=== PATIENT | male | born 1970 | race African-American/Black ===

== ENCOUNTER 2020-09-28 17:55 | Inpatient (IN) ==
[2020-09-28] MEDS ORDERED: SODIUM CHLORIDE 0.9% 1,000 ML IV STA ×3 (18:25→22:09)
[2020-09-28] MEDS ORDERED: PIPERACILLIN/TAZOBACTAM 3,375 MG in SODIUM CHLORIDE 0.9% 100 ML IV STA (18:25)
[2020-09-28 19:03] LABS: Basophils % 0.1 % (0.0-0.8); Eosinophils % 0.1 % (0.00-10.9); Hematocrit 29.2 VOL% (42.0-52.0); Hemoglobin 9.5 GM/DL (14.0-18.0); Immature Granulocytes % 1.3 %; Immature Granulocytes Absolute 0.21 #; Lymphocytes # 1.4 10*3/uL (1.4-4.0); Lymphocytes % 8.3 % (21.2-54.2); Mean Corpuscular HGB Conc 32.5 GM/DL (32-36); Mean Corpuscular Volume 87.2 FL (87-102); Monocytes % 7.9 % (1.7-12.7); Neutrophils % 82.3 % (38.7-73.9); Platelet Count 320 T/CUMM (130-400); Red Blood Count 3.35 MC/CUMM (3.8-5.5); Red Cell Distribution Width 11.7 % (9.3-17.3); White Blood Count 16.8 T/CUMM (4-12)
[2020-09-28 19:23] LABS: Alanine Aminotransferase 75 U/L (16-61); Albumin 2.1 G/DL (3.4-5.0); Alkaline Phosphatase 193 U/L (45-117); Aspartate Amino Transferase 43 U/L (0-37); Bilirubin,Total < 0.39 MG/DL (0.2-1.0); Blood Urea Nitrogen 24 MG/DL (7-18); Calcium 8.4 MG/DL (8.5-10.1); Carbon Dioxide 26 MMOL/L (21-32); Estimated Glom Filtration Rate 75 ML/MIN; Glucose 217 MG/DL (74-106); Osmolality,Calculated 278.2 MOS/KG (273-304); Potassium 3.9 MMOL/L (3.5-5.1); Sodium 134 MMOL/L (136-145)
[2020-09-28] MEDS ORDERED: SODIUM CHLORIDE 0.9% 125 ML IV STA (19:25)
[2020-09-28] MEDS ORDERED: VANCOMYCIN INJ 1,250 MG in SODIUM CHLORIDE 0.9% 250 ML IV STA (19:36)
[2020-09-28 20:01] LABS: Sedimentation Rate-Westergren 118 MM/HR (0-20)
[2020-09-28 20:17] LABS: Hepatitis B Core IgM Quant 0.14 Index; Hepatitis B Surface Ag Quant < 0.10 Index; Hepatitis B Surface Ag Result Non-Reactive (NonReactive); Hepatitis C Virus Ab Quant 0.05 Index; Hepatitis C Virus Ab Result Non-Reactive (NonReactive)
[2020-09-28] MEDS ORDERED: VANCOMYCIN 1,000 MG VIAL ONE (20:36)
[2020-09-28] MEDS: SODIUM CHLORIDE 0.9% 1,000 ML IV SCH (22:15)
[2020-09-28] MEDS ORDERED: ACETAMINOPHEN 500 MG TABLET PO STA (22:40)
[2020-09-28] MEDS ORDERED: ACETAMINOPHEN 500 MG TABLET ONE (22:41)
[2020-09-28] MEDS ORDERED: ONDANSETRON 4 MG/2 ML VIAL ONE (22:45)
[2020-09-28] MEDS ORDERED: HYDROmorphone 2 MG/1 ML VIAL ONE (22:45)
[2020-09-28] MEDS ORDERED: HYDROmorphone 2 MG/1 ML VIAL IV STA (22:54)
[2020-09-28] MEDS ORDERED: ONDANSETRON 4 MG/2 ML VIAL IV STA (22:54)
[2020-09-28] MEDS ORDERED: ALBUTEROL/IPRATROPIUM 3 ML NEB RESP TX PRN (23:40)
[2020-09-28] MEDS ORDERED: DOCUSATE SODIUM 100 MG CAPSULE PO PRN (23:40)
[2020-09-28] MEDS ORDERED: ONDANSETRON 4 MG/2 ML VIAL IV PRN (23:40)
[2020-09-28] MEDS ORDERED: GLUCAGON 1 MG VIAL IM PRN (23:40)
[2020-09-28] MEDS ORDERED: DEXTROSE 50% 25 GM/50 ML VIAL IV PRN (23:40)
[2020-09-28] MEDS ORDERED: ACETAMINOPHEN 325 MG TABLET PO PRN (23:40)
[2020-09-29] MEDS: ENOXAPARIN 40 MG/0.4 ML SYRINGE SUBCUT SCH (00:53)
[2020-09-29] MEDS: PIPERACILLIN/TAZOBACTAM 3,375 MG in SODIUM CHLORIDE 0.9% 100 ML IV SCH ×3 (02:13→18:16)
[2020-09-29] MEDS: HYDROmorphone 2 MG/1 ML VIAL IV PRN (03:04)
[2020-09-29] MEDS: SODIUM CHLORIDE 0.9% 1,000 ML IV SCH ×2 (03:06→13:53)
[2020-09-29 03:17] LABS: Bilirubin,Urine Negative (Negative); Blood, Urine Negative (Negative); Glucose,Urine (UA) >=500 mg/dL (Negative); Hyaline Casts,Urine 1 /LPF (0-3); Ketones,Urine Negative (Negative); Nitrite,Urine Negative (Negative); Protein,Urine 100 MG/DL; RBC,Urine 3 /HPF (0-4); Red Blood Cell Casts,Urine 1 /LPF (<1); Urine Appearance CLEAR (Clear); Urine Color Yellow (Yellow); Urine Specific Gravity 1.023 (1.001-1.035); Urine Urobilinogen < 2.0 EU/DL (0.2-1.0); WBC,Urine 2 /HPF (0-6)
[2020-09-29 03:24] LABS: Barbiturates Screen,Urine Negative (Negative); Benzodiazepines Screen,Urine Negative (Negative); Cannabinoid Screen,Urine Negative (Negative); Opiate Screen,Urine Positive (Negative); Phencyclidine Screen,Urine Negative (Negative)
[2020-09-29 07:05] LABS: Basophils # 0.1 10*3/uL (0.0-0.2); Basophils % 0.5 % (0.0-0.8); Eosinophils % 0.2 % (0.00-10.9); Hematocrit 25.9 VOL% (42.0-52.0); Hemoglobin 8.4 GM/DL (14.0-18.0); Immature Granulocytes % 1.1 %; Immature Granulocytes Absolute 0.15 #; Lymphocytes # 1.5 10*3/uL (1.4-4.0); Lymphocytes % 10.3 % (21.2-54.2); Mean Corpuscular HGB Conc 32.4 GM/DL (32-36); Mean Platelet Volume 10.3 FL (9.6-12.0); Neutrophils % 78.9 % (38.7-73.9); Platelet Count 305 T/CUMM (130-400); Red Blood Count 2.91 MC/CUMM (3.8-5.5); Red Cell Distribution Width 11.9 % (9.3-17.3)
[2020-09-29] MEDS: INSULIN LISPRO 100 UNIT/ML SUBCUT SCH ×2 (07:50→11:30)
[2020-09-29] MEDS ORDERED: INSULIN ASPART PROTAMINE/ASPART 70/30 100 UNIT/ML SUBCUT SCH ×2 (08:00→17:00)
[2020-09-29] MEDS ORDERED: ceFAZolin 1,000 MG in SYRINGE 1 EACH IV ONE (08:05)
[2020-09-29 08:18] LABS: Albumin 1.9 G/DL (3.4-5.0); Bilirubin,Total 0.9 MG/DL (0.2-1.0); Calcium 8.1 MG/DL (8.5-10.1); Osmolality,Calculated 285.5 MOS/KG (273-304); Potassium 3.9 MMOL/L (3.5-5.1); Total Protein 6.3 G/DL (6.4-8.3)
[2020-09-29] MEDS ORDERED: propofoL 200 MG/20 ML VIAL IV ONE ×2 (09:46→11:07)
[2020-09-29] MEDS ORDERED: fentaNYL 100 MCG/2 ML VIAL ONE (09:46)
[2020-09-29] MEDS ORDERED: ONDANSETRON 4 MG/2 ML VIAL ONE (09:46)
[2020-09-29] MEDS ORDERED: LIDOCAINE 2% 5 ML VIAL ONE (09:46)
[2020-09-29] MEDS ORDERED: SEVOFLURANE 1 UNIT/15 MINUTE INH ONE (11:10)
[2020-09-29] MEDS ORDERED: PHENYLEPHRINE 1 MG/10 ML SYRINGE IV ONE (11:12)
[2020-09-29] MEDS ORDERED: ePHEDrine 50 MG/ML VIAL ONE (11:37)
[2020-09-29] MEDS ORDERED: GLYCOPYRROLATE 0.4 MG/2 ML VIAL ONE (11:37)
[2020-09-29] MEDS ORDERED: NALOXONE 0.4 MG/ML VIAL ONE (11:38)
[2020-09-29] MEDS ORDERED: NOREPINEPHRINE 4 MG/4 ML VIAL IV ONE (11:49)
[2020-09-29 12:15] LABS: Basophils % 0.1 % (0.0-0.8); Eosinophils % 0.1 % (0.00-10.9); Hemoglobin 8.6 GM/DL (14.0-18.0); Immature Granulocytes % 2.4 %; Immature Granulocytes Absolute 0.51 #; Lymphocytes # 3.6 10*3/uL (1.4-4.0); Lymphocytes % 16.7 % (21.2-54.2); Mean Corpuscular HGB Conc 31.9 GM/DL (32-36); Monocytes % 9.2 % (1.7-12.7); Neutrophils % 71.5 % (38.7-73.9); Platelet Count 323 T/CUMM (130-400); Red Cell Distribution Width 11.9 % (9.3-17.3); White Blood Count 21.2 T/CUMM (4-12)
[2020-09-29] MEDS ORDERED: FUROSEMIDE 40 MG/4 ML VIAL IV ONE (12:18)
[2020-09-29] MEDS ORDERED: MIDAZOLAM 2 MG/2 ML VIAL ONE (12:28)
[2020-09-29 12:44] LABS: Bilirubin,Total 0.4 MG/DL (0.2-1.0); Calcium 7.8 MG/DL (8.5-10.1); Osmolality,Calculated 288.4 MOS/KG (273-304); Potassium 3.7 MMOL/L (3.5-5.1); Total Protein 5.5 G/DL (6.4-8.3)
[2020-09-29 13:06] LABS: ABG Base Excess -0.7 MMOL/L (-2.5-2.5); ABG HCO3 23.6 MMOL/L (20-26); ABG PCO2 37.4 MM HG (35-48); ABG PH 7.418 (7.35-7.45); ABG PO2 77.1 MM HG (80-95); ABG TCO2 24.8 MMOL/L (23-27)
[2020-09-29] MEDS ORDERED: MIDAZOLAM 10 MG/2 ML VIAL ONE ×2 (13:39→13:50)
[2020-09-29] MEDS ORDERED: MIDAZOLAM 2 MG/2 ML VIAL IV ONE (13:39)
[2020-09-29 13:42] LABS: Bilirubin,Urine Negative (Negative); Blood, Urine Small mg/dL (Negative); Glucose,Urine (UA) >=500 mg/dL (Negative); Hyaline Casts,Urine 1 /LPF (0-3); Ketones,Urine Negative (Negative); Mucus,Urine Occasional /LPF (Occasional); Nitrite,Urine Negative (Negative); Protein,Urine 100 MG/DL; RBC,Urine 18 /HPF (0-4); Squamous Epithelial Cell,Urine Occasional /HPF (0-10); Urine Appearance Slightly Hazy (Clear); Urine Color Yellow (Yellow); Urine Specific Gravity 1.014 (1.001-1.035); Urine Urobilinogen < 2.0 EU/DL (0.2-1.0); WBC,Urine 66 /HPF (0-6)
[2020-09-29] MEDS ORDERED: NOREPINEPHRINE 16 MG in DEXTROSE 5% 234 ML IV PRN (14:04)
[2020-09-29 14:23] LABS: Partial Thromboplastin Time 27.5 SECS (23.9-33.8)
[2020-09-29] MEDS: MIDAZOLAM 100 MG in SODIUM CHLORIDE 0.9% 80 ML IV SCH (15:30)
[2020-09-29] MEDS: CISATRACURIUM 200 MG in SODIUM CHLORIDE 0.9% 180 ML IV PRN (15:30)
[2020-09-29] MEDS: fentaNYL INJ 1,250 MCG in SODIUM CHLORIDE 0.9% 225 ML IV PRN ×2 (15:30→23:43)
[2020-09-29 16:13] LABS: Troponin I 0.166 NG/ML (0.00-0.045)
[2020-09-29] MEDS: VANCOMYCIN INJ 1,250 MG in SODIUM CHLORIDE 0.9% 250 ML IV SCH ×2 (16:15→20:43)
[2020-09-29] MEDS ORDERED: MAGNESIUM SULF RIDER 1 GM in PREMIX 1 EACH IV PRN (16:29)
[2020-09-29] MEDS: FUROSEMIDE 40 MG/4 ML VIAL IV SCH (17:18)
[2020-09-29] MEDS: ASPIRIN CHEW 81 MG TABLET PO SCH (17:18)
[2020-09-29] MEDS: carvediloL 6.25 MG TABLET PO SCH (17:18)
[2020-09-29] MEDS: POTASSIUM CHLORIDE RIDER 20 MEQ in PREMIX 1 EACH IV PRN ×2 (17:23→23:47)
[2020-09-29] MEDS ORDERED: INSULIN LISPRO 100 UNIT/ML SUBCUT SCH (18:00)
[2020-09-29] MEDS: INSULIN REGULAR 100 UNIT/ML IV SCH (20:33)
[2020-09-29] MEDS: PANTOPRAZOLE 40 MG VIAL IV SCH (20:34)
[2020-09-29] MEDS: MINERAL OIL/PETROLATUM OPH OINT 3.5 GM TUBE BOTH EYES SCH (20:36)
[2020-09-29] MEDS ORDERED: ROSUVASTATIN 20 MG TABLET PO SCH (21:00)
[2020-09-29 21:28] LABS: Basophils % 0.1 % (0.0-0.8); Hematocrit 24.1 VOL% (42.0-52.0); Hemoglobin 7.8 GM/DL (14.0-18.0); Immature Granulocytes % 1.2 %; Immature Granulocytes Absolute 0.18 #; Lymphocytes # 0.7 10*3/uL (1.4-4.0); Mean Corpuscular HGB Conc 32.4 GM/DL (32-36); Mean Platelet Volume 9.5 FL (9.6-12.0); Neutrophils % 87.7 % (38.7-73.9); Platelet Count 279 T/CUMM (130-400); Red Blood Count 2.74 MC/CUMM (3.8-5.5); Red Cell Distribution Width 11.9 % (9.3-17.3); White Blood Count 14.7 T/CUMM (4-12)
[2020-09-29 21:41] LABS: INR 1.1; PT Patient Result 11.7 SECS (9.8-11.9); Partial Thromboplastin Time 28.6 SECS (23.9-33.8)
[2020-09-29 23:29] LABS: Calcium 7.5 MG/DL (8.5-10.1); Osmolality,Calculated 297.1 MOS/KG (273-304); Potassium 3.6 MMOL/L (3.5-5.1)
[2020-09-30] MEDS: ENOXAPARIN 40 MG/0.4 ML SYRINGE SUBCUT SCH (00:10)
[2020-09-30] MEDS: INSULIN REGULAR 100 UNIT/ML IV SCH ×7 (00:17→22:10)
[2020-09-30] MEDS: PIPERACILLIN/TAZOBACTAM 3,375 MG in SODIUM CHLORIDE 0.9% 100 ML IV SCH ×3 (01:53→17:45)
[2020-09-30 03:36] LABS: ABG Base Excess 1.8 MMOL/L (-2.5-2.5); ABG HCO3 24.2 MMOL/L (20-26); ABG Oxygen Saturation 99.1 % (95-100); ABG PCO2 29.4 MM HG (35-48); ABG PH 7.533 (7.35-7.45); ABG PO2 331.3 MM HG (80-95); ABG TCO2 25.1 MMOL/L (23-27)
[2020-09-30 03:43] LABS: Basophils % 0.2 % (0.0-0.8); Eosinophils % 0.1 % (0.00-10.9); Hematocrit 23.2 VOL% (42.0-52.0); Hemoglobin 7.6 GM/DL (14.0-18.0); Immature Granulocytes % 0.9 %; Lymphocytes # 0.9 10*3/uL (1.4-4.0); Lymphocytes % 7.8 % (21.2-54.2); Mean Corpuscular HGB Conc 32.8 GM/DL (32-36); Mean Corpuscular Volume 86.9 FL (87-102); Mean Platelet Volume 9.6 FL (9.6-12.0); Monocytes % 5.3 % (1.7-12.7); Neutrophils % 85.7 % (38.7-73.9); Platelet Count 274 T/CUMM (130-400); Red Blood Count 2.67 MC/CUMM (3.8-5.5); Red Cell Distribution Width 11.9 % (9.3-17.3); White Blood Count 11.6 T/CUMM (4-12)
[2020-09-30 04:19] LABS: Calcium 7.6 MG/DL (8.5-10.1); INR 1.1; PT Patient Result 11.6 SECS (9.8-11.9); Partial Thromboplastin Time 29.6 SECS (23.9-33.8); Potassium 3.5 MMOL/L (3.5-5.1)
[2020-09-30 04:27] LABS: Bilirubin,Urine Negative (Negative); Blood, Urine Moderate mg/dL (Negative); Glucose,Urine (UA) >=500 mg/dL (Negative); Ketones,Urine Negative (Negative); Nitrite,Urine Negative (Negative); Protein,Urine Negative; Urine Appearance CLEAR (Clear); Urine Color Straw (Yellow); Urine Specific Gravity 1.009 (1.001-1.035); Urine Urobilinogen < 2.0 EU/DL (0.2-1.0)
[2020-09-30] MEDS: SODIUM CHLORIDE 0.9% 1,000 ML IV SCH ×2 (05:11→12:35)
[2020-09-30] MEDS: POTASSIUM CHLORIDE RIDER 20 MEQ in PREMIX 1 EACH IV PRN ×3 (05:20→14:20)
[2020-09-30] MEDS: fentaNYL INJ 1,250 MCG in SODIUM CHLORIDE 0.9% 225 ML IV PRN ×2 (08:00→16:30)
[2020-09-30] MEDS: carvediloL 6.25 MG TABLET PO SCH (08:15)
[2020-09-30] MEDS: ASPIRIN CHEW 81 MG TABLET PO SCH (08:31)
[2020-09-30] MEDS: MINERAL OIL/PETROLATUM OPH OINT 3.5 GM TUBE BOTH EYES SCH ×3 (08:33→21:45)
[2020-09-30] MEDS: VANCOMYCIN INJ 1,250 MG in SODIUM CHLORIDE 0.9% 250 ML IV SCH ×2 (08:33→21:51)
[2020-09-30] MEDS: FUROSEMIDE 40 MG/4 ML VIAL IV SCH ×2 (08:35→16:49)
[2020-09-30 09:14] LABS: Basophils % 0.2 % (0.0-0.8); Eosinophils % 0.3 % (0.00-10.9); Hematocrit 22.9 VOL% (42.0-52.0); Hemoglobin 7.8 GM/DL (14.0-18.0); Immature Granulocytes % 0.6 %; Immature Granulocytes Absolute 0.05 #; Lymphocytes # 0.7 10*3/uL (1.4-4.0); Mean Corpuscular HGB Conc 34.1 GM/DL (32-36); Mean Corpuscular Volume 85.8 FL (87-102); Mean Platelet Volume 9.6 FL (9.6-12.0); Neutrophils % 85.9 % (38.7-73.9); Platelet Count 256 T/CUMM (130-400); Red Blood Count 2.67 MC/CUMM (3.8-5.5); Red Cell Distribution Width 11.9 % (9.3-17.3); White Blood Count 8.9 T/CUMM (4-12)
[2020-09-30 09:26] LABS: INR 1.1; PT Patient Result 11.8 SECS (9.8-11.9); Partial Thromboplastin Time 29.3 SECS (23.9-33.8)
[2020-09-30 09:28] LABS: Calcium 7.6 MG/DL (8.5-10.1); Osmolality,Calculated 297.8 MOS/KG (273-304); Potassium 3.2 MMOL/L (3.5-5.1)
[2020-09-30 14:04] LABS: ABG Base Excess 1.8 MMOL/L (-2.5-2.5); ABG HCO3 26.1 MMOL/L (20-26); ABG Oxygen Saturation 99.9 % (95-100); ABG PCO2 33.4 MM HG (35-48); ABG PH 7.481 (7.35-7.45); ABG TCO2 22.5 MMOL/L (23-27)
[2020-09-30 14:15] LABS: Basophils % 0.1 % (0.0-0.8); Eosinophils % 0.3 % (0.00-10.9); Hematocrit 20.4 VOL% (42.0-52.0); Hemoglobin 6.7 GM/DL (14.0-18.0); Immature Granulocytes % 0.9 %; Immature Granulocytes Absolute 0.08 #; Lymphocytes # 0.8 10*3/uL (1.4-4.0); Lymphocytes % 8.6 % (21.2-54.2); Mean Corpuscular HGB Conc 32.8 GM/DL (32-36); Mean Corpuscular Volume 87.9 FL (87-102); Mean Platelet Volume 9.9 FL (9.6-12.0); Neutrophils % 85.1 % (38.7-73.9); Platelet Count 275 T/CUMM (130-400); Red Blood Count 2.32 MC/CUMM (3.8-5.5); Red Cell Distribution Width 11.9 % (9.3-17.3); White Blood Count 9.1 T/CUMM (4-12)
[2020-09-30 14:26] LABS: INR 1.1; PT Patient Result 11.7 SECS (9.8-11.9); Partial Thromboplastin Time 29.5 SECS (23.9-33.8)
[2020-09-30 14:36] LABS: Band Neutrophils 1 % (0-10); Lymphocytes 10 % (20-55); Segmented Neutrophils 83 % (50-85); Total Cells Counted 100
[2020-09-30 14:37] LABS: Calcium 7.5 MG/DL (8.5-10.1); Platelet Estimate Adequate; Potassium 3.4 MMOL/L (3.5-5.1)
[2020-09-30] MEDS ORDERED: SODIUM CHLORIDE 0.9% 1,000 ML IV PRN (14:47)
[2020-09-30 16:45] LABS: % Iron Saturation 23.1 % (18-50); Ferritin 568.3 ng/ml (26-388)
[2020-09-30] MEDS ORDERED: POTASSIUM CHLORIDE RIDER 10 MEQ in PREMIX 1 EACH IV PRN (17:05)
[2020-09-30 21:04] LABS: INR 1.1; PT Patient Result 11.9 SECS (9.8-11.9); Partial Thromboplastin Time 28.5 SECS (23.9-33.8)
[2020-09-30] MEDS: MIDAZOLAM 100 MG in SODIUM CHLORIDE 0.9% 80 ML IV SCH (21:15)
[2020-09-30 21:16] LABS: Calcium 7.7 MG/DL (8.5-10.1); Potassium 3.6 MMOL/L (3.5-5.1)
[2020-09-30] MEDS: carvediloL 3.125 MG TABLET PO SCH (21:21)
[2020-09-30] MEDS: PANTOPRAZOLE 40 MG VIAL IV SCH (21:45)
[2020-09-30 22:08] LABS: Folate 15.5 NG/ML (5.38-24.0)
[2020-09-30 22:28] LABS: Basophils % 0.2 % (0.0-0.8); Eosinophils % 0.4 % (0.00-10.9); Immature Granulocytes % 0.7 %; Immature Granulocytes Absolute 0.07 #; Lymphocytes # 0.6 10*3/uL (1.4-4.0); Lymphocytes % 6.1 % (21.2-54.2); Mean Corpuscular HGB Conc 32.3 GM/DL (32-36); Mean Corpuscular Volume 89.1 FL (87-102); Mean Platelet Volume 9.5 FL (9.6-12.0); Monocytes % 4.8 % (1.7-12.7); Neutrophils % 87.8 % (38.7-73.9); Platelet Count 262 T/CUMM (130-400); Red Blood Count 3.48 MC/CUMM (3.8-5.5); Red Cell Distribution Width 12.3 % (9.3-17.3); White Blood Count 10.1 T/CUMM (4-12)
[2020-10-01] MEDS: fentaNYL INJ 1,250 MCG in SODIUM CHLORIDE 0.9% 225 ML IV PRN ×3 (00:31→18:01)
[2020-10-01] MEDS: ENOXAPARIN 40 MG/0.4 ML SYRINGE SUBCUT SCH (00:32)
[2020-10-01] MEDS: INSULIN REGULAR 100 UNIT/ML IV SCH ×10 (00:32→20:19)
[2020-10-01] MEDS: CISATRACURIUM 200 MG in SODIUM CHLORIDE 0.9% 180 ML IV PRN (00:54)
[2020-10-01] MEDS: PIPERACILLIN/TAZOBACTAM 3,375 MG in SODIUM CHLORIDE 0.9% 100 ML IV SCH ×3 (02:24→18:00)
[2020-10-01 05:15] LABS: Basophils % 0.2 % (0.0-0.8); Eosinophils % 0.4 % (0.00-10.9); Hematocrit 31.6 VOL% (42.0-52.0); Hemoglobin 10.2 GM/DL (14.0-18.0); Lymphocytes # 0.7 10*3/uL (1.4-4.0); Lymphocytes % 6.6 % (21.2-54.2); Mean Corpuscular HGB Conc 32.3 GM/DL (32-36); Mean Corpuscular Volume 89.5 FL (87-102); Mean Platelet Volume 9.7 FL (9.6-12.0); Monocytes % 5.3 % (1.7-12.7); Neutrophils % 86.5 % (38.7-73.9); Platelet Count 279 T/CUMM (130-400); Red Blood Count 3.53 MC/CUMM (3.8-5.5); Red Cell Distribution Width 12.3 % (9.3-17.3); White Blood Count 10.3 T/CUMM (4-12)
[2020-10-01 05:19] LABS: ABG Base Excess -1.5 MMOL/L (-2.5-2.5); ABG HCO3 23.2 MMOL/L (20-26); ABG Oxygen Saturation 98.6 % (95-100); ABG PCO2 46.4 MM HG (35-48); ABG PH 7.334 (7.35-7.45); ABG TCO2 22.1 MMOL/L (23-27)
[2020-10-01 05:30] LABS: INR 1.1; PT Patient Result 11.3 SECS (9.8-11.9); Partial Thromboplastin Time 28.7 SECS (23.9-33.8)
[2020-10-01 05:39] LABS: Troponin I 0.039 NG/ML (0.00-0.045)
[2020-10-01 05:42] LABS: Calcium 7.7 MG/DL (8.5-10.1); Osmolality,Calculated 296.7 MOS/KG (273-304); Potassium 4.5 MMOL/L (3.5-5.1)
[2020-10-01] MEDS: SODIUM CHLORIDE 0.9% 1,000 ML IV SCH ×2 (06:38→20:04)
[2020-10-01] MEDS: ASPIRIN CHEW 81 MG TABLET PO SCH (08:06)
[2020-10-01] MEDS: MINERAL OIL/PETROLATUM OPH OINT 3.5 GM TUBE BOTH EYES SCH ×3 (08:06→22:41)
[2020-10-01] MEDS: FUROSEMIDE 40 MG/4 ML VIAL IV SCH ×2 (08:06→17:59)
[2020-10-01] MEDS: carvediloL 3.125 MG TABLET PO SCH ×2 (08:06→22:22)
[2020-10-01] MEDS ORDERED: VANCOMYCIN INJ 1,250 MG in SODIUM CHLORIDE 0.9% 250 ML IV SCH (12:00)
[2020-10-01] MEDS ORDERED: PHENYLEPHRINE DRIP 40 MG/250 ML PREMIX IV ONE (16:11)
[2020-10-01] MEDS: MIDAZOLAM 100 MG in SODIUM CHLORIDE 0.9% 80 ML IV SCH (17:25)
[2020-10-01] MEDS: PANTOPRAZOLE 40 MG VIAL IV SCH (22:43)
[2020-10-02] MEDS: INSULIN REGULAR 100 UNIT/ML IV SCH ×6 (00:19→22:22)
[2020-10-02] MEDS: fentaNYL INJ 1,250 MCG in SODIUM CHLORIDE 0.9% 225 ML IV PRN ×3 (00:50→17:30)
[2020-10-02] MEDS: ENOXAPARIN 40 MG/0.4 ML SYRINGE SUBCUT SCH (00:50)
[2020-10-02] MEDS: PIPERACILLIN/TAZOBACTAM 3,375 MG in SODIUM CHLORIDE 0.9% 100 ML IV SCH ×4 (02:00→21:56)
[2020-10-02 04:47] LABS: Basophils % 0.1 % (0.0-0.8); Eosinophils % 0.3 % (0.00-10.9); Hematocrit 29.1 VOL% (42.0-52.0); Hemoglobin 9.1 GM/DL (14.0-18.0); Immature Granulocytes Absolute 0.09 #; Lymphocytes # 1.2 10*3/uL (1.4-4.0); Mean Corpuscular HGB Conc 31.3 GM/DL (32-36); Mean Corpuscular Volume 92.7 FL (87-102); Mean Platelet Volume 9.5 FL (9.6-12.0); Neutrophils % 76.6 % (38.7-73.9); Platelet Count 316 T/CUMM (130-400); Red Blood Count 3.14 MC/CUMM (3.8-5.5); Red Cell Distribution Width 12.5 % (9.3-17.3); White Blood Count 9.3 T/CUMM (4-12)
[2020-10-02 04:48] LABS: ABG Base Excess -2.1 MMOL/L (-2.5-2.5); ABG HCO3 22.6 MMOL/L (20-26); ABG Oxygen Saturation 98.5 % (95-100); ABG PH 7.325 (7.35-7.45); ABG TCO2 22.2 MMOL/L (23-27)
[2020-10-02 05:03] LABS: Calcium 7.8 MG/DL (8.5-10.1); Osmolality,Calculated 299.6 MOS/KG (273-304); Potassium 4.6 MMOL/L (3.5-5.1)
[2020-10-02] MEDS: carvediloL 6.25 MG TABLET PO SCH ×2 (09:00→21:55)
[2020-10-02] MEDS: FUROSEMIDE 40 MG/4 ML VIAL IV SCH (09:01)
[2020-10-02] MEDS: ASPIRIN CHEW 81 MG TABLET PO SCH (09:01)
[2020-10-02] MEDS: MINERAL OIL/PETROLATUM OPH OINT 3.5 GM TUBE BOTH EYES SCH ×3 (09:02→21:56)
[2020-10-02] MEDS: hydrALAZINE 20 MG/1 ML VIAL IV PRN (14:45)
[2020-10-02] MEDS: HYDROmorphone 2 MG/1 ML VIAL IV PRN (15:14)
[2020-10-02] MEDS: MIDAZOLAM 100 MG in SODIUM CHLORIDE 0.9% 80 ML IV SCH (15:43)
[2020-10-02] MEDS: SODIUM CHLORIDE 0.9% 1,000 ML IV SCH (17:46)
[2020-10-02] MEDS: PANTOPRAZOLE 40 MG VIAL IV SCH (21:55)
[2020-10-03] MEDS: fentaNYL INJ 1,250 MCG in SODIUM CHLORIDE 0.9% 225 ML IV PRN ×3 (00:50→17:13)
[2020-10-03] MEDS: INSULIN REGULAR 100 UNIT/ML IV SCH ×5 (01:13→18:17)
[2020-10-03] MEDS: ENOXAPARIN 40 MG/0.4 ML SYRINGE SUBCUT SCH (01:13)
[2020-10-03 04:31] LABS: ABG Base Excess -0.8 MMOL/L (-2.5-2.5); ABG HCO3 23.8 MMOL/L (20-26); ABG Oxygen Saturation 98.8 % (95-100); ABG PCO2 46.9 MM HG (35-48); ABG PH 7.343 (7.35-7.45); Basophils % 0.2 % (0.0-0.8); Eosinophils # 0.1 10*3/uL (0.0-0.87); Eosinophils % 0.5 % (0.00-10.9); Hematocrit 30.3 VOL% (42.0-52.0); Hemoglobin 9.7 GM/DL (14.0-18.0); Immature Granulocytes % 0.9 %; Immature Granulocytes Absolute 0.11 #; Mean Corpuscular Volume 89.9 FL (87-102); Mean Platelet Volume 8.9 FL (9.6-12.0); Monocytes % 7.7 % (1.7-12.7); Neutrophils % 82.7 % (38.7-73.9); Platelet Count 356 T/CUMM (130-400); Red Blood Count 3.37 MC/CUMM (3.8-5.5); Red Cell Distribution Width 12.2 % (9.3-17.3); White Blood Count 12.2 T/CUMM (4-12)
[2020-10-03 04:45] LABS: Calcium 8.2 MG/DL (8.5-10.1); Osmolality,Calculated 301.4 MOS/KG (273-304); Potassium 4.3 MMOL/L (3.5-5.1)
[2020-10-03] MEDS: PIPERACILLIN/TAZOBACTAM 3,375 MG in SODIUM CHLORIDE 0.9% 100 ML IV SCH ×3 (05:16→21:29)
[2020-10-03] MEDS: MINERAL OIL/PETROLATUM OPH OINT 3.5 GM TUBE BOTH EYES SCH ×3 (09:15→21:29)
[2020-10-03] MEDS: ASPIRIN CHEW 81 MG TABLET PO SCH (09:15)
[2020-10-03] MEDS: carvediloL 6.25 MG TABLET PO SCH ×2 (09:15→21:19)
[2020-10-03] MEDS: MIDAZOLAM 100 MG in SODIUM CHLORIDE 0.9% 80 ML IV SCH (14:51)
[2020-10-03] MEDS: PANTOPRAZOLE 40 MG VIAL IV SCH (21:19)
[2020-10-04] MEDS: INSULIN REGULAR 100 UNIT/ML IV SCH ×4 (00:04→18:09)
[2020-10-04] MEDS: ENOXAPARIN 40 MG/0.4 ML SYRINGE SUBCUT SCH (00:04)
[2020-10-04] MEDS: fentaNYL INJ 1,250 MCG in SODIUM CHLORIDE 0.9% 225 ML IV PRN ×3 (02:15→19:23)
[2020-10-04 04:40] LABS: ABG Base Excess -0.4 MMOL/L (-2.5-2.5); ABG HCO3 24.1 MMOL/L (20-26); ABG Oxygen Saturation 98.4 % (95-100); ABG PCO2 45.1 MM HG (35-48); ABG PH 7.357 (7.35-7.45); ABG TCO2 23.1 MMOL/L (23-27)
[2020-10-04 04:45] LABS: Basophils % 0.1 % (0.0-0.8); Eosinophils # 0.1 10*3/uL (0.0-0.87); Eosinophils % 0.6 % (0.00-10.9); Hematocrit 31.7 VOL% (42.0-52.0); Hemoglobin 9.9 GM/DL (14.0-18.0); Immature Granulocytes % 1.3 %; Immature Granulocytes Absolute 0.17 #; Lymphocytes # 0.8 10*3/uL (1.4-4.0); Lymphocytes % 6.3 % (21.2-54.2); Mean Corpuscular HGB Conc 31.2 GM/DL (32-36); Mean Corpuscular Volume 91.9 FL (87-102); Mean Platelet Volume 9.3 FL (9.6-12.0); Monocytes % 6.1 % (1.7-12.7); Neutrophils % 85.6 % (38.7-73.9); Platelet Count 412 T/CUMM (130-400); Red Blood Count 3.45 MC/CUMM (3.8-5.5); Red Cell Distribution Width 12.2 % (9.3-17.3); White Blood Count 13.4 T/CUMM (4-12)
[2020-10-04 05:06] LABS: Calcium 8.6 MG/DL (8.5-10.1); Potassium 4.5 MMOL/L (3.5-5.1)
[2020-10-04] MEDS: PIPERACILLIN/TAZOBACTAM 3,375 MG in SODIUM CHLORIDE 0.9% 100 ML IV SCH ×3 (05:18→20:22)
[2020-10-04] MEDS: MINERAL OIL/PETROLATUM OPH OINT 3.5 GM TUBE BOTH EYES SCH ×3 (09:32→21:42)
[2020-10-04] MEDS: ASPIRIN CHEW 81 MG TABLET PO SCH (09:36)
[2020-10-04] MEDS: carvediloL 6.25 MG TABLET PO SCH ×2 (09:36→20:20)
[2020-10-04] MEDS: amLODIPine 5 MG TABLET PO SCH (09:38)
[2020-10-04] MEDS: MIDAZOLAM 100 MG in SODIUM CHLORIDE 0.9% 80 ML IV SCH (15:39)
[2020-10-04] MEDS: PANTOPRAZOLE 40 MG VIAL IV SCH (20:20)
[2020-10-04] MEDS: hydrALAZINE 20 MG/1 ML VIAL IV PRN (20:21)
[2020-10-05] MEDS: ENOXAPARIN 40 MG/0.4 ML SYRINGE SUBCUT SCH (00:15)
[2020-10-05] MEDS: INSULIN REGULAR 100 UNIT/ML IV SCH ×4 (00:15→17:46)
[2020-10-05] MEDS: fentaNYL INJ 1,250 MCG in SODIUM CHLORIDE 0.9% 225 ML IV PRN ×2 (03:41→21:14)
[2020-10-05 04:21] LABS: Allen Test Positive; Pt O2 Delivery Device Ventilator
[2020-10-05 04:23] LABS: ABG Base Excess 1.2 MMOL/L (-2.5-2.5); ABG HCO3 25.5 MMOL/L (20-26); ABG Oxygen Saturation 98.9 % (95-100); ABG PCO2 43.5 MM HG (35-48); ABG TCO2 24.1 MMOL/L (23-27)
[2020-10-05 04:40] LABS: Basophils % 0.1 % (0.0-0.8); Eosinophils % 0.2 % (0.00-10.9); Hematocrit 28.8 VOL% (42.0-52.0); Hemoglobin 9.4 GM/DL (14.0-18.0); Immature Granulocytes % 1.7 %; Immature Granulocytes Absolute 0.17 #; Lymphocytes # 0.9 10*3/uL (1.4-4.0); Lymphocytes % 9.3 % (21.2-54.2); Mean Corpuscular HGB Conc 32.6 GM/DL (32-36); Mean Corpuscular Volume 90.6 FL (87-102); Mean Platelet Volume 9.3 FL (9.6-12.0); Monocytes % 9.5 % (1.7-12.7); Neutrophils % 79.2 % (38.7-73.9); Platelet Count 360 T/CUMM (130-400); Red Blood Count 3.18 MC/CUMM (3.8-5.5); White Blood Count 10.1 T/CUMM (4-12)
[2020-10-05 05:09] LABS: Calcium 8.3 MG/DL (8.5-10.1); Potassium 4.2 MMOL/L (3.5-5.1)
[2020-10-05] MEDS: PIPERACILLIN/TAZOBACTAM 3,375 MG in SODIUM CHLORIDE 0.9% 100 ML IV SCH ×3 (05:10→20:31)
[2020-10-05] MEDS: ASPIRIN CHEW 81 MG TABLET PO SCH (09:11)
[2020-10-05] MEDS: carvediloL 6.25 MG TABLET PO SCH ×2 (09:11→20:32)
[2020-10-05] MEDS: amLODIPine 5 MG TABLET PO SCH (09:12)
[2020-10-05] MEDS: HYDROmorphone 2 MG/1 ML VIAL IV PRN (09:13)
[2020-10-05] MEDS: MINERAL OIL/PETROLATUM OPH OINT 3.5 GM TUBE BOTH EYES SCH ×3 (09:13→20:32)
[2020-10-05] MEDS: MIDAZOLAM 100 MG in SODIUM CHLORIDE 0.9% 80 ML IV SCH (15:29)
[2020-10-05] MEDS: PANTOPRAZOLE 40 MG VIAL IV SCH (20:32)
[2020-10-06] MEDS: INSULIN REGULAR 100 UNIT/ML IV SCH ×4 (00:36→19:00)
[2020-10-06] MEDS: ENOXAPARIN 40 MG/0.4 ML SYRINGE SUBCUT SCH (00:36)
[2020-10-06 03:52] LABS: ABG Base Excess 1.1 MMOL/L (-2.5-2.5); ABG HCO3 25.4 MMOL/L (20-26); ABG Oxygen Saturation 98.3 % (95-100); ABG PCO2 49.7 MM HG (35-48); ABG PH 7.349 (7.35-7.45); ABG TCO2 24.8 MMOL/L (23-27)
[2020-10-06 04:40] LABS: Basophils % 0.1 % (0.0-0.8); Eosinophils # 0.1 10*3/uL (0.0-0.87); Eosinophils % 0.6 % (0.00-10.9); Hematocrit 32.6 VOL% (42.0-52.0); Hemoglobin 10.2 GM/DL (14.0-18.0); Immature Granulocytes % 2.7 %; Immature Granulocytes Absolute 0.21 #; Lymphocytes # 1.1 10*3/uL (1.4-4.0); Lymphocytes % 14.5 % (21.2-54.2); Mean Corpuscular HGB Conc 31.3 GM/DL (32-36); Mean Corpuscular Volume 91.1 FL (87-102); Mean Platelet Volume 9.2 FL (9.6-12.0); Monocytes % 10.1 % (1.7-12.7); Platelet Count 422 T/CUMM (130-400); Red Blood Count 3.58 MC/CUMM (3.8-5.5); Red Cell Distribution Width 12.1 % (9.3-17.3); White Blood Count 7.8 T/CUMM (4-12)
[2020-10-06 05:11] LABS: Calcium 8.7 MG/DL (8.5-10.1); Potassium 4.2 MMOL/L (3.5-5.1)
[2020-10-06] MEDS: PIPERACILLIN/TAZOBACTAM 3,375 MG in SODIUM CHLORIDE 0.9% 100 ML IV SCH ×2 (05:48→13:15)
[2020-10-06] MEDS: fentaNYL INJ 1,250 MCG in SODIUM CHLORIDE 0.9% 225 ML IV PRN (05:57)
[2020-10-06] MEDS ORDERED: FUROSEMIDE 40 MG/4 ML VIAL IV ONE (08:52)
[2020-10-06] MEDS: carvediloL 6.25 MG TABLET PO SCH ×2 (09:49→21:50)
[2020-10-06] MEDS: amLODIPine 5 MG TABLET PO SCH (09:49)
[2020-10-06] MEDS: ASPIRIN CHEW 81 MG TABLET PO SCH (09:49)
[2020-10-06] MEDS: MINERAL OIL/PETROLATUM OPH OINT 3.5 GM TUBE BOTH EYES SCH ×3 (09:51→22:48)
[2020-10-06] MEDS: MIDAZOLAM 100 MG in SODIUM CHLORIDE 0.9% 80 ML IV SCH (16:44)
[2020-10-06] MEDS: PANTOPRAZOLE 40 MG VIAL IV SCH (20:55)
[2020-10-06] MEDS: hydrALAZINE 20 MG/1 ML VIAL IV PRN (20:56)
[2020-10-06] MEDS: LORazepam 2 MG/1 ML VIAL IV PRN (20:56)
[2020-10-07] MEDS: INSULIN REGULAR 100 UNIT/ML IV SCH ×4 (00:17→17:50)
[2020-10-07] MEDS: ENOXAPARIN 40 MG/0.4 ML SYRINGE SUBCUT SCH (00:27)
[2020-10-07] MEDS: HYDROmorphone 2 MG/1 ML VIAL IV PRN ×6 (00:27→22:04)
[2020-10-07] MEDS: LORazepam 2 MG/1 ML VIAL IV PRN ×2 (04:08→09:04)
[2020-10-07] MEDS: hydrALAZINE 20 MG/1 ML VIAL IV PRN (04:08)
[2020-10-07 04:53] LABS: Basophils % 0.1 % (0.0-0.8); Hematocrit 27.5 VOL% (42.0-52.0); Immature Granulocytes % 1.6 %; Immature Granulocytes Absolute 0.21 #; Lymphocytes # 0.8 10*3/uL (1.4-4.0); Lymphocytes % 6.1 % (21.2-54.2); Mean Corpuscular HGB Conc 32.7 GM/DL (32-36); Mean Corpuscular Volume 88.7 FL (87-102); Mean Platelet Volume 8.9 FL (9.6-12.0); Monocytes % 6.6 % (1.7-12.7); Neutrophils % 85.6 % (38.7-73.9); Platelet Count 337 T/CUMM (130-400); Red Cell Distribution Width 11.9 % (9.3-17.3); White Blood Count 12.9 T/CUMM (4-12)
[2020-10-07 05:11] LABS: Calcium 8.7 MG/DL (8.5-10.1); Osmolality,Calculated 297.7 MOS/KG (273-304)
[2020-10-07] MEDS: MINERAL OIL/PETROLATUM OPH OINT 3.5 GM TUBE BOTH EYES SCH ×3 (09:14→22:01)
[2020-10-07] MEDS: carvediloL 6.25 MG TABLET PO SCH ×2 (11:06→22:01)
[2020-10-07] MEDS: amLODIPine 5 MG TABLET PO SCH (11:06)
[2020-10-07] MEDS: ASPIRIN CHEW 81 MG TABLET PO SCH (11:07)
[2020-10-07] MEDS ORDERED: LORazepam 2 MG/1 ML VIAL IV ONE (18:49)
[2020-10-08] MEDS: INSULIN REGULAR 100 UNIT/ML IV SCH ×4 (00:19→17:21)
[2020-10-08] MEDS: ENOXAPARIN 40 MG/0.4 ML SYRINGE SUBCUT SCH (00:19)
[2020-10-08] MEDS: HYDROmorphone 2 MG/1 ML VIAL IV PRN ×5 (02:14→22:03)
[2020-10-08 05:51] LABS: Basophils % 0.1 % (0.0-0.8); Eosinophils % 0.1 % (0.00-10.9); Hematocrit 32.1 VOL% (42.0-52.0); Hemoglobin 10.5 GM/DL (14.0-18.0); Immature Granulocytes % 1.2 %; Immature Granulocytes Absolute 0.19 #; Lymphocytes # 1.1 10*3/uL (1.4-4.0); Lymphocytes % 6.7 % (21.2-54.2); Mean Corpuscular HGB Conc 32.7 GM/DL (32-36); Mean Corpuscular Volume 87.2 FL (87-102); Mean Platelet Volume 9.7 FL (9.6-12.0); Monocytes % 6.4 % (1.7-12.7); Neutrophils % 85.5 % (38.7-73.9); Platelet Count 432 T/CUMM (130-400); Red Blood Count 3.68 MC/CUMM (3.8-5.5); Red Cell Distribution Width 11.8 % (9.3-17.3)
[2020-10-08 06:12] LABS: Calcium 8.6 MG/DL (8.5-10.1); Osmolality,Calculated 294.1 MOS/KG (273-304); Potassium 3.9 MMOL/L (3.5-5.1)
[2020-10-08] MEDS: ASPIRIN CHEW 81 MG TABLET PO SCH ×2 (08:36→09:02)
[2020-10-08] MEDS: carvediloL 6.25 MG TABLET PO SCH ×4 (08:36→22:03)
[2020-10-08] MEDS: PANTOPRAZOLE 40 MG TABLET PO SCH (09:02)
[2020-10-08] MEDS: amLODIPine 5 MG TABLET PO SCH (09:56)
[2020-10-08] MEDS: MINERAL OIL/PETROLATUM OPH OINT 3.5 GM TUBE BOTH EYES SCH ×3 (09:56→22:04)
[2020-10-08] MEDS ORDERED: LORazepam 2 MG/1 ML VIAL IV ONE (13:46)
[2020-10-09] MEDS ORDERED: LORazepam 2 MG/1 ML VIAL IV ONE (01:10)
[2020-10-09] MEDS: ENOXAPARIN 40 MG/0.4 ML SYRINGE SUBCUT SCH (01:32)
[2020-10-09] MEDS: INSULIN REGULAR 100 UNIT/ML IV SCH (01:59)
[2020-10-09] MEDS: INSULIN REGULAR 100 UNIT/ML SUBCUT SCH ×4 (04:04→18:24)
[2020-10-09] MEDS: ZIPRASIDONE 20 MG/1 ML VIAL IM PRN ×2 (04:22→14:44)
[2020-10-09] MEDS: HYDROmorphone 2 MG/1 ML VIAL IV PRN (05:51)
[2020-10-09 06:48] LABS: Basophils % 0.2 % (0.0-0.8); Eosinophils % 0.2 % (0.00-10.9); Hematocrit 30.2 VOL% (42.0-52.0); Hemoglobin 9.8 GM/DL (14.0-18.0); Immature Granulocytes % 0.9 %; Immature Granulocytes Absolute 0.13 #; Lymphocytes # 1.1 10*3/uL (1.4-4.0); Mean Corpuscular HGB Conc 32.5 GM/DL (32-36); Mean Corpuscular Volume 89.1 FL (87-102); Mean Platelet Volume 10.3 FL (9.6-12.0); Monocytes % 5.9 % (1.7-12.7); Neutrophils % 85.8 % (38.7-73.9); Platelet Count 381 T/CUMM (130-400); Red Blood Count 3.39 MC/CUMM (3.8-5.5); Red Cell Distribution Width 11.9 % (9.3-17.3); White Blood Count 15.2 T/CUMM (4-12)
[2020-10-09 07:05] LABS: Calcium 8.8 MG/DL (8.5-10.1); Osmolality,Calculated 292.4 MOS/KG (273-304); Potassium 3.7 MMOL/L (3.5-5.1)
[2020-10-09] MEDS: amLODIPine 5 MG TABLET PO SCH (11:25)
[2020-10-09] MEDS: PANTOPRAZOLE 40 MG TABLET PO SCH (11:25)
[2020-10-09] MEDS: carvediloL 6.25 MG TABLET PO SCH ×2 (11:25→21:28)
[2020-10-09] MEDS: ASPIRIN CHEW 81 MG TABLET PO SCH (11:25)
[2020-10-09] MEDS: LEVOFLOXACIN INJ 500 MG in PREMIX 1 EACH IV SCH (11:37)
[2020-10-09] MEDS: MINERAL OIL/PETROLATUM OPH OINT 3.5 GM TUBE BOTH EYES SCH ×3 (14:51→21:28)
[2020-10-09] MEDS: QUEtiapine 25 MG TABLET PO SCH (21:28)
[2020-10-09] MEDS: traZODone 50 MG TABLET PO SCH (21:28)
[2020-10-10] MEDS: ENOXAPARIN 40 MG/0.4 ML SYRINGE SUBCUT SCH (00:40)
[2020-10-10] MEDS: INSULIN REGULAR 100 UNIT/ML SUBCUT SCH ×4 (00:40→18:26)
[2020-10-10 05:13] LABS: Basophils % 0.1 % (0.0-0.8); Eosinophils # 0.1 10*3/uL (0.0-0.87); Eosinophils % 0.4 % (0.00-10.9); Hematocrit 30.5 VOL% (42.0-52.0); Immature Granulocytes % 1.1 %; Immature Granulocytes Absolute 0.15 #; Lymphocytes # 1.4 10*3/uL (1.4-4.0); Lymphocytes % 9.6 % (21.2-54.2); Mean Corpuscular HGB Conc 32.8 GM/DL (32-36); Mean Corpuscular Volume 87.1 FL (87-102); Mean Platelet Volume 10.4 FL (9.6-12.0); Monocytes % 6.4 % (1.7-12.7); Neutrophils % 82.4 % (38.7-73.9); Platelet Count 338 T/CUMM (130-400); Red Cell Distribution Width 11.9 % (9.3-17.3); White Blood Count 14.2 T/CUMM (4-12)
[2020-10-10 05:42] LABS: Calcium 8.7 MG/DL (8.5-10.1); Osmolality,Calculated 283.5 MOS/KG (273-304); Potassium 3.5 MMOL/L (3.5-5.1)
[2020-10-10] MEDS: carvediloL 6.25 MG TABLET PO SCH ×2 (09:17→22:23)
[2020-10-10] MEDS: ASPIRIN CHEW 81 MG TABLET PO SCH (09:17)
[2020-10-10] MEDS: amLODIPine 5 MG TABLET PO SCH (09:18)
[2020-10-10] MEDS: PANTOPRAZOLE 40 MG TABLET PO SCH (09:18)
[2020-10-10] MEDS: QUEtiapine 25 MG TABLET PO SCH ×2 (09:18→22:23)
[2020-10-10] MEDS: MINERAL OIL/PETROLATUM OPH OINT 3.5 GM TUBE BOTH EYES SCH ×3 (09:21→22:27)
[2020-10-10] MEDS: LEVOFLOXACIN INJ 500 MG in PREMIX 1 EACH IV SCH (09:24)
[2020-10-10] MEDS: ZIPRASIDONE 20 MG/1 ML VIAL IM PRN ×2 (13:11→18:48)
[2020-10-10] MEDS: HYDROmorphone 2 MG/1 ML VIAL IV PRN (17:41)
[2020-10-10] MEDS: hydrALAZINE 20 MG/1 ML VIAL IV PRN (17:42)
[2020-10-10] MEDS: traZODone 50 MG TABLET PO SCH (22:23)
[2020-10-11] MEDS: INSULIN REGULAR 100 UNIT/ML SUBCUT SCH ×4 (00:42→18:42)
[2020-10-11] MEDS: ENOXAPARIN 40 MG/0.4 ML SYRINGE SUBCUT SCH (00:42)
[2020-10-11 06:24] LABS: Basophils % 0.3 % (0.0-0.8); Eosinophils % 0.3 % (0.00-10.9); Hematocrit 30.1 VOL% (42.0-52.0); Hemoglobin 10.2 GM/DL (14.0-18.0); Immature Granulocytes % 0.7 %; Immature Granulocytes Absolute 0.07 #; Lymphocytes # 1.1 10*3/uL (1.4-4.0); Lymphocytes % 11.1 % (21.2-54.2); Mean Corpuscular HGB Conc 33.9 GM/DL (32-36); Mean Corpuscular Volume 84.3 FL (87-102); Mean Platelet Volume 10.4 FL (9.6-12.0); Monocytes % 6.9 % (1.7-12.7); Neutrophils % 80.7 % (38.7-73.9); Platelet Count 296 T/CUMM (130-400); Red Blood Count 3.57 MC/CUMM (3.8-5.5); Red Cell Distribution Width 11.9 % (9.3-17.3); White Blood Count 9.5 T/CUMM (4-12)
[2020-10-11 06:52] LABS: Calcium 8.4 MG/DL (8.5-10.1); Osmolality,Calculated 280.8 MOS/KG (273-304); Potassium 3.6 MMOL/L (3.5-5.1)
[2020-10-11] MEDS: PANTOPRAZOLE 40 MG TABLET PO SCH (09:22)
[2020-10-11] MEDS: carvediloL 6.25 MG TABLET PO SCH ×2 (09:22→22:27)
[2020-10-11] MEDS: ASPIRIN CHEW 81 MG TABLET PO SCH (09:22)
[2020-10-11] MEDS: amLODIPine 5 MG TABLET PO SCH (09:22)
[2020-10-11] MEDS: MINERAL OIL/PETROLATUM OPH OINT 3.5 GM TUBE BOTH EYES SCH ×3 (09:23→22:28)
[2020-10-11] MEDS: QUEtiapine 25 MG TABLET PO SCH ×3 (09:23→22:27)
[2020-10-11] MEDS: LEVOFLOXACIN INJ 500 MG in PREMIX 1 EACH IV SCH (09:27)
[2020-10-11] MEDS: ZIPRASIDONE 20 MG/1 ML VIAL IM PRN ×2 (10:04→15:47)
[2020-10-11] MEDS: HYDROmorphone 2 MG/1 ML VIAL IV PRN ×2 (13:05→22:53)
[2020-10-11] MEDS: traZODone 50 MG TABLET PO SCH (22:27)
[2020-10-12] MEDS: ENOXAPARIN 40 MG/0.4 ML SYRINGE SUBCUT SCH (00:28)
[2020-10-12] MEDS: INSULIN REGULAR 100 UNIT/ML SUBCUT SCH ×4 (01:16→18:27)
[2020-10-12] MEDS: HYDROmorphone 2 MG/1 ML VIAL IV PRN ×2 (02:02→14:52)
[2020-10-12] MEDS: ZIPRASIDONE 20 MG/1 ML VIAL IM PRN (04:50)
[2020-10-12 06:10] LABS: Basophils % 0.4 % (0.0-0.8); Eosinophils % 0.4 % (0.00-10.9); Hematocrit 30.6 VOL% (42.0-52.0); Immature Granulocytes % 0.6 %; Immature Granulocytes Absolute 0.05 #; Lymphocytes # 1.5 10*3/uL (1.4-4.0); Lymphocytes % 18.6 % (21.2-54.2); Mean Corpuscular HGB Conc 32.7 GM/DL (32-36); Mean Corpuscular Volume 86.9 FL (87-102); Mean Platelet Volume 10.8 FL (9.6-12.0); Monocytes % 11.3 % (1.7-12.7); Neutrophils % 68.7 % (38.7-73.9); Platelet Count 303 T/CUMM (130-400); Red Blood Count 3.52 MC/CUMM (3.8-5.5); Red Cell Distribution Width 11.9 % (9.3-17.3); White Blood Count 7.9 T/CUMM (4-12)
[2020-10-12 06:26] LABS: Calcium 8.5 MG/DL (8.5-10.1); Osmolality,Calculated 286.8 MOS/KG (273-304); Potassium 3.5 MMOL/L (3.5-5.1)
[2020-10-12] MEDS: LEVOFLOXACIN INJ 500 MG in PREMIX 1 EACH IV SCH (10:15)
[2020-10-12] MEDS: carvediloL 6.25 MG TABLET PO SCH ×2 (12:49→22:09)
[2020-10-12] MEDS: ASPIRIN CHEW 81 MG TABLET PO SCH (12:49)
[2020-10-12] MEDS: MINERAL OIL/PETROLATUM OPH OINT 3.5 GM TUBE BOTH EYES SCH ×3 (12:49→22:11)
[2020-10-12] MEDS: amLODIPine 5 MG TABLET PO SCH (12:49)
[2020-10-12] MEDS: PANTOPRAZOLE 40 MG TABLET PO SCH (12:49)
[2020-10-12] MEDS: HALOPERIDOL 5 MG TABLET PO SCH (22:07)
[2020-10-12] MEDS: traZODone 50 MG TABLET PO SCH (22:07)
[2020-10-13] MEDS: INSULIN REGULAR 100 UNIT/ML SUBCUT SCH ×5 (00:31→23:26)
[2020-10-13 06:38] LABS: Calcium 8.1 MG/DL (8.5-10.1); Osmolality,Calculated 293.7 MOS/KG (273-304); Potassium 3.7 MMOL/L (3.5-5.1)
[2020-10-13] MEDS: QUEtiapine 25 MG TABLET PO SCH (07:24)
[2020-10-13] MEDS: ASPIRIN CHEW 81 MG TABLET PO SCH (08:48)
[2020-10-13] MEDS: amLODIPine 5 MG TABLET PO SCH (08:48)
[2020-10-13] MEDS: HALOPERIDOL 5 MG TABLET PO SCH ×2 (08:48→20:40)
[2020-10-13] MEDS: LEVOFLOXACIN INJ 500 MG in PREMIX 1 EACH IV SCH (08:49)
[2020-10-13] MEDS: carvediloL 6.25 MG TABLET PO SCH ×2 (08:49→21:12)
[2020-10-13] MEDS: PANTOPRAZOLE 40 MG TABLET PO SCH (08:49)
[2020-10-13] MEDS: MINERAL OIL/PETROLATUM OPH OINT 3.5 GM TUBE BOTH EYES SCH ×3 (08:53→21:14)
[2020-10-13] MEDS: traZODone 50 MG TABLET PO SCH (20:40)
[2020-10-14] MEDS: ENOXAPARIN 40 MG/0.4 ML SYRINGE SUBCUT SCH (00:56)
[2020-10-14] MEDS: INSULIN REGULAR 100 UNIT/ML SUBCUT SCH ×4 (05:32→23:49)
[2020-10-14 06:08] LABS: Osmolality,Calculated 291.8 MOS/KG (273-304); Potassium 3.6 MMOL/L (3.5-5.1)
[2020-10-14] MEDS: ASPIRIN CHEW 81 MG TABLET PO SCH (09:22)
[2020-10-14] MEDS: HALOPERIDOL 5 MG TABLET PO SCH ×2 (09:22→20:03)
[2020-10-14] MEDS: carvediloL 6.25 MG TABLET PO SCH ×2 (09:22→20:03)
[2020-10-14] MEDS: PANTOPRAZOLE 40 MG TABLET PO SCH (09:22)
[2020-10-14] MEDS: amLODIPine 5 MG TABLET PO SCH (09:22)
[2020-10-14] MEDS: LEVOFLOXACIN INJ 500 MG in PREMIX 1 EACH IV SCH (09:23)
[2020-10-14] MEDS: MINERAL OIL/PETROLATUM OPH OINT 3.5 GM TUBE BOTH EYES SCH ×3 (11:34→20:05)
[2020-10-14] MEDS: traZODone 50 MG TABLET PO SCH (20:03)
[2020-10-15 03:37] LABS: Basophils % 0.4 % (0.0-0.8); Eosinophils # 0.1 10*3/uL (0.0-0.87); Eosinophils % 1.2 % (0.00-10.9); Hematocrit 26.7 VOL% (42.0-52.0); Hemoglobin 9.1 GM/DL (14.0-18.0); Immature Granulocytes % 0.4 %; Immature Granulocytes Absolute 0.03 #; Lymphocytes # 1.6 10*3/uL (1.4-4.0); Lymphocytes % 19.9 % (21.2-54.2); Mean Corpuscular HGB Conc 34.1 GM/DL (32-36); Mean Corpuscular Volume 85.6 FL (87-102); Mean Platelet Volume 10.2 FL (9.6-12.0); Monocytes % 12.1 % (1.7-12.7); Platelet Count 299 T/CUMM (130-400); Red Blood Count 3.12 MC/CUMM (3.8-5.5); Red Cell Distribution Width 12.2 % (9.3-17.3); White Blood Count 7.8 T/CUMM (4-12)
[2020-10-15 04:05] LABS: Calcium 8.3 MG/DL (8.5-10.1); Osmolality,Calculated 287.7 MOS/KG (273-304); Potassium 3.5 MMOL/L (3.5-5.1)
[2020-10-15] MEDS: INSULIN REGULAR 100 UNIT/ML SUBCUT SCH ×3 (05:41→17:45)
[2020-10-15] MEDS ORDERED: fentaNYL 100 MCG/2 ML VIAL IV ONE (07:11)
[2020-10-15] MEDS ORDERED: MIDAZOLAM 2 MG/2 ML VIAL IV ONE (07:11)
[2020-10-15] MEDS ORDERED: ceFAZolin 1,000 MG in SYRINGE 1 EACH IV ONE ×2 (07:11→07:30)
[2020-10-15] MEDS ORDERED: DIAZEPAM 5 MG TABLET PO ONE (07:11)
[2020-10-15] MEDS ORDERED: MAGNESIUM HYDROXIDE SUSP 30 ML UDCUP PO ONE (10:00)
[2020-10-15] MEDS: carvediloL 6.25 MG TABLET PO SCH ×2 (10:01→19:30)
[2020-10-15] MEDS: amLODIPine 5 MG TABLET PO SCH (10:01)
[2020-10-15] MEDS: LEVOFLOXACIN INJ 500 MG in PREMIX 1 EACH IV SCH (10:02)
[2020-10-15] MEDS: MINERAL OIL/PETROLATUM OPH OINT 3.5 GM TUBE BOTH EYES SCH ×3 (10:08→19:30)
[2020-10-15] MEDS ORDERED: HEPARIN/NACL 0.9% 2 UNITS/ML 2,000 ML IV ONE (10:45)
[2020-10-15] MEDS: SODIUM CHLORIDE 0.45% 1,000 ML IV SCH (11:28)
[2020-10-15] MEDS ORDERED: DEXTROSE 50% 25 GM/50 ML VIAL IV PRN (13:33)
[2020-10-15] MEDS ORDERED: GLUCAGON 1 MG VIAL IM PRN (13:33)
[2020-10-15] MEDS: ASPIRIN CHEW 81 MG TABLET PO SCH (15:47)
[2020-10-15] MEDS: HALOPERIDOL 5 MG TABLET PO SCH ×2 (15:47→19:30)
[2020-10-15] MEDS: PANTOPRAZOLE 40 MG TABLET PO SCH (15:48)
[2020-10-15] MEDS: traZODone 50 MG TABLET PO SCH (19:30)
[2020-10-16] MEDS: INSULIN REGULAR 100 UNIT/ML SUBCUT SCH ×5 (00:38→19:06)
[2020-10-16] MEDS: SODIUM CHLORIDE 0.45% 1,000 ML IV SCH (07:30)
[2020-10-16] MEDS: HALOPERIDOL 5 MG TABLET PO SCH ×2 (09:13→21:26)
[2020-10-16] MEDS: ASPIRIN CHEW 81 MG TABLET PO SCH (09:13)
[2020-10-16] MEDS: carvediloL 6.25 MG TABLET PO SCH ×2 (09:13→21:26)
[2020-10-16] MEDS: PANTOPRAZOLE 40 MG TABLET PO SCH (09:14)
[2020-10-16] MEDS: amLODIPine 5 MG TABLET PO SCH (09:14)
[2020-10-16] MEDS: MINERAL OIL/PETROLATUM OPH OINT 3.5 GM TUBE BOTH EYES SCH (09:15)
[2020-10-16] MEDS: LEVOFLOXACIN INJ 500 MG in PREMIX 1 EACH IV SCH (09:16)
[2020-10-16] MEDS: ZIPRASIDONE 20 MG/1 ML VIAL IM PRN (13:14)
[2020-10-16] MEDS: INSULIN NPH 100 UNIT/ML SUBCUT SCH (18:46)
[2020-10-16] MEDS: traZODone 50 MG TABLET PO SCH (21:26)
[2020-10-17] MEDS: INSULIN REGULAR 100 UNIT/ML SUBCUT SCH ×4 (00:47→17:21)
[2020-10-17] MEDS: ZIPRASIDONE 20 MG/1 ML VIAL IM PRN ×2 (01:27→11:24)
[2020-10-17 05:20] LABS: Basophils % 0.4 % (0.0-0.8); Eosinophils % 0.4 % (0.00-10.9); Hematocrit 27.9 VOL% (42.0-52.0); Hemoglobin 9.5 GM/DL (14.0-18.0); Immature Granulocytes % 0.4 %; Immature Granulocytes Absolute 0.03 #; Lymphocytes # 1.2 10*3/uL (1.4-4.0); Lymphocytes % 15.1 % (21.2-54.2); Mean Corpuscular HGB Conc 34.1 GM/DL (32-36); Mean Corpuscular Volume 84.5 FL (87-102); Mean Platelet Volume 10.3 FL (9.6-12.0); Monocytes % 8.4 % (1.7-12.7); Neutrophils % 75.3 % (38.7-73.9); Platelet Count 339 T/CUMM (130-400); Red Cell Distribution Width 12.3 % (9.3-17.3); White Blood Count 7.6 T/CUMM (4-12)
[2020-10-17 05:42] LABS: Calcium 8.8 MG/DL (8.5-10.1); Osmolality,Calculated 295.5 MOS/KG (273-304); Potassium 3.8 MMOL/L (3.5-5.1)
[2020-10-17] MEDS ORDERED: LACTATED RINGERS 1,000 ML IV SCH (07:00)
[2020-10-17] MEDS ORDERED: LIDOCAINE 1% 20 ML VIAL ONE (07:37)
[2020-10-17] MEDS: INSULIN NPH 100 UNIT/ML SUBCUT SCH ×3 (07:47→17:21)
[2020-10-17] MEDS ORDERED: DEXTROSE 50% 25 GM/50 ML VIAL IV PRN (08:46)
[2020-10-17] MEDS ORDERED: GLUCAGON 1 MG VIAL IM PRN (08:46)
[2020-10-17] MEDS: PANTOPRAZOLE 40 MG TABLET PO SCH (08:58)
[2020-10-17] MEDS: carvediloL 6.25 MG TABLET PO SCH ×2 (08:58→20:51)
[2020-10-17] MEDS: ASPIRIN CHEW 81 MG TABLET PO SCH (08:58)
[2020-10-17] MEDS: LEVOFLOXACIN INJ 500 MG in PREMIX 1 EACH IV SCH (08:58)
[2020-10-17] MEDS: amLODIPine 5 MG TABLET PO SCH (08:58)
[2020-10-17] MEDS: HALOPERIDOL 5 MG TABLET PO SCH ×2 (08:58→20:52)
[2020-10-17] MEDS ORDERED: HALOPERIDOL 5 MG TABLET PO ONE (13:29)
[2020-10-17] MEDS: SODIUM CHLORIDE 0.45% 1,000 ML IV SCH (17:20)
[2020-10-17] MEDS: traZODone 50 MG TABLET PO SCH (20:51)
[2020-10-18] MEDS: INSULIN REGULAR 100 UNIT/ML SUBCUT SCH ×5 (01:53→23:47)
[2020-10-18 04:28] LABS: Basophils % 0.5 % (0.0-0.8); Eosinophils % 0.3 % (0.00-10.9); Hematocrit 30.5 VOL% (42.0-52.0); Hemoglobin 10.5 GM/DL (14.0-18.0); Immature Granulocytes % 0.1 %; Immature Granulocytes Absolute 0.01 #; Lymphocytes # 1.4 10*3/uL (1.4-4.0); Mean Corpuscular HGB Conc 34.4 GM/DL (32-36); Mean Platelet Volume 9.8 FL (9.6-12.0); Monocytes % 9.7 % (1.7-12.7); Neutrophils % 72.4 % (38.7-73.9); Platelet Count 349 T/CUMM (130-400); Red Blood Count 3.63 MC/CUMM (3.8-5.5); Red Cell Distribution Width 12.5 % (9.3-17.3); White Blood Count 7.9 T/CUMM (4-12)
[2020-10-18 05:20] LABS: Calcium 9.5 MG/DL (8.5-10.1); Osmolality,Calculated 287.7 MOS/KG (273-304); Potassium 3.5 MMOL/L (3.5-5.1)
[2020-10-18] MEDS: INSULIN NPH 100 UNIT/ML SUBCUT SCH ×2 (08:42→17:41)
[2020-10-18] MEDS: ASPIRIN CHEW 81 MG TABLET PO SCH (08:43)
[2020-10-18] MEDS: carvediloL 6.25 MG TABLET PO SCH ×2 (08:43→20:34)
[2020-10-18] MEDS: LEVOFLOXACIN INJ 500 MG in PREMIX 1 EACH IV SCH (08:43)
[2020-10-18] MEDS: SODIUM CHLORIDE 0.45% 1,000 ML IV SCH (08:43)
[2020-10-18] MEDS: PANTOPRAZOLE 40 MG TABLET PO SCH (08:44)
[2020-10-18] MEDS: amLODIPine 5 MG TABLET PO SCH (08:44)
[2020-10-18] MEDS: HALOPERIDOL 5 MG TABLET PO SCH ×2 (08:44→20:34)
[2020-10-18] MEDS: ZIPRASIDONE 20 MG/1 ML VIAL IM PRN (14:09)
[2020-10-18] MEDS: traZODone 50 MG TABLET PO SCH (20:34)
[2020-10-18] MEDS: ENOXAPARIN 40 MG/0.4 ML SYRINGE SUBCUT SCH (23:50)
[2020-10-19] MEDS: INSULIN REGULAR 100 UNIT/ML SUBCUT SCH ×3 (05:55→18:02)
[2020-10-19] MEDS: SODIUM CHLORIDE 0.45% 1,000 ML IV SCH (07:30)
[2020-10-19] MEDS: INSULIN NPH 100 UNIT/ML SUBCUT SCH (07:30)
[2020-10-19] MEDS: ASPIRIN CHEW 81 MG TABLET PO SCH (09:33)
[2020-10-19] MEDS: carvediloL 6.25 MG TABLET PO SCH ×2 (09:34→21:30)
[2020-10-19] MEDS: PANTOPRAZOLE 40 MG TABLET PO SCH (09:34)
[2020-10-19] MEDS: HALOPERIDOL 5 MG TABLET PO SCH ×2 (09:34→21:30)
[2020-10-19] MEDS: amLODIPine 5 MG TABLET PO SCH (09:34)
[2020-10-19] MEDS: LEVOFLOXACIN INJ 500 MG in PREMIX 1 EACH IV SCH (09:35)
[2020-10-19] MEDS ORDERED: INSULIN GLARGINE 100 UNIT/ML SUBCUT SCH (21:00)
[2020-10-19] MEDS: traZODone 50 MG TABLET PO SCH (21:30)
[2020-10-20] MEDS: ENOXAPARIN 40 MG/0.4 ML SYRINGE SUBCUT SCH (00:09)
[2020-10-20] MEDS: INSULIN REGULAR 100 UNIT/ML SUBCUT SCH ×4 (00:17→18:03)
[2020-10-20] MEDS: ZIPRASIDONE 20 MG/1 ML VIAL IM PRN (01:31)
[2020-10-20 06:30] LABS: Calcium 8.4 MG/DL (8.5-10.1); Osmolality,Calculated 294.1 MOS/KG (273-304); Potassium 3.9 MMOL/L (3.5-5.1)
[2020-10-20] MEDS: HYDROmorphone 2 MG/1 ML VIAL IV PRN (06:30)
[2020-10-20] MEDS: SODIUM CHLORIDE 0.45% 1,000 ML IV SCH (07:30)
[2020-10-20] MEDS: carvediloL 6.25 MG TABLET PO SCH ×2 (09:00→21:52)
[2020-10-20] MEDS: ASPIRIN CHEW 81 MG TABLET PO SCH (09:00)
[2020-10-20] MEDS: HALOPERIDOL 5 MG TABLET PO SCH ×2 (09:00→21:52)
[2020-10-20] MEDS: amLODIPine 5 MG TABLET PO SCH (09:01)
[2020-10-20] MEDS: PANTOPRAZOLE 40 MG TABLET PO SCH (09:01)
[2020-10-20] MEDS: LEVOFLOXACIN INJ 500 MG in PREMIX 1 EACH IV SCH (09:03)
[2020-10-20] MEDS: INSULIN GLARGINE 100 UNIT/ML SUBCUT SCH ×2 (10:00→21:52)
[2020-10-20] MEDS: traZODone 50 MG TABLET PO SCH (21:52)
[2020-10-21] MEDS: ENOXAPARIN 40 MG/0.4 ML SYRINGE SUBCUT SCH (01:06)
[2020-10-21] MEDS: INSULIN REGULAR 100 UNIT/ML SUBCUT SCH ×4 (01:06→18:37)
[2020-10-21] MEDS: SODIUM CHLORIDE 0.45% 1,000 ML IV SCH (07:30)
[2020-10-21] MEDS: ASPIRIN CHEW 81 MG TABLET PO SCH (09:06)
[2020-10-21] MEDS: carvediloL 6.25 MG TABLET PO SCH ×2 (09:07→21:05)
[2020-10-21] MEDS: HALOPERIDOL 5 MG TABLET PO SCH ×2 (09:07→21:05)
[2020-10-21] MEDS: INSULIN GLARGINE 100 UNIT/ML SUBCUT SCH ×2 (09:08→21:05)
[2020-10-21] MEDS: amLODIPine 5 MG TABLET PO SCH (09:09)
[2020-10-21] MEDS: PANTOPRAZOLE 40 MG TABLET PO SCH (09:09)
[2020-10-21] MEDS: LEVOFLOXACIN INJ 500 MG in PREMIX 1 EACH IV SCH (09:10)
[2020-10-21] MEDS: NICOTINE 21 MG/24 HR PATCH TRANSDERM SCH (18:26)
[2020-10-21] MEDS: traZODone 50 MG TABLET PO SCH (21:05)
[2020-10-22] MEDS: ENOXAPARIN 40 MG/0.4 ML SYRINGE SUBCUT SCH (00:04)
[2020-10-22] MEDS: INSULIN REGULAR 100 UNIT/ML SUBCUT SCH ×4 (00:04→17:05)
[2020-10-22 06:23] LABS: Basophils % 0.5 % (0.0-0.8); Eosinophils # 0.1 10*3/uL (0.0-0.87); Eosinophils % 1.3 % (0.00-10.9); Hematocrit 27.3 VOL% (42.0-52.0); Hemoglobin 8.9 GM/DL (14.0-18.0); Immature Granulocytes % 0.5 %; Immature Granulocytes Absolute 0.03 #; Lymphocytes # 1.1 10*3/uL (1.4-4.0); Mean Corpuscular HGB Conc 32.6 GM/DL (32-36); Mean Corpuscular Volume 87.2 FL (87-102); Mean Platelet Volume 9.7 FL (9.6-12.0); Monocytes % 8.6 % (1.7-12.7); Neutrophils % 71.1 % (38.7-73.9); Platelet Count 295 T/CUMM (130-400); Red Blood Count 3.13 MC/CUMM (3.8-5.5); Red Cell Distribution Width 12.8 % (9.3-17.3); White Blood Count 6.2 T/CUMM (4-12)
[2020-10-22 06:33] LABS: Calcium 8.7 MG/DL (8.5-10.1); Osmolality,Calculated 284.5 MOS/KG (273-304)
[2020-10-22] MEDS: ASPIRIN CHEW 81 MG TABLET PO SCH (09:45)
[2020-10-22] MEDS: carvediloL 6.25 MG TABLET PO SCH ×2 (09:45→20:58)
[2020-10-22] MEDS: HALOPERIDOL 5 MG TABLET PO SCH ×2 (09:46→20:58)
[2020-10-22] MEDS: INSULIN GLARGINE 100 UNIT/ML SUBCUT SCH ×2 (09:46→21:02)
[2020-10-22] MEDS: amLODIPine 5 MG TABLET PO SCH (09:47)
[2020-10-22] MEDS: PANTOPRAZOLE 40 MG TABLET PO SCH (09:48)
[2020-10-22] MEDS: NICOTINE 21 MG/24 HR PATCH TRANSDERM SCH (09:52)
[2020-10-22] MEDS: SODIUM CHLORIDE 0.45% 1,000 ML IV SCH (11:24)
[2020-10-22] MEDS ORDERED: NICOTINE 21 MG/24 HR PATCH TRANSDERM SCH (16:58)
[2020-10-22] MEDS: traZODone 50 MG TABLET PO SCH (20:59)
[2020-10-23] MEDS: ENOXAPARIN 40 MG/0.4 ML SYRINGE SUBCUT SCH (00:28)
[2020-10-23] MEDS: INSULIN REGULAR 100 UNIT/ML SUBCUT SCH ×3 (00:29→14:10)
[2020-10-23] MEDS: ASPIRIN CHEW 81 MG TABLET PO SCH (09:23)
[2020-10-23] MEDS: amLODIPine 5 MG TABLET PO SCH (09:24)
[2020-10-23] MEDS: carvediloL 6.25 MG TABLET PO SCH (09:24)
[2020-10-23] MEDS: HALOPERIDOL 5 MG TABLET PO SCH (09:24)
[2020-10-23] MEDS: NICOTINE 21 MG/24 HR PATCH TRANSDERM SCH (09:30)
[2020-10-23] MEDS: INSULIN GLARGINE 100 UNIT/ML SUBCUT SCH (09:30)
[2020-10-23] MEDS ORDERED: COLLAGENASE OINT 30 GM TUBE TOP SCH (11:30)
[2020-10-23 12:58] VITALS: BP 135/76
[2020-10-23] MEDS: PANTOPRAZOLE 40 MG TABLET PO SCH (14:10)
== END 2020-10-23 14:45 | disposition home or self-care (01) | DRG 305 ==
LOC: N.ED 17:55 → N.EDINP 21:14 → SUATTDRO 21:14 → N.5E 22:51 → N.ICU 09-29 12:10 → N.3E 10-07 16:04
PROVIDERS: ADMIT Emergency Medicine; ATTEND Internal Medicine

== ENCOUNTER 2020-11-20 06:02 | Inpatient (IN) ==
[2020-11-15 12:42] LABS: Basophils % 0.1 % (0.0-0.8); Eosinophils % 0.2 % (0.00-10.9); Hematocrit 29.2 VOL% (42.0-52.0); Hemoglobin 9.6 GM/DL (14.0-18.0); Immature Granulocytes % 0.5 %; Immature Granulocytes Absolute 0.05 #; Lymphocytes % 10.8 % (21.2-54.2); Mean Corpuscular HGB Conc 32.9 GM/DL (32-36); Mean Corpuscular Volume 85.1 FL (87-102); Mean Platelet Volume 10.4 FL (9.6-12.0); Neutrophils % 81.4 % (38.7-73.9); Platelet Count 328 T/CUMM (130-400); Red Blood Count 3.43 MC/CUMM (3.8-5.5); Red Cell Distribution Width 12.3 % (9.3-17.3); White Blood Count 9.3 T/CUMM (4-12)
[2020-11-15 12:49] LABS: Calcium 8.8 MG/DL (8.5-10.1); Osmolality,Calculated 293.5 MOS/KG (273-304); Potassium 4.4 MMOL/L (3.5-5.1)
[2020-11-20] MEDS ORDERED: ceFAZolin 1,000 MG in SYRINGE 1 EACH IV ONE (06:30)
[2020-11-20] MEDS ORDERED: FUROSEMIDE 20 MG/2 ML VIAL ONE (06:55)
[2020-11-20] MEDS ORDERED: LACTATED RINGERS 500 ML IV ONE (06:59)
[2020-11-20] MEDS ORDERED: LACTATED RINGERS 1,000 ML IV SCH (07:00)
[2020-11-20 07:32] LABS: Barbiturates Screen,Urine Negative (Negative); Benzodiazepines Screen,Urine Negative (Negative); Cannabinoid Screen,Urine Negative (Negative); Opiate Screen,Urine Negative (Negative); Phencyclidine Screen,Urine Negative (Negative)
[2020-11-20] MEDS ORDERED: propofoL 200 MG/20 ML VIAL IV ONE (07:54)
[2020-11-20] MEDS ORDERED: SEVOFLURANE 1 UNIT/15 MINUTE INH ONE ×4 (07:54→08:56)
[2020-11-20] MEDS ORDERED: LIDOCAINE 2% 5 ML VIAL ONE (07:54)
[2020-11-20] MEDS ORDERED: fentaNYL 100 MCG/2 ML VIAL ONE (07:54)
[2020-11-20] MEDS ORDERED: PHENYLEPHRINE 1 MG/10 ML SYRINGE IV ONE (08:15)
[2020-11-20] MEDS ORDERED: ONDANSETRON 4 MG/2 ML VIAL IV PRN ×2 (08:56→09:18)
[2020-11-20] MEDS ORDERED: PROMETHAZINE INJ 25 MG in SODIUM CHLORIDE 0.9% 50 ML IV PRN (09:18)
[2020-11-20] MEDS ORDERED: diphenhydrAMINE 50 MG/1 ML VIAL IV PRN (09:18)
[2020-11-20] MEDS ORDERED: HYDROmorphone 2 MG/1 ML VIAL IV PRN (09:18)
[2020-11-20] MEDS ORDERED: MEPERIDINE 25 MG/1 ML VIAL IV PRN (09:18)
[2020-11-20] MEDS ORDERED: PIPERACILLIN/TAZOBACTAM 3,375 MG VIAL IV ONE (09:22)
[2020-11-20] MEDS: HYDROmorphone 2 MG/1 ML VIAL IV PRN ×6 (09:25→22:56)
[2020-11-20] MEDS: PIPERACILLIN/TAZOBACTAM 3,375 MG in SODIUM CHLORIDE 0.9% 100 ML IV SCH ×2 (09:30→16:45)
[2020-11-20] MEDS ORDERED: hydrALAZINE 20 MG/1 ML VIAL ONE (09:39)
[2020-11-20] MEDS ORDERED: hydrALAZINE 20 MG/1 ML VIAL IV ONE (09:43)
[2020-11-20] MEDS: PANTOPRAZOLE 40 MG TABLET PO SCH (09:44)
[2020-11-20] MEDS ORDERED: DEXTROSE 50% 25 GM/50 ML VIAL IV PRN ×2 (16:24→18:33)
[2020-11-20] MEDS ORDERED: GLUCAGON 1 MG VIAL IM PRN (16:24)
[2020-11-20] MEDS: INSULIN REGULAR 100 UNIT/ML SUBCUT SCH ×2 (16:45→21:46)
[2020-11-20] MEDS: ENOXAPARIN 40 MG/0.4 ML SYRINGE SUBCUT SCH (21:46)
[2020-11-21] MEDS: PIPERACILLIN/TAZOBACTAM 3,375 MG in SODIUM CHLORIDE 0.9% 100 ML IV SCH ×2 (00:37→16:53)
[2020-11-21] MEDS: HYDROmorphone 2 MG/1 ML VIAL IV PRN (04:57)
[2020-11-21] MEDS: ACETAMINOPHEN 325 MG TABLET PO PRN ×3 (04:58→20:06)
[2020-11-21 06:06] LABS: Basophils % 0.2 % (0.0-0.8); Eosinophils % 0.1 % (0.00-10.9); Hematocrit 26.9 VOL% (42.0-52.0); Hemoglobin 8.7 GM/DL (14.0-18.0); Immature Granulocytes % 0.9 %; Immature Granulocytes Absolute 0.11 #; Lymphocytes # 1.4 10*3/uL (1.4-4.0); Mean Corpuscular HGB Conc 32.3 GM/DL (32-36); Mean Corpuscular Volume 84.9 FL (87-102); Mean Platelet Volume 9.4 FL (9.6-12.0); Monocytes % 10.5 % (1.7-12.7); Neutrophils % 77.3 % (38.7-73.9); Platelet Count 378 T/CUMM (130-400); Red Blood Count 3.17 MC/CUMM (3.8-5.5); Red Cell Distribution Width 11.9 % (9.3-17.3); White Blood Count 12.2 T/CUMM (4-12)
[2020-11-21 06:39] LABS: Calcium 8.6 MG/DL (8.5-10.1); Osmolality,Calculated 284.7 MOS/KG (273-304); Potassium 3.7 MMOL/L (3.5-5.1)
[2020-11-21] MEDS: PANTOPRAZOLE 40 MG TABLET PO SCH (08:38)
[2020-11-21] MEDS: INSULIN REGULAR 100 UNIT/ML SUBCUT SCH ×4 (08:38→21:07)
[2020-11-21] MEDS: ENOXAPARIN 40 MG/0.4 ML SYRINGE SUBCUT SCH (21:06)
[2020-11-22] MEDS: PIPERACILLIN/TAZOBACTAM 3,375 MG in SODIUM CHLORIDE 0.9% 100 ML IV SCH ×3 (00:42→16:24)
[2020-11-22] MEDS: INSULIN REGULAR 100 UNIT/ML SUBCUT SCH ×4 (08:22→22:12)
[2020-11-22] MEDS: PANTOPRAZOLE 40 MG TABLET PO SCH (08:23)
[2020-11-22 08:26] LABS: Basophils % 0.1 % (0.0-0.8); Eosinophils % 0.2 % (0.00-10.9); Hematocrit 26.6 VOL% (42.0-52.0); Hemoglobin 8.8 GM/DL (14.0-18.0); Immature Granulocytes % 0.6 %; Immature Granulocytes Absolute 0.08 #; Lymphocytes # 1.1 10*3/uL (1.4-4.0); Lymphocytes % 8.7 % (21.2-54.2); Mean Corpuscular HGB Conc 33.1 GM/DL (32-36); Mean Corpuscular Volume 83.6 FL (87-102); Monocytes % 7.3 % (1.7-12.7); Neutrophils % 83.1 % (38.7-73.9); Platelet Count 370 T/CUMM (130-400); Red Blood Count 3.18 MC/CUMM (3.8-5.5); Red Cell Distribution Width 11.9 % (9.3-17.3); White Blood Count 12.7 T/CUMM (4-12)
[2020-11-22] MEDS ORDERED: carvediloL 6.25 MG TABLET PO SCH (12:00)
[2020-11-22] MEDS: INSULIN ASPART PROTAMINE/ASPART 70/30 100 UNIT/ML SUBCUT SCH (18:08)
[2020-11-22] MEDS: ENOXAPARIN 40 MG/0.4 ML SYRINGE SUBCUT SCH (22:12)
[2020-11-22] MEDS: carvediloL 6.25 MG TABLET PO SCH (22:13)
[2020-11-22] MEDS: HALOPERIDOL 5 MG TABLET PO SCH (22:13)
[2020-11-23] MEDS: PIPERACILLIN/TAZOBACTAM 3,375 MG in SODIUM CHLORIDE 0.9% 100 ML IV SCH ×3 (02:06→16:12)
[2020-11-23 06:01] LABS: Basophils % 0.2 % (0.0-0.8); Eosinophils # 0.1 10*3/uL (0.0-0.87); Eosinophils % 0.5 % (0.00-10.9); Hematocrit 25.3 VOL% (42.0-52.0); Hemoglobin 8.4 GM/DL (14.0-18.0); Immature Granulocytes % 1.9 %; Immature Granulocytes Absolute 0.22 #; Lymphocytes # 1.5 10*3/uL (1.4-4.0); Lymphocytes % 12.7 % (21.2-54.2); Mean Corpuscular HGB Conc 33.2 GM/DL (32-36); Mean Corpuscular Volume 84.3 FL (87-102); Mean Platelet Volume 9.2 FL (9.6-12.0); Monocytes % 8.9 % (1.7-12.7); Neutrophils % 75.8 % (38.7-73.9); Platelet Count 363 T/CUMM (130-400); White Blood Count 11.6 T/CUMM (4-12)
[2020-11-23 06:10] LABS: Calcium 8.7 MG/DL (8.5-10.1); Osmolality,Calculated 283.7 MOS/KG (273-304); Potassium 3.8 MMOL/L (3.5-5.1)
[2020-11-23] MEDS: ASPIRIN CHEW 81 MG TABLET PO SCH (08:29)
[2020-11-23] MEDS: carvediloL 6.25 MG TABLET PO SCH ×2 (08:29→20:20)
[2020-11-23] MEDS: HALOPERIDOL 5 MG TABLET PO SCH ×2 (08:29→20:20)
[2020-11-23] MEDS: PANTOPRAZOLE 40 MG TABLET PO SCH (08:29)
[2020-11-23] MEDS: INSULIN ASPART PROTAMINE/ASPART 70/30 100 UNIT/ML SUBCUT SCH ×2 (08:30→18:11)
[2020-11-23] MEDS: INSULIN REGULAR 100 UNIT/ML SUBCUT SCH ×4 (08:30→20:28)
[2020-11-23 09:27] LABS: Bilirubin,Urine Negative (Negative); Blood, Urine Small mg/dL (Negative); Glucose,Urine (UA) 50 mg/dL (Negative); Ketones,Urine Negative (Negative); Mucus,Urine Occasional /LPF (Occasional); Nitrite,Urine Negative (Negative); Protein,Urine 100 MG/DL; RBC,Urine 8 /HPF (0-4); Urine Appearance CLEAR (Clear); Urine Color Straw (Yellow); Urine Urobilinogen < 2.0 EU/DL (0.2-1.0); WBC,Urine 5 /HPF (0-6)
[2020-11-23] MEDS: ENOXAPARIN 40 MG/0.4 ML SYRINGE SUBCUT SCH (20:20)
[2020-11-23] MEDS: MAGNESIUM HYDROXIDE SUSP 30 ML UDCUP PO PRN (23:23)
[2020-11-24] MEDS: PIPERACILLIN/TAZOBACTAM 3,375 MG in SODIUM CHLORIDE 0.9% 100 ML IV SCH ×3 (01:15→16:29)
[2020-11-24] MEDS: INSULIN REGULAR 100 UNIT/ML SUBCUT SCH ×4 (07:39→20:26)
[2020-11-24] MEDS: INSULIN ASPART PROTAMINE/ASPART 70/30 100 UNIT/ML SUBCUT SCH ×2 (08:13→18:10)
[2020-11-24] MEDS: HALOPERIDOL 5 MG TABLET PO SCH ×2 (08:13→20:26)
[2020-11-24] MEDS: PANTOPRAZOLE 40 MG TABLET PO SCH (08:13)
[2020-11-24] MEDS: ASPIRIN CHEW 81 MG TABLET PO SCH (08:13)
[2020-11-24] MEDS: carvediloL 6.25 MG TABLET PO SCH ×2 (08:13→20:26)
[2020-11-24] MEDS: ENOXAPARIN 40 MG/0.4 ML SYRINGE SUBCUT SCH (20:26)
[2020-11-24] MEDS: MAGNESIUM HYDROXIDE SUSP 30 ML UDCUP PO PRN (23:24)
[2020-11-25] MEDS: PIPERACILLIN/TAZOBACTAM 3,375 MG in SODIUM CHLORIDE 0.9% 100 ML IV SCH ×3 (01:30→16:23)
[2020-11-25] MEDS: carvediloL 6.25 MG TABLET PO SCH ×2 (08:07→20:25)
[2020-11-25] MEDS: ASPIRIN CHEW 81 MG TABLET PO SCH (08:07)
[2020-11-25] MEDS: INSULIN REGULAR 100 UNIT/ML SUBCUT SCH ×4 (08:07→20:15)
[2020-11-25] MEDS: HALOPERIDOL 5 MG TABLET PO SCH ×2 (08:07→20:25)
[2020-11-25] MEDS: PANTOPRAZOLE 40 MG TABLET PO SCH (08:07)
[2020-11-25] MEDS: INSULIN ASPART PROTAMINE/ASPART 70/30 100 UNIT/ML SUBCUT SCH ×2 (08:16→18:04)
[2020-11-25] MEDS: MAGNESIUM HYDROXIDE SUSP 30 ML UDCUP PO PRN (18:04)
[2020-11-25] MEDS: ENOXAPARIN 40 MG/0.4 ML SYRINGE SUBCUT SCH (20:26)
[2020-11-26] MEDS: PIPERACILLIN/TAZOBACTAM 3,375 MG in SODIUM CHLORIDE 0.9% 100 ML IV SCH (00:15)
[2020-11-26 08:01] LABS: Basophils % 0.3 % (0.0-0.8); Eosinophils # 0.1 10*3/uL (0.0-0.87); Eosinophils % 0.6 % (0.00-10.9); Hematocrit 26.4 VOL% (42.0-52.0); Hemoglobin 8.9 GM/DL (14.0-18.0); Immature Granulocytes % 0.8 %; Immature Granulocytes Absolute 0.09 #; Lymphocytes # 1.5 10*3/uL (1.4-4.0); Lymphocytes % 13.1 % (21.2-54.2); Mean Corpuscular HGB Conc 33.7 GM/DL (32-36); Mean Corpuscular Volume 83.3 FL (87-102); Mean Platelet Volume 8.9 FL (9.6-12.0); Monocytes % 7.3 % (1.7-12.7); Neutrophils % 77.9 % (38.7-73.9); Platelet Count 391 T/CUMM (130-400); Red Blood Count 3.17 MC/CUMM (3.8-5.5); White Blood Count 11.6 T/CUMM (4-12)
[2020-11-26 08:16] LABS: Osmolality,Calculated 279.8 MOS/KG (273-304); Potassium 4.3 MMOL/L (3.5-5.1)
[2020-11-26] MEDS: HALOPERIDOL 5 MG TABLET PO SCH ×2 (10:18→21:07)
[2020-11-26] MEDS: ASPIRIN CHEW 81 MG TABLET PO SCH (10:18)
[2020-11-26] MEDS: PANTOPRAZOLE 40 MG TABLET PO SCH (10:18)
[2020-11-26] MEDS: carvediloL 6.25 MG TABLET PO SCH ×2 (10:18→21:07)
[2020-11-26] MEDS: INSULIN ASPART PROTAMINE/ASPART 70/30 100 UNIT/ML SUBCUT SCH ×2 (10:20→18:31)
[2020-11-26] MEDS: INSULIN REGULAR 100 UNIT/ML SUBCUT SCH ×4 (10:20→21:09)
[2020-11-26] MEDS: MEROPENEM 500 MG in SODIUM CHLORIDE 0.9% 100 ML IV SCH ×3 (10:21→22:51)
[2020-11-26] MEDS: GABAPENTIN 300 MG CAPSULE PO SCH ×3 (17:00→21:07)
[2020-11-26] MEDS: ENOXAPARIN 40 MG/0.4 ML SYRINGE SUBCUT SCH (21:07)
[2020-11-27] MEDS: MEROPENEM 500 MG in SODIUM CHLORIDE 0.9% 100 ML IV SCH ×4 (04:54→23:12)
[2020-11-27] MEDS: INSULIN ASPART PROTAMINE/ASPART 70/30 100 UNIT/ML SUBCUT SCH ×2 (08:22→18:11)
[2020-11-27] MEDS: PANTOPRAZOLE 40 MG TABLET PO SCH (08:23)
[2020-11-27] MEDS: HALOPERIDOL 5 MG TABLET PO SCH ×2 (08:23→20:49)
[2020-11-27] MEDS: INSULIN REGULAR 100 UNIT/ML SUBCUT SCH ×4 (08:23→20:46)
[2020-11-27] MEDS: carvediloL 6.25 MG TABLET PO SCH ×2 (08:23→20:46)
[2020-11-27] MEDS: ASPIRIN CHEW 81 MG TABLET PO SCH (08:23)
[2020-11-27] MEDS: GABAPENTIN 300 MG CAPSULE PO SCH (08:24)
[2020-11-27] MEDS: GABAPENTIN 100 MG CAPSULE PO SCH ×2 (17:08→20:49)
[2020-11-27] MEDS: ENOXAPARIN 40 MG/0.4 ML SYRINGE SUBCUT SCH (20:46)
[2020-11-28] MEDS: MEROPENEM 500 MG in SODIUM CHLORIDE 0.9% 100 ML IV SCH ×4 (05:44→23:00)
[2020-11-28 07:58] LABS: Basophils % 0.1 % (0.0-0.8); Eosinophils % 0.1 % (0.00-10.9); Hemoglobin 8.6 GM/DL (14.0-18.0); Immature Granulocytes % 0.7 %; Lymphocytes # 1.3 10*3/uL (1.4-4.0); Lymphocytes % 9.8 % (21.2-54.2); Mean Corpuscular HGB Conc 33.1 GM/DL (32-36); Mean Corpuscular Volume 83.1 FL (87-102); Mean Platelet Volume 8.6 FL (9.6-12.0); Monocytes % 6.7 % (1.7-12.7); Neutrophils % 82.6 % (38.7-73.9); Platelet Count 385 T/CUMM (130-400); Red Blood Count 3.13 MC/CUMM (3.8-5.5); Red Cell Distribution Width 12.3 % (9.3-17.3); White Blood Count 13.4 T/CUMM (4-12)
[2020-11-28] MEDS: ASPIRIN CHEW 81 MG TABLET PO SCH (08:13)
[2020-11-28] MEDS: carvediloL 6.25 MG TABLET PO SCH ×2 (08:13→21:07)
[2020-11-28] MEDS: HALOPERIDOL 5 MG TABLET PO SCH ×3 (08:14→21:10)
[2020-11-28] MEDS: PANTOPRAZOLE 40 MG TABLET PO SCH (08:14)
[2020-11-28] MEDS: INSULIN ASPART PROTAMINE/ASPART 70/30 100 UNIT/ML SUBCUT SCH ×2 (08:14→18:00)
[2020-11-28 08:15] LABS: Calcium 8.5 MG/DL (8.5-10.1); Osmolality,Calculated 289.5 MOS/KG (273-304); Potassium 4.5 MMOL/L (3.5-5.1)
[2020-11-28] MEDS: INSULIN REGULAR 100 UNIT/ML SUBCUT SCH ×4 (08:15→21:08)
[2020-11-28] MEDS: GABAPENTIN 100 MG CAPSULE PO SCH ×4 (08:15→21:07)
[2020-11-28 14:22] LABS: Bacteria,Urine Occasional /HPF (Few); Bilirubin,Urine Negative (Negative); Blood, Urine Small mg/dL (Negative); Glucose,Urine (UA) >=500 mg/dL (Negative); Ketones,Urine Negative (Negative); Mucus,Urine Occasional /LPF (Occasional); Nitrite,Urine Negative (Negative); Protein,Urine 100 MG/DL; RBC,Urine 4 /HPF (0-4); Squamous Epithelial Cell,Urine Occasional /HPF (0-10); Urine Appearance CLEAR (Clear); Urine Color Yellow (Yellow); Urine Specific Gravity 1.012 (1.001-1.035); Urine Urobilinogen < 2.0 EU/DL (0.2-1.0); WBC,Urine 1 /HPF (0-6)
[2020-11-28] MEDS: ENOXAPARIN 40 MG/0.4 ML SYRINGE SUBCUT SCH (21:07)
[2020-11-28] MEDS: ACETAMINOPHEN 325 MG TABLET PO PRN (21:07)
[2020-11-29] MEDS: MEROPENEM 500 MG in SODIUM CHLORIDE 0.9% 100 ML IV SCH ×4 (04:11→20:54)
[2020-11-29] MEDS: ASPIRIN CHEW 81 MG TABLET PO SCH (08:40)
[2020-11-29] MEDS: INSULIN ASPART PROTAMINE/ASPART 70/30 100 UNIT/ML SUBCUT SCH ×2 (08:40→18:03)
[2020-11-29] MEDS: GABAPENTIN 100 MG CAPSULE PO SCH ×4 (08:40→20:54)
[2020-11-29] MEDS: PANTOPRAZOLE 40 MG TABLET PO SCH (08:40)
[2020-11-29] MEDS: HALOPERIDOL 5 MG TABLET PO SCH ×3 (08:40→21:00)
[2020-11-29] MEDS: carvediloL 6.25 MG TABLET PO SCH ×2 (08:40→20:55)
[2020-11-29] MEDS: INSULIN REGULAR 100 UNIT/ML SUBCUT SCH ×4 (08:41→20:52)
[2020-11-29] MEDS: VANCOMYCIN INJ 1,000 MG in SODIUM CHLORIDE 0.9% 250 ML IV SCH (13:45)
[2020-11-29] MEDS: ENOXAPARIN 40 MG/0.4 ML SYRINGE SUBCUT SCH (20:54)
[2020-11-30] MEDS: VANCOMYCIN INJ 1,000 MG in SODIUM CHLORIDE 0.9% 250 ML IV SCH ×2 (00:47→13:21)
[2020-11-30] MEDS: ACETAMINOPHEN 325 MG TABLET PO PRN (00:55)
[2020-11-30] MEDS: MEROPENEM 500 MG in SODIUM CHLORIDE 0.9% 100 ML IV SCH ×4 (02:52→21:20)
[2020-11-30 05:05] LABS: Basophils % 0.2 % (0.0-0.8); Eosinophils # 0.1 10*3/uL (0.0-0.87); Eosinophils % 0.6 % (0.00-10.9); Hematocrit 25.6 VOL% (42.0-52.0); Hemoglobin 8.4 GM/DL (14.0-18.0); Immature Granulocytes % 0.7 %; Immature Granulocytes Absolute 0.08 #; Lymphocytes # 1.3 10*3/uL (1.4-4.0); Lymphocytes % 11.5 % (21.2-54.2); Mean Corpuscular HGB Conc 32.8 GM/DL (32-36); Mean Corpuscular Volume 84.2 FL (87-102); Mean Platelet Volume 9.2 FL (9.6-12.0); Monocytes % 8.4 % (1.7-12.7); Neutrophils % 78.6 % (38.7-73.9); Platelet Count 389 T/CUMM (130-400); Red Blood Count 3.04 MC/CUMM (3.8-5.5); White Blood Count 11.3 T/CUMM (4-12)
[2020-11-30 05:37] LABS: Calcium 8.6 MG/DL (8.5-10.1); Osmolality,Calculated 280.8 MOS/KG (273-304)
[2020-11-30] MEDS: HALOPERIDOL 5 MG TABLET PO SCH ×2 (08:31→21:20)
[2020-11-30] MEDS: PANTOPRAZOLE 40 MG TABLET PO SCH (08:31)
[2020-11-30] MEDS: INSULIN REGULAR 100 UNIT/ML SUBCUT SCH ×4 (08:31→21:21)
[2020-11-30] MEDS: ASPIRIN CHEW 81 MG TABLET PO SCH (08:32)
[2020-11-30] MEDS: carvediloL 6.25 MG TABLET PO SCH ×2 (08:32→21:20)
[2020-11-30] MEDS: INSULIN ASPART PROTAMINE/ASPART 70/30 100 UNIT/ML SUBCUT SCH ×2 (08:32→18:51)
[2020-11-30] MEDS: GABAPENTIN 100 MG CAPSULE PO SCH ×3 (08:32→21:22)
[2020-11-30] MEDS: ENOXAPARIN 40 MG/0.4 ML SYRINGE SUBCUT SCH (21:21)
[2020-12-01] MEDS: VANCOMYCIN INJ 1,000 MG in SODIUM CHLORIDE 0.9% 250 ML IV SCH ×2 (00:55→13:18)
[2020-12-01] MEDS: MEROPENEM 500 MG in SODIUM CHLORIDE 0.9% 100 ML IV SCH ×4 (02:59→20:55)
[2020-12-01] MEDS: ASPIRIN CHEW 81 MG TABLET PO SCH (08:00)
[2020-12-01] MEDS: HALOPERIDOL 5 MG TABLET PO SCH ×3 (08:00→22:41)
[2020-12-01] MEDS: carvediloL 6.25 MG TABLET PO SCH ×3 (08:00→22:40)
[2020-12-01] MEDS: PANTOPRAZOLE 40 MG TABLET PO SCH (08:00)
[2020-12-01] MEDS: GABAPENTIN 100 MG CAPSULE PO SCH ×4 (08:00→22:41)
[2020-12-01] MEDS: INSULIN ASPART PROTAMINE/ASPART 70/30 100 UNIT/ML SUBCUT SCH ×2 (08:01→18:19)
[2020-12-01] MEDS: INSULIN REGULAR 100 UNIT/ML SUBCUT SCH ×4 (08:01→22:40)
[2020-12-01] MEDS: ACETAMINOPHEN 325 MG TABLET PO PRN (16:09)
[2020-12-01] MEDS: MAGNESIUM HYDROXIDE SUSP 30 ML UDCUP PO PRN (16:10)
[2020-12-01] MEDS: ENOXAPARIN 40 MG/0.4 ML SYRINGE SUBCUT SCH (20:55)
[2020-12-02] MEDS: VANCOMYCIN INJ 1,000 MG in SODIUM CHLORIDE 0.9% 250 ML IV SCH ×2 (01:12→12:28)
[2020-12-02] MEDS: MEROPENEM 500 MG in SODIUM CHLORIDE 0.9% 100 ML IV SCH (03:03)
[2020-12-02 05:48] LABS: Basophils % 0.2 % (0.0-0.8); Eosinophils # 0.1 10*3/uL (0.0-0.87); Eosinophils % 0.8 % (0.00-10.9); Hematocrit 25.1 VOL% (42.0-52.0); Hemoglobin 8.3 GM/DL (14.0-18.0); Immature Granulocytes % 0.6 %; Immature Granulocytes Absolute 0.06 #; Lymphocytes # 1.2 10*3/uL (1.4-4.0); Lymphocytes % 12.4 % (21.2-54.2); Mean Corpuscular HGB Conc 33.1 GM/DL (32-36); Mean Corpuscular Volume 82.8 FL (87-102); Mean Platelet Volume 9.5 FL (9.6-12.0); Monocytes % 7.1 % (1.7-12.7); Neutrophils % 78.9 % (38.7-73.9); Platelet Count 373 T/CUMM (130-400); Red Blood Count 3.03 MC/CUMM (3.8-5.5); White Blood Count 9.9 T/CUMM (4-12)
[2020-12-02 05:50] LABS: Total Cells Counted 0
[2020-12-02 06:03] LABS: Allen Test Positive; Pt O2 Delivery Device Room Air
[2020-12-02 06:12] LABS: ABG Base Excess 3.6 MMOL/L (-2.5-2.5); ABG HCO3 27.7 MMOL/L (20-26); ABG Oxygen Saturation 98.3 % (95-100); ABG PH 7.451 (7.35-7.45); ABG TCO2 25.8 MMOL/L (23-27)
[2020-12-02 06:16] LABS: Alanine Aminotransferase 14 U/L (16-61); Alkaline Phosphatase 103 U/L (45-117); Aspartate Amino Transferase 12 U/L (0-37); Bilirubin,Total < 0.39 MG/DL (0.2-1.0); Blood Urea Nitrogen 30 MG/DL (7-18); Calcium 8.8 MG/DL (8.5-10.1); Carbon Dioxide 26 MMOL/L (21-32); Estimated Glom Filtration Rate 95 ML/MIN; Glucose 273 MG/DL (74-106); Osmolality,Calculated 292.5 MOS/KG (273-304); Potassium 4.2 MMOL/L (3.5-5.1); Sodium 139 MMOL/L (136-145); Total Protein 7.1 G/DL (6.4-8.2)
[2020-12-02] MEDS: ASPIRIN CHEW 81 MG TABLET PO SCH (08:25)
[2020-12-02] MEDS: GABAPENTIN 100 MG CAPSULE PO SCH ×3 (08:25→21:11)
[2020-12-02] MEDS: HALOPERIDOL 5 MG TABLET PO SCH ×2 (08:25→21:11)
[2020-12-02] MEDS: carvediloL 6.25 MG TABLET PO SCH ×2 (08:25→21:11)
[2020-12-02] MEDS: PANTOPRAZOLE 40 MG TABLET PO SCH (08:26)
[2020-12-02] MEDS: INSULIN REGULAR 100 UNIT/ML SUBCUT SCH ×4 (08:28→21:12)
[2020-12-02] MEDS: INSULIN ASPART PROTAMINE/ASPART 70/30 100 UNIT/ML SUBCUT SCH ×2 (08:29→18:11)
[2020-12-02] MEDS: ACETAMINOPHEN 325 MG TABLET PO PRN (16:26)
[2020-12-02] MEDS: ENOXAPARIN 40 MG/0.4 ML SYRINGE SUBCUT SCH (21:15)
[2020-12-03] MEDS: MAGNESIUM HYDROXIDE SUSP 30 ML UDCUP PO PRN ×2 (00:17→08:27)
[2020-12-03] MEDS: VANCOMYCIN INJ 1,000 MG in SODIUM CHLORIDE 0.9% 250 ML IV SCH ×2 (00:44→13:00)
[2020-12-03] MEDS: INSULIN REGULAR 100 UNIT/ML SUBCUT SCH ×4 (08:26→21:36)
[2020-12-03] MEDS: PANTOPRAZOLE 40 MG TABLET PO SCH (08:26)
[2020-12-03] MEDS: GABAPENTIN 100 MG CAPSULE PO SCH (08:26)
[2020-12-03] MEDS: INSULIN ASPART PROTAMINE/ASPART 70/30 100 UNIT/ML SUBCUT SCH ×2 (08:26→18:18)
[2020-12-03] MEDS: HALOPERIDOL 5 MG TABLET PO SCH ×2 (08:26→21:26)
[2020-12-03] MEDS: ASPIRIN CHEW 81 MG TABLET PO SCH (08:27)
[2020-12-03] MEDS: carvediloL 6.25 MG TABLET PO SCH ×2 (08:27→21:26)
[2020-12-03] MEDS: ACETAMINOPHEN 325 MG TABLET PO PRN (08:27)
[2020-12-03] MEDS: GABAPENTIN 300 MG CAPSULE PO SCH ×3 (09:34→21:26)
[2020-12-03] MEDS: POLYETHYLENE GLYCOL POWDER 17 GM PACK PO SCH (09:43)
[2020-12-03] MEDS ORDERED: HYDROCORTISONE 25 MG SUPP RECTAL PRN (17:54)
[2020-12-03] MEDS: ENOXAPARIN 40 MG/0.4 ML SYRINGE SUBCUT SCH (21:26)
[2020-12-04] MEDS: VANCOMYCIN INJ 1,000 MG in SODIUM CHLORIDE 0.9% 250 ML IV SCH (01:11)
[2020-12-04 07:11] LABS: Basophils % 0.1 % (0.0-0.8); Eosinophils # 0.1 10*3/uL (0.0-0.87); Eosinophils % 0.9 % (0.00-10.9); Hematocrit 25.4 VOL% (42.0-52.0); Hemoglobin 8.5 GM/DL (14.0-18.0); Immature Granulocytes % 0.3 %; Immature Granulocytes Absolute 0.03 #; Lymphocytes # 1.3 10*3/uL (1.4-4.0); Lymphocytes % 13.1 % (21.2-54.2); Mean Corpuscular HGB Conc 33.5 GM/DL (32-36); Mean Corpuscular Volume 82.5 FL (87-102); Mean Platelet Volume 9.5 FL (9.6-12.0); Monocytes % 5.4 % (1.7-12.7); Neutrophils % 80.2 % (38.7-73.9); Platelet Count 339 T/CUMM (130-400); Red Blood Count 3.08 MC/CUMM (3.8-5.5); Red Cell Distribution Width 12.2 % (9.3-17.3); White Blood Count 9.8 T/CUMM (4-12)
[2020-12-04] MEDS: INSULIN ASPART PROTAMINE/ASPART 70/30 100 UNIT/ML SUBCUT SCH (08:21)
[2020-12-04] MEDS: ASPIRIN CHEW 81 MG TABLET PO SCH (08:21)
[2020-12-04] MEDS: GABAPENTIN 300 MG CAPSULE PO SCH ×3 (08:21→20:54)
[2020-12-04] MEDS: HALOPERIDOL 5 MG TABLET PO SCH ×2 (08:21→20:54)
[2020-12-04] MEDS: carvediloL 6.25 MG TABLET PO SCH ×2 (08:22→20:54)
[2020-12-04] MEDS: PANTOPRAZOLE 40 MG TABLET PO SCH (08:22)
[2020-12-04] MEDS: INSULIN REGULAR 100 UNIT/ML SUBCUT SCH ×4 (08:22→20:54)
[2020-12-04] MEDS: POLYETHYLENE GLYCOL POWDER 17 GM PACK PO SCH (08:50)
[2020-12-04] MEDS ORDERED: INSULIN ASPART PROTAMINE/ASPART 70/30 100 UNIT/ML SUBCUT SCH (17:00)
[2020-12-04] MEDS: ENOXAPARIN 40 MG/0.4 ML SYRINGE SUBCUT SCH (20:54)
[2020-12-04] MEDS ORDERED: DOXYCYCLINE HYCLATE 100 MG CAPSULE PO SCH (21:00)
[2020-12-05 08:17] VITALS: BP 138/79
[2020-12-05] MEDS ORDERED: SULFAMETHOX/TRIMETHOPRIM 800-160 MG TABLET PO SCH (09:00)
[2020-12-05] MEDS: INSULIN ASPART PROTAMINE/ASPART 70/30 100 UNIT/ML SUBCUT SCH (09:18)
[2020-12-05] MEDS: PANTOPRAZOLE 40 MG TABLET PO SCH (09:19)
[2020-12-05] MEDS: GABAPENTIN 300 MG CAPSULE PO SCH (09:19)
[2020-12-05] MEDS: POLYETHYLENE GLYCOL POWDER 17 GM PACK PO SCH (09:19)
[2020-12-05] MEDS: HALOPERIDOL 5 MG TABLET PO SCH (09:19)
[2020-12-05] MEDS: ASPIRIN CHEW 81 MG TABLET PO SCH (09:19)
[2020-12-05] MEDS: INSULIN REGULAR 100 UNIT/ML SUBCUT SCH ×2 (09:19→11:53)
[2020-12-05] MEDS: carvediloL 6.25 MG TABLET PO SCH (09:20)
== END 2020-12-05 11:59 | DRG 305 ==
LOC: N.SDSINP 06:02 → N.OR 06:02 → N.SDSINP 06:07 → N.5E 12:42
PROVIDERS: ADMIT Student in an Organized Health Care Education/Training Program; ATTEND Student in an Organized Health Care Education/Training Program

== ENCOUNTER 2020-12-22 13:24 | Inpatient (IN) ==
[2020-12-22 14:40] LABS: Calcium 8.8 MG/DL (8.5-10.1); Osmolality,Calculated 287.3 MOS/KG (273-304)
[2020-12-22] MEDS ORDERED: DEXTROSE 50% 25 GM/50 ML VIAL IV PRN (15:14)
[2020-12-22] MEDS ORDERED: PIPERACILLIN/TAZOBACTAM 3,375 MG in SODIUM CHLORIDE 0.9% 100 ML IV STA ×2 (15:14→15:16)
[2020-12-22] MEDS ORDERED: ONDANSETRON 4 MG/2 ML VIAL IV PRN (15:14)
[2020-12-22] MEDS ORDERED: ACETAMINOPHEN 325 MG TABLET PO PRN (15:14)
[2020-12-22] MEDS ORDERED: GLUCAGON 1 MG VIAL IM PRN (15:14)
[2020-12-22] MEDS ORDERED: LACTATED RINGERS 1,000 ML IV SCH (15:30)
[2020-12-22] MEDS: carvediloL 6.25 MG TABLET PO SCH (17:51)
[2020-12-22] MEDS: INSULIN ASPART PROTAMINE/ASPART 70/30 100 UNIT/ML SUBCUT SCH (18:35)
[2020-12-22] MEDS: HALOPERIDOL 5 MG TABLET PO SCH (20:40)
[2020-12-23] MEDS: PIPERACILLIN/TAZOBACTAM 3,375 MG in SODIUM CHLORIDE 0.9% 100 ML IV SCH ×3 (00:42→17:36)
[2020-12-23 05:46] LABS: Basophils % 0.4 % (0.0-0.8); Eosinophils % 0.7 % (0.00-10.9); Hematocrit 26.1 VOL% (42.0-52.0); Hemoglobin 8.4 GM/DL (14.0-18.0); Immature Granulocytes % 0.4 %; Immature Granulocytes Absolute 0.02 #; Lymphocytes # 1.4 10*3/uL (1.4-4.0); Lymphocytes % 25.5 % (21.2-54.2); Mean Corpuscular HGB Conc 32.2 GM/DL (32-36); Mean Corpuscular Volume 85.9 FL (87-102); Mean Platelet Volume 9.6 FL (9.6-12.0); Monocytes % 10.3 % (1.7-12.7); Neutrophils % 62.7 % (38.7-73.9); Platelet Count 220 T/CUMM (130-400); Red Blood Count 3.04 MC/CUMM (3.8-5.5); Red Cell Distribution Width 14.2 % (9.3-17.3); White Blood Count 5.4 T/CUMM (4-12)
[2020-12-23 06:07] LABS: Calcium 9.1 MG/DL (8.5-10.1); Osmolality,Calculated 281.3 MOS/KG (273-304); Potassium 4.2 MMOL/L (3.5-5.1)
[2020-12-23] MEDS: INSULIN ASPART PROTAMINE/ASPART 70/30 100 UNIT/ML SUBCUT SCH ×2 (09:18→18:50)
[2020-12-23] MEDS: HALOPERIDOL 5 MG TABLET PO SCH ×2 (09:22→21:35)
[2020-12-23] MEDS: PANTOPRAZOLE 40 MG TABLET PO SCH (09:22)
[2020-12-23] MEDS: carvediloL 6.25 MG TABLET PO SCH ×2 (09:22→17:36)
[2020-12-23] MEDS: ASPIRIN CHEW 81 MG TABLET PO SCH (09:22)
[2020-12-24] MEDS: PIPERACILLIN/TAZOBACTAM 3,375 MG in SODIUM CHLORIDE 0.9% 100 ML IV SCH ×4 (00:17→23:59)
[2020-12-24] MEDS: LACTATED RINGERS 1,000 ML IV SCH ×3 (00:18→20:01)
[2020-12-24] MEDS: INSULIN ASPART PROTAMINE/ASPART 70/30 100 UNIT/ML SUBCUT SCH ×2 (11:33→20:01)
[2020-12-24] MEDS: carvediloL 6.25 MG TABLET PO SCH ×2 (14:02→17:17)
[2020-12-24] MEDS: ASPIRIN CHEW 81 MG TABLET PO SCH (14:03)
[2020-12-24] MEDS: HALOPERIDOL 5 MG TABLET PO SCH ×2 (14:03→20:00)
[2020-12-24] MEDS: PANTOPRAZOLE 40 MG TABLET PO SCH (14:03)
[2020-12-24] MEDS ORDERED: MIDAZOLAM 2 MG/2 ML VIAL ONE (17:40)
[2020-12-24] MEDS ORDERED: fentaNYL 100 MCG/2 ML VIAL ONE (17:40)
[2020-12-24] MEDS ORDERED: propofoL 200 MG/20 ML VIAL IV ONE (17:40)
[2020-12-24] MEDS ORDERED: LIDOCAINE 2% 5 ML VIAL ONE (17:40)
[2020-12-24] MEDS ORDERED: LIDOCAINE 1% 20 ML VIAL ONE (18:16)
[2020-12-24] MEDS ORDERED: BUPIVACAINE MPF 0.25% 30 ML VIAL ONE (18:16)
[2020-12-24] MEDS ORDERED: ONDANSETRON 4 MG/2 ML VIAL ONE (18:20)
[2020-12-24] MEDS ORDERED: SEVOFLURANE 1 UNIT/15 MINUTE INH ONE (18:20)
[2020-12-25 04:49] LABS: Basophils % 0.3 % (0.0-0.8); Eosinophils # 0.1 10*3/uL (0.0-0.87); Eosinophils % 0.9 % (0.00-10.9); Hematocrit 25.7 VOL% (42.0-52.0); Hemoglobin 8.6 GM/DL (14.0-18.0); Immature Granulocytes % 0.3 %; Immature Granulocytes Absolute 0.02 #; Lymphocytes # 1.3 10*3/uL (1.4-4.0); Lymphocytes % 20.1 % (21.2-54.2); Mean Corpuscular HGB Conc 33.5 GM/DL (32-36); Mean Corpuscular Volume 82.6 FL (87-102); Mean Platelet Volume 9.3 FL (9.6-12.0); Monocytes % 9.4 % (1.7-12.7); Platelet Count 216 T/CUMM (130-400); Red Blood Count 3.11 MC/CUMM (3.8-5.5); White Blood Count 6.6 T/CUMM (4-12)
[2020-12-25] MEDS: LACTATED RINGERS 1,000 ML IV SCH ×2 (05:45→17:38)
[2020-12-25] MEDS: carvediloL 6.25 MG TABLET PO SCH ×2 (09:47→17:39)
[2020-12-25] MEDS: INSULIN ASPART PROTAMINE/ASPART 70/30 100 UNIT/ML SUBCUT SCH ×2 (09:47→17:38)
[2020-12-25] MEDS: PIPERACILLIN/TAZOBACTAM 3,375 MG in SODIUM CHLORIDE 0.9% 100 ML IV SCH ×2 (09:48→17:38)
[2020-12-25] MEDS: ASPIRIN CHEW 81 MG TABLET PO SCH (09:48)
[2020-12-25] MEDS: HALOPERIDOL 5 MG TABLET PO SCH ×2 (09:48→20:43)
[2020-12-25] MEDS: PANTOPRAZOLE 40 MG TABLET PO SCH (09:49)
[2020-12-26] MEDS: PIPERACILLIN/TAZOBACTAM 3,375 MG in SODIUM CHLORIDE 0.9% 100 ML IV SCH ×2 (00:03→09:30)
[2020-12-26] MEDS: LACTATED RINGERS 1,000 ML IV SCH ×2 (02:02→13:31)
[2020-12-26] MEDS: INSULIN ASPART PROTAMINE/ASPART 70/30 100 UNIT/ML SUBCUT SCH (09:29)
[2020-12-26] MEDS: HALOPERIDOL 5 MG TABLET PO SCH (09:30)
[2020-12-26] MEDS: PANTOPRAZOLE 40 MG TABLET PO SCH (09:30)
[2020-12-26] MEDS: ASPIRIN CHEW 81 MG TABLET PO SCH (09:30)
[2020-12-26] MEDS: carvediloL 6.25 MG TABLET PO SCH (09:30)
[2020-12-26 11:29] VITALS: BP 160/80
== END 2020-12-26 15:25 | disposition home health service (06) | DRG 314 ==
LOC: EDBD → EDUNIT# → N.ED 13:24 → N.EDINP 13:24 → N.3E 15:51
PROVIDERS: ADMIT Student in an Organized Health Care Education/Training Program; ATTEND Student in an Organized Health Care Education/Training Program

== ENCOUNTER 2021-01-11 | Inpatient (IN) ==
[2021-01-11] MEDS ORDERED: IBUPROFEN 200 MG TABLET PO STA (00:21)
[2021-01-11] MEDS ORDERED: cefTRIAXone 1,000 MG in SODIUM CHLORIDE 0.9% 100 ML IV STA (00:22)
[2021-01-11 00:40] LABS: Alanine Aminotransferase 28 U/L (16-61); Albumin 2.2 G/DL (3.4-5.0); Alkaline Phosphatase 90 U/L (45-117); Aspartate Amino Transferase 20 U/L (0-37); Bilirubin,Total < 0.39 MG/DL (0.2-1.0); Blood Urea Nitrogen 22 MG/DL (7-18); Calcium 8.8 MG/DL (8.5-10.1); Carbon Dioxide 28 MMOL/L (21-32); Estimated Glom Filtration Rate 97 ML/MIN; Glucose 129 MG/DL (74-106); Osmolality,Calculated 281.5 MOS/KG (273-304); Potassium 3.3 MMOL/L (3.5-5.1); Sodium 139 MMOL/L (136-145); Total Protein 6.9 G/DL (6.4-8.2)
[2021-01-11 00:48] LABS: Basophils % 0.3 % (0.0-0.8); Eosinophils # 0.1 10*3/uL (0.0-0.87); Eosinophils % 1.6 % (0.00-10.9); Hematocrit 26.8 VOL% (42.0-52.0); Hemoglobin 8.6 GM/DL (14.0-18.0); Immature Granulocytes % 0.5 %; Immature Granulocytes Absolute 0.04 #; Lymphocytes # 1.4 10*3/uL (1.4-4.0); Lymphocytes % 19.4 % (21.2-54.2); Mean Corpuscular HGB Conc 32.1 GM/DL (32-36); Mean Platelet Volume 9.8 FL (9.6-12.0); Monocytes % 11.7 % (1.7-12.7); Neutrophils % 66.5 % (38.7-73.9); Platelet Count 320 T/CUMM (130-400); Red Blood Count 3.23 MC/CUMM (3.8-5.5); Red Cell Distribution Width 13.7 % (9.3-17.3); White Blood Count 7.4 T/CUMM (4-12)
[2021-01-11 01:06] LABS: Bilirubin,Urine Negative (Negative); Blood, Urine Small mg/dL (Negative); Glucose,Urine (UA) >=500 mg/dL (Negative); Hyaline Casts,Urine 1 /LPF (0-3); Ketones,Urine Negative (Negative); Mucus,Urine Occasional /LPF (Occasional); Nitrite,Urine Negative (Negative); Protein,Urine 100 MG/DL; RBC,Urine 10 /HPF (0-4); Urine Appearance CLEAR (Clear); Urine Color Yellow (Yellow); Urine Specific Gravity 1.016 (1.001-1.035); Urine Urobilinogen < 2.0 EU/DL (0.2-1.0)
[2021-01-11] MEDS ORDERED: POTASSIUM CHLORIDE 20 MEQ TABLET PO STA (01:16)
[2021-01-11] MEDS ORDERED: LACTATED RINGERS 1,000 ML IV ONE (01:16)
[2021-01-11] MEDS ORDERED: POTASSIUM CHLORIDE 20 MEQ PACK PO STA (01:33)
[2021-01-11] MEDS ORDERED: VANCOMYCIN INJ 1,000 MG in SODIUM CHLORIDE 0.9% 250 ML IV STA (01:38)
[2021-01-11] MEDS ORDERED: SODIUM CHLORIDE 0.9% 1,000 ML IV STA (01:43)
[2021-01-11] MEDS ORDERED: hydrALAZINE 20 MG/1 ML VIAL IV PRN (02:04)
[2021-01-11] MEDS ORDERED: diphenhydrAMINE CAP 25 MG CAPSULE PO PRN (02:04)
[2021-01-11] MEDS ORDERED: GLUCAGON 1 MG VIAL IM PRN (02:04)
[2021-01-11] MEDS ORDERED: guaiFENesin/DM ER 600-30 MG TABLET PO PRN (02:04)
[2021-01-11] MEDS ORDERED: ONDANSETRON 4 MG/2 ML VIAL IV PRN (02:04)
[2021-01-11] MEDS ORDERED: DEXTROSE 50% 25 GM/50 ML VIAL IV PRN (02:04)
[2021-01-11] MEDS ORDERED: NICOTINE 21 MG/24 HR PATCH TRANSDERM PRN (02:04)
[2021-01-11] MEDS: carvediloL 6.25 MG TABLET PO SCH ×2 (10:26→21:46)
[2021-01-11] MEDS: INSULIN REGULAR 100 UNIT/ML SUBCUT SCH ×4 (10:26→21:47)
[2021-01-11] MEDS: SODIUM CHLORIDE 0.9% 1,000 ML IV SCH ×2 (10:38→15:50)
[2021-01-11] MEDS: MORPHINE 4 MG/1 ML VIAL IV PRN (13:02)
[2021-01-11] MEDS: VANCOMYCIN INJ 1,000 MG in SODIUM CHLORIDE 0.9% 250 ML IV SCH (13:59)
[2021-01-11] MEDS: ACETAMINOPHEN 325 MG TABLET PO PRN ×2 (17:02→21:49)
[2021-01-12] MEDS: SODIUM CHLORIDE 0.9% 1,000 ML IV SCH ×3 (01:00→21:06)
[2021-01-12] MEDS: VANCOMYCIN INJ 1,000 MG in SODIUM CHLORIDE 0.9% 250 ML IV SCH ×2 (02:19→13:59)
[2021-01-12] MEDS: MORPHINE 4 MG/1 ML VIAL IV PRN (04:06)
[2021-01-12] MEDS: ACETAMINOPHEN 325 MG TABLET PO PRN ×2 (06:12→16:57)
[2021-01-12 07:02] LABS: Basophils % 0.1 % (0.0-0.8); Eosinophils # 0.1 10*3/uL (0.0-0.87); Eosinophils % 0.8 % (0.00-10.9); Hematocrit 24.6 VOL% (42.0-52.0); Hemoglobin 7.9 GM/DL (14.0-18.0); Immature Granulocytes % 0.4 %; Immature Granulocytes Absolute 0.03 #; Lymphocytes # 1.1 10*3/uL (1.4-4.0); Mean Corpuscular HGB Conc 32.1 GM/DL (32-36); Mean Corpuscular Volume 82.6 FL (87-102); Mean Platelet Volume 9.6 FL (9.6-12.0); Monocytes % 10.1 % (1.7-12.7); Neutrophils % 74.6 % (38.7-73.9); Platelet Count 330 T/CUMM (130-400); Red Blood Count 2.98 MC/CUMM (3.8-5.5); Red Cell Distribution Width 13.7 % (9.3-17.3); White Blood Count 7.6 T/CUMM (4-12)
[2021-01-12 07:18] LABS: Calcium 8.4 MG/DL (8.5-10.1); Osmolality,Calculated 274.1 MOS/KG (273-304); Potassium 3.7 MMOL/L (3.5-5.1)
[2021-01-12] MEDS: carvediloL 6.25 MG TABLET PO SCH ×2 (09:08→21:06)
[2021-01-12] MEDS: INSULIN REGULAR 100 UNIT/ML SUBCUT SCH ×4 (09:08→21:06)
[2021-01-13] MEDS: ACETAMINOPHEN 325 MG TABLET PO PRN ×2 (00:18→16:02)
[2021-01-13] MEDS: MORPHINE 4 MG/1 ML VIAL IV PRN ×3 (02:05→21:36)
[2021-01-13] MEDS: VANCOMYCIN INJ 1,000 MG in SODIUM CHLORIDE 0.9% 250 ML IV SCH ×2 (02:06→15:21)
[2021-01-13 06:36] LABS: Basophils % 0.3 % (0.0-0.8); Eosinophils % 0.4 % (0.00-10.9); Hematocrit 25.1 VOL% (42.0-52.0); Hemoglobin 8.1 GM/DL (14.0-18.0); Immature Granulocytes % 0.7 %; Immature Granulocytes Absolute 0.05 #; Lymphocytes # 1.1 10*3/uL (1.4-4.0); Lymphocytes % 16.3 % (21.2-54.2); Mean Corpuscular HGB Conc 32.3 GM/DL (32-36); Mean Platelet Volume 9.6 FL (9.6-12.0); Monocytes % 11.6 % (1.7-12.7); Neutrophils % 70.7 % (38.7-73.9); Platelet Count 331 T/CUMM (130-400); Red Blood Count 3.06 MC/CUMM (3.8-5.5); Red Cell Distribution Width 13.5 % (9.3-17.3)
[2021-01-13 07:01] LABS: Calcium 8.5 MG/DL (8.5-10.1); Osmolality,Calculated 279.7 MOS/KG (273-304); Potassium 3.5 MMOL/L (3.5-5.1)
[2021-01-13] MEDS: INSULIN REGULAR 100 UNIT/ML SUBCUT SCH ×4 (08:42→21:45)
[2021-01-13] MEDS: carvediloL 6.25 MG TABLET PO SCH ×2 (08:43→21:36)
[2021-01-13] MEDS: SODIUM CHLORIDE 0.9% 1,000 ML IV SCH ×2 (12:52→21:49)
[2021-01-13] MEDS: amLODIPine 5 MG TABLET PO SCH (15:20)
[2021-01-14] MEDS: ACETAMINOPHEN 325 MG TABLET PO PRN ×3 (00:02→20:55)
[2021-01-14] MEDS: VANCOMYCIN INJ 1,000 MG in SODIUM CHLORIDE 0.9% 250 ML IV SCH (02:57)
[2021-01-14] MEDS: SODIUM CHLORIDE 0.9% 1,000 ML IV SCH ×2 (02:57→17:32)
[2021-01-14 05:47] LABS: Basophils % 0.2 % (0.0-0.8); Eosinophils # 0.1 10*3/uL (0.0-0.87); Eosinophils % 0.6 % (0.00-10.9); Hematocrit 22.5 VOL% (42.0-52.0); Hemoglobin 7.4 GM/DL (14.0-18.0); Immature Granulocytes % 0.7 %; Immature Granulocytes Absolute 0.06 #; Lymphocytes # 1.2 10*3/uL (1.4-4.0); Lymphocytes % 14.4 % (21.2-54.2); Mean Corpuscular HGB Conc 32.9 GM/DL (32-36); Mean Corpuscular Volume 81.2 FL (87-102); Mean Platelet Volume 8.9 FL (9.6-12.0); Monocytes % 12.1 % (1.7-12.7); Platelet Count 320 T/CUMM (130-400); Red Blood Count 2.77 MC/CUMM (3.8-5.5); Red Cell Distribution Width 13.6 % (9.3-17.3); White Blood Count 8.3 T/CUMM (4-12)
[2021-01-14 06:16] LABS: Albumin 1.9 G/DL (3.4-5.0); Bilirubin,Total 0.4 MG/DL (0.2-1.0); Calcium 8.5 MG/DL (8.5-10.1); Potassium 3.7 MMOL/L (3.5-5.1); Total Protein 6.4 G/DL (6.4-8.2)
[2021-01-14 06:34] LABS: Eosinophils 1 % (0-10); Hypochromasia 1+; Lymphocytes 18 % (20-55); Microcytosis 1+; Platelet Estimate Adequate; Segmented Neutrophils 70 % (50-85); Total Cells Counted 100
[2021-01-14] MEDS: INSULIN REGULAR 100 UNIT/ML SUBCUT SCH ×4 (07:59→21:03)
[2021-01-14] MEDS: amLODIPine 5 MG TABLET PO SCH (08:33)
[2021-01-14] MEDS: carvediloL 6.25 MG TABLET PO SCH ×2 (08:33→20:55)
[2021-01-14] MEDS ORDERED: CEFEPIME 1,000 MG in SODIUM CHLORIDE 0.9% 100 ML IV SCH (10:00)
[2021-01-15] MEDS: SODIUM CHLORIDE 0.9% 1,000 ML IV SCH ×3 (01:49→21:30)
[2021-01-15] MEDS: ACETAMINOPHEN 325 MG TABLET PO PRN ×3 (05:15→21:24)
[2021-01-15] MEDS: INSULIN REGULAR 100 UNIT/ML SUBCUT SCH ×4 (07:40→21:25)
[2021-01-15 08:07] LABS: Basophils % 0.1 % (0.0-0.8); Eosinophils % 0.5 % (0.00-10.9); Hematocrit 23.2 VOL% (42.0-52.0); Hemoglobin 7.5 GM/DL (14.0-18.0); Immature Granulocytes % 1.4 %; Immature Granulocytes Absolute 0.12 #; Lymphocytes % 11.2 % (21.2-54.2); Mean Corpuscular HGB Conc 32.3 GM/DL (32-36); Mean Corpuscular Volume 81.1 FL (87-102); Mean Platelet Volume 8.7 FL (9.6-12.0); Monocytes % 8.4 % (1.7-12.7); Neutrophils % 78.4 % (38.7-73.9); Platelet Count 342 T/CUMM (130-400); Red Blood Count 2.86 MC/CUMM (3.8-5.5); Red Cell Distribution Width 13.8 % (9.3-17.3); White Blood Count 8.7 T/CUMM (4-12)
[2021-01-15 08:22] LABS: Calcium 8.4 MG/DL (8.5-10.1); Osmolality,Calculated 280.8 MOS/KG (273-304); Potassium 3.6 MMOL/L (3.5-5.1)
[2021-01-15] MEDS: carvediloL 6.25 MG TABLET PO SCH ×2 (08:43→21:24)
[2021-01-15] MEDS: amLODIPine 5 MG TABLET PO SCH (08:43)
[2021-01-15] MEDS: MENTHOL/ZINC OXIDE OINT 71 GM JAR TOP SCH ×2 (13:05→21:24)
[2021-01-16] MEDS: ACETAMINOPHEN 325 MG TABLET PO PRN ×3 (01:43→21:53)
[2021-01-16] MEDS: amLODIPine 5 MG TABLET PO SCH (09:13)
[2021-01-16] MEDS: INSULIN REGULAR 100 UNIT/ML SUBCUT SCH ×4 (09:13→21:54)
[2021-01-16] MEDS: carvediloL 6.25 MG TABLET PO SCH ×2 (09:13→21:53)
[2021-01-16] MEDS: MENTHOL/ZINC OXIDE OINT 71 GM JAR TOP SCH ×2 (09:14→21:55)
[2021-01-16 10:13] LABS: Amorphous Crystals,Urine Few /HPF (Few); Bilirubin,Urine Negative (Negative); Blood, Urine Moderate mg/dL (Negative); Glucose,Urine (UA) >=500 mg/dL (Negative); Ketones,Urine Negative (Negative); Mucus,Urine Occasional /LPF (Occasional); Nitrite,Urine Negative (Negative); Protein,Urine 100 MG/DL; RBC,Urine 6 /HPF (0-4); Urine Appearance CLEAR (Clear); Urine Color Yellow (Yellow); Urine Specific Gravity 1.013 (1.001-1.035); Urine Urobilinogen < 2.0 EU/DL (0.2-1.0)
[2021-01-16] MEDS: SODIUM CHLORIDE 0.9% 1,000 ML IV SCH ×2 (11:45→15:50)
[2021-01-16] MEDS: PIPERACILLIN/TAZOBACTAM 3,375 MG in SODIUM CHLORIDE 0.9% 100 ML IV SCH ×2 (14:26→21:54)
[2021-01-16] MEDS: VANCOMYCIN INJ 1,000 MG in SODIUM CHLORIDE 0.9% 250 ML IV SCH (19:16)
[2021-01-17] MEDS: VANCOMYCIN INJ 1,000 MG in SODIUM CHLORIDE 0.9% 250 ML IV SCH ×2 (05:29→17:15)
[2021-01-17] MEDS: PIPERACILLIN/TAZOBACTAM 3,375 MG in SODIUM CHLORIDE 0.9% 100 ML IV SCH (06:33)
[2021-01-17 07:57] LABS: Basophils % 0.2 % (0.0-0.8); Eosinophils # 0.1 10*3/uL (0.0-0.87); Eosinophils % 0.9 % (0.00-10.9); Hemoglobin 7.5 GM/DL (14.0-18.0); Immature Granulocytes % 1.2 %; Immature Granulocytes Absolute 0.12 #; Lymphocytes # 1.1 10*3/uL (1.4-4.0); Mean Corpuscular HGB Conc 32.6 GM/DL (32-36); Mean Corpuscular Volume 82.1 FL (87-102); Mean Platelet Volume 9.8 FL (9.6-12.0); Monocytes % 8.4 % (1.7-12.7); Neutrophils % 78.3 % (38.7-73.9); Platelet Count 208 T/CUMM (130-400); Red Cell Distribution Width 13.8 % (9.3-17.3); White Blood Count 9.7 T/CUMM (4-12)
[2021-01-17 08:11] LABS: Calcium 8.3 MG/DL (8.5-10.1); Osmolality,Calculated 276.8 MOS/KG (273-304); Potassium 3.4 MMOL/L (3.5-5.1)
[2021-01-17 08:16] LABS: Platelet Estimate Adequate
[2021-01-17 08:17] LABS: Acanthocytes Few; Hypochromasia 1+; Microcytosis 1+
[2021-01-17] MEDS: MENTHOL/ZINC OXIDE OINT 71 GM JAR TOP SCH ×2 (08:26→22:00)
[2021-01-17] MEDS: amLODIPine 5 MG TABLET PO SCH (08:27)
[2021-01-17] MEDS: carvediloL 6.25 MG TABLET PO SCH ×2 (08:27→21:59)
[2021-01-17] MEDS: INSULIN REGULAR 100 UNIT/ML SUBCUT SCH ×4 (08:38→22:00)
[2021-01-17] MEDS: TAMSULOSIN 0.4 MG CAPSULE PO SCH (09:26)
[2021-01-17] MEDS ORDERED: POTASSIUM CHLORIDE 20 MEQ TABLET PO ONE (11:13)
[2021-01-17] MEDS: cefTRIAXone 1,000 MG in SODIUM CHLORIDE 0.9% 100 ML IV SCH (13:49)
[2021-01-18] MEDS: VANCOMYCIN INJ 1,000 MG in SODIUM CHLORIDE 0.9% 250 ML IV SCH ×2 (06:07→21:49)
[2021-01-18 06:43] LABS: Basophils % 0.2 % (0.0-0.8); Eosinophils # 0.1 10*3/uL (0.0-0.87); Hematocrit 21.5 VOL% (42.0-52.0); Hemoglobin 6.8 GM/DL (14.0-18.0); Immature Granulocytes % 0.8 %; Immature Granulocytes Absolute 0.07 #; Lymphocytes # 1.2 10*3/uL (1.4-4.0); Lymphocytes % 12.9 % (21.2-54.2); Mean Corpuscular HGB Conc 31.6 GM/DL (32-36); Mean Corpuscular Volume 83.7 FL (87-102); Mean Platelet Volume 8.8 FL (9.6-12.0); Monocytes % 7.5 % (1.7-12.7); Neutrophils % 77.6 % (38.7-73.9); Platelet Count 345 T/CUMM (130-400); Red Blood Count 2.57 MC/CUMM (3.8-5.5); White Blood Count 9.2 T/CUMM (4-12)
[2021-01-18 06:58] LABS: Calcium 8.1 MG/DL (8.5-10.1); Osmolality,Calculated 285.4 MOS/KG (273-304); Potassium 3.8 MMOL/L (3.5-5.1)
[2021-01-18] MEDS ORDERED: SODIUM CHLORIDE 0.9% 1,000 ML IV PRN (07:27)
[2021-01-18 08:28] LABS: % Iron Saturation 14.6 % (18-50); Ferritin 222.8 ng/ml (26-388)
[2021-01-18] MEDS: SODIUM CHLORIDE 0.9% 1,000 ML IV SCH ×3 (08:43→21:56)
[2021-01-18] MEDS: TAMSULOSIN 0.4 MG CAPSULE PO SCH (09:14)
[2021-01-18] MEDS: FERROUS SULFATE 325 MG TABLET PO SCH (09:14)
[2021-01-18] MEDS: ASPIRIN CHEW 81 MG TABLET PO SCH (09:14)
[2021-01-18] MEDS: carvediloL 6.25 MG TABLET PO SCH ×2 (09:14→21:55)
[2021-01-18] MEDS: amLODIPine 5 MG TABLET PO SCH (09:14)
[2021-01-18] MEDS: HALOPERIDOL 5 MG TABLET PO SCH ×2 (09:14→21:56)
[2021-01-18] MEDS: MENTHOL/ZINC OXIDE OINT 71 GM JAR TOP SCH ×2 (09:15→21:58)
[2021-01-18] MEDS: INSULIN REGULAR 100 UNIT/ML SUBCUT SCH ×4 (09:19→21:55)
[2021-01-18 11:13] LABS: Basophils % 0.2 % (0.0-0.8); Eosinophils # 0.1 10*3/uL (0.0-0.87); Hematocrit 21.3 VOL% (42.0-52.0); Hemoglobin 6.6 GM/DL (14.0-18.0); Immature Granulocytes % 1.3 %; Immature Granulocytes Absolute 0.12 #; Lymphocytes # 1.2 10*3/uL (1.4-4.0); Lymphocytes % 12.8 % (21.2-54.2); Mean Corpuscular Volume 84.5 FL (87-102); Mean Platelet Volume 8.6 FL (9.6-12.0); Monocytes % 6.4 % (1.7-12.7); Neutrophils % 78.3 % (38.7-73.9); Platelet Count 348 T/CUMM (130-400); Red Blood Count 2.52 MC/CUMM (3.8-5.5); White Blood Count 9.4 T/CUMM (4-12)
[2021-01-18 11:43] LABS: Folate 11.74 NG/ML (5.38-24.0); Vitamin B12 682 PG/ML (211-911)
[2021-01-18 12:13] LABS: Sedimentation Rate-Westergren 138 MM/HR (0-20)
[2021-01-18] MEDS: cefTRIAXone 1,000 MG in SODIUM CHLORIDE 0.9% 100 ML IV SCH (13:03)
[2021-01-19 06:01] LABS: Basophils % 0.2 % (0.0-0.8); Eosinophils # 0.1 10*3/uL (0.0-0.87); Eosinophils % 1.2 % (0.00-10.9); Hematocrit 27.1 VOL% (42.0-52.0); Immature Granulocytes % 0.9 %; Immature Granulocytes Absolute 0.11 #; Lymphocytes # 1.4 10*3/uL (1.4-4.0); Lymphocytes % 11.6 % (21.2-54.2); Mean Corpuscular HGB Conc 33.9 GM/DL (32-36); Mean Corpuscular Volume 81.9 FL (87-102); Mean Platelet Volume 8.7 FL (9.6-12.0); Monocytes % 6.6 % (1.7-12.7); Neutrophils % 79.5 % (38.7-73.9); Platelet Count 338 T/CUMM (130-400); Red Cell Distribution Width 13.8 % (9.3-17.3); White Blood Count 11.9 T/CUMM (4-12)
[2021-01-19 06:17] LABS: Calcium 8.1 MG/DL (8.5-10.1); Osmolality,Calculated 285.4 MOS/KG (273-304); Potassium 3.9 MMOL/L (3.5-5.1)
[2021-01-19 06:25] LABS: Hemoglobin 9.2 GM/DL (14.0-18.0); Red Blood Count 3.31 MC/CUMM (3.8-5.5)
[2021-01-19] MEDS ORDERED: BISACODYL 10 MG SUPP RECTAL ONE (08:35)
[2021-01-19] MEDS: INSULIN REGULAR 100 UNIT/ML SUBCUT SCH ×4 (08:45→20:46)
[2021-01-19] MEDS: VANCOMYCIN INJ 1,000 MG in SODIUM CHLORIDE 0.9% 250 ML IV SCH ×2 (08:45→20:30)
[2021-01-19] MEDS: ASPIRIN CHEW 81 MG TABLET PO SCH (08:46)
[2021-01-19] MEDS: amLODIPine 5 MG TABLET PO SCH (08:46)
[2021-01-19] MEDS: FERROUS SULFATE 325 MG TABLET PO SCH (08:46)
[2021-01-19] MEDS: HALOPERIDOL 5 MG TABLET PO SCH ×2 (08:46→20:46)
[2021-01-19] MEDS: carvediloL 6.25 MG TABLET PO SCH ×2 (08:46→20:46)
[2021-01-19] MEDS: TAMSULOSIN 0.4 MG CAPSULE PO SCH (08:47)
[2021-01-19] MEDS: MENTHOL/ZINC OXIDE OINT 71 GM JAR TOP SCH ×2 (08:47→20:46)
[2021-01-19] MEDS: POLYETHYLENE GLYCOL POWDER 17 GM PACK PO SCH (08:49)
[2021-01-19] MEDS: SODIUM CHLORIDE 0.9% 1,000 ML IV SCH (10:43)
[2021-01-19] MEDS: ACETAMINOPHEN 325 MG TABLET PO PRN (12:19)
[2021-01-19] MEDS: cefTRIAXone 1,000 MG in SODIUM CHLORIDE 0.9% 100 ML IV SCH (14:27)
[2021-01-20] MEDS: VANCOMYCIN INJ 1,000 MG in SODIUM CHLORIDE 0.9% 250 ML IV SCH ×2 (03:54→21:53)
[2021-01-20 06:11] LABS: Basophils % 0.3 % (0.0-0.8); Eosinophils # 0.1 10*3/uL (0.0-0.87); Eosinophils % 1.3 % (0.00-10.9); Hematocrit 27.4 VOL% (42.0-52.0); Hemoglobin 8.9 GM/DL (14.0-18.0); Immature Granulocytes Absolute 0.11 #; Lymphocytes # 1.2 10*3/uL (1.4-4.0); Lymphocytes % 11.2 % (21.2-54.2); Mean Corpuscular HGB Conc 32.5 GM/DL (32-36); Mean Corpuscular Volume 85.1 FL (87-102); Mean Platelet Volume 8.8 FL (9.6-12.0); Monocytes % 5.5 % (1.7-12.7); Neutrophils % 80.7 % (38.7-73.9); Platelet Count 352 T/CUMM (130-400); Red Blood Count 3.22 MC/CUMM (3.8-5.5); Red Cell Distribution Width 13.8 % (9.3-17.3); White Blood Count 10.5 T/CUMM (4-12)
[2021-01-20 06:43] LABS: Calcium 8.3 MG/DL (8.5-10.1); Osmolality,Calculated 288.3 MOS/KG (273-304); Potassium 3.8 MMOL/L (3.5-5.1)
[2021-01-20] MEDS: INSULIN REGULAR 100 UNIT/ML SUBCUT SCH ×4 (09:17→21:53)
[2021-01-20] MEDS: TAMSULOSIN 0.4 MG CAPSULE PO SCH (09:21)
[2021-01-20] MEDS: HALOPERIDOL 5 MG TABLET PO SCH ×2 (09:21→21:53)
[2021-01-20] MEDS: ASPIRIN CHEW 81 MG TABLET PO SCH (09:21)
[2021-01-20] MEDS: carvediloL 6.25 MG TABLET PO SCH ×2 (09:21→21:53)
[2021-01-20] MEDS: FERROUS SULFATE 325 MG TABLET PO SCH (09:21)
[2021-01-20] MEDS: amLODIPine 5 MG TABLET PO SCH (09:21)
[2021-01-20] MEDS: POLYETHYLENE GLYCOL POWDER 17 GM PACK PO SCH (12:13)
[2021-01-20] MEDS: MENTHOL/ZINC OXIDE OINT 71 GM JAR TOP SCH ×2 (12:18→21:53)
[2021-01-20] MEDS: cefTRIAXone 1,000 MG in SODIUM CHLORIDE 0.9% 100 ML IV SCH (14:48)
[2021-01-21] MEDS: SODIUM CHLORIDE 0.9% 1,000 ML IV SCH ×3 (00:51→11:54)
[2021-01-21 05:54] LABS: Basophils % 0.3 % (0.0-0.8); Eosinophils # 0.1 10*3/uL (0.0-0.87); Eosinophils % 1.4 % (0.00-10.9); Hematocrit 27.4 VOL% (42.0-52.0); Hemoglobin 9.2 GM/DL (14.0-18.0); Lymphocytes # 1.2 10*3/uL (1.4-4.0); Lymphocytes % 12.1 % (21.2-54.2); Mean Corpuscular HGB Conc 33.6 GM/DL (32-36); Mean Corpuscular Volume 82.5 FL (87-102); Mean Platelet Volume 8.9 FL (9.6-12.0); Monocytes % 5.1 % (1.7-12.7); Neutrophils % 80.1 % (38.7-73.9); Platelet Count 365 T/CUMM (130-400); Red Blood Count 3.32 MC/CUMM (3.8-5.5); Red Cell Distribution Width 13.9 % (9.3-17.3); White Blood Count 9.9 T/CUMM (4-12)
[2021-01-21 06:09] LABS: Calcium 8.4 MG/DL (8.5-10.1); Osmolality,Calculated 290.1 MOS/KG (273-304); Potassium 3.7 MMOL/L (3.5-5.1)
[2021-01-21] MEDS: MENTHOL/ZINC OXIDE OINT 71 GM JAR TOP SCH (09:39)
[2021-01-21] MEDS: amLODIPine 5 MG TABLET PO SCH (09:40)
[2021-01-21] MEDS: TAMSULOSIN 0.4 MG CAPSULE PO SCH (09:40)
[2021-01-21] MEDS: FERROUS SULFATE 325 MG TABLET PO SCH (09:40)
[2021-01-21] MEDS: POLYETHYLENE GLYCOL POWDER 17 GM PACK PO SCH (09:40)
[2021-01-21] MEDS: ASPIRIN CHEW 81 MG TABLET PO SCH (09:40)
[2021-01-21] MEDS: HALOPERIDOL 5 MG TABLET PO SCH (09:40)
[2021-01-21] MEDS: INSULIN REGULAR 100 UNIT/ML SUBCUT SCH ×3 (09:40→16:53)
[2021-01-21] MEDS: carvediloL 6.25 MG TABLET PO SCH (09:41)
[2021-01-21 10:53] LABS: Hemoglobin A1 (Alkaline) 97.1 % (96.5-98.5); Hemoglobin A2 (Alkaline) 2.9 % (1.5-3.5)
[2021-01-21 11:41] VITALS: BP 157/82
[2021-01-21] MEDS: cefTRIAXone 1,000 MG in SODIUM CHLORIDE 0.9% 100 ML IV SCH (13:09)
[2021-01-21] MEDS: VANCOMYCIN INJ 1,000 MG in SODIUM CHLORIDE 0.9% 250 ML IV SCH (14:55)
== END 2021-01-21 17:30 | disposition home health service (06) | DRG 711 ==
LOC: EDUNIT# → EDBD → N.EDINP → N.ED → SUATTDRO 02:04 → N.EDINP 04:20 → N.3E 05:01 → SUATTDRO 01-14 15:25
PROVIDERS: ADMIT Internal Medicine; ATTEND Internal Medicine

== ENCOUNTER 2021-01-27 08:56 | Inpatient (IN) ==
[2021-01-27] MEDS ORDERED: ACETAMINOPHEN 325 MG TABLET PO ONE (09:09)
[2021-01-27] MEDS ORDERED: SODIUM CHLORIDE 0.9% 1,000 ML IV STA ×2 (09:09→10:01)
[2021-01-27 09:34] LABS: Basophils % 0.1 % (0.0-0.8); Hematocrit 24.6 VOL% (42.0-52.0); Immature Granulocytes % 1.7 %; Immature Granulocytes Absolute 0.54 #; Lymphocytes % 3.1 % (21.2-54.2); Mean Corpuscular HGB Conc 32.5 GM/DL (32-36); Mean Corpuscular Volume 84.2 FL (87-102); Mean Platelet Volume 9.1 FL (9.6-12.0); Monocytes % 3.9 % (1.7-12.7); Neutrophils % 91.2 % (38.7-73.9); Platelet Count 313 T/CUMM (130-400); Red Blood Count 2.92 MC/CUMM (3.8-5.5); Red Cell Distribution Width 14.3 % (9.3-17.3); White Blood Count 32.4 T/CUMM (4-12)
[2021-01-27 09:46] LABS: INR 1.2; PT Patient Result 13.2 SECS (10.5-12.0)
[2021-01-27 09:54] LABS: Alanine Aminotransferase 14 U/L (16-61); Alkaline Phosphatase 104 U/L (45-117); Aspartate Amino Transferase 13 U/L (0-37); Bilirubin,Total < 0.39 MG/DL (0.2-1.0); Blood Urea Nitrogen 31 MG/DL (7-18); Calcium 8.4 MG/DL (8.5-10.1); Carbon Dioxide 29 MMOL/L (21-32); Estimated Glom Filtration Rate 79 ML/MIN; Glucose 174 MG/DL (74-106); Osmolality,Calculated 287.5 MOS/KG (273-304); Potassium 3.4 MMOL/L (3.5-5.1); Sodium 139 MMOL/L (136-145); Total Protein 6.6 G/DL (6.4-8.2)
[2021-01-27 10:11] LABS: Bacteria,Urine Occasional /HPF (Few); Bilirubin,Urine Negative (Negative); Blood, Urine Large mg/dL (Negative); Glucose,Urine (UA) 50 mg/dL (Negative); Ketones,Urine Negative (Negative); Mucus,Urine Occasional /LPF (Occasional); Nitrite,Urine Negative (Negative); Protein,Urine 100 MG/DL; RBC,Urine 56 /HPF (0-4); Urine Appearance Slightly Hazy (Clear); Urine Color Yellow (Yellow); Urine Specific Gravity 1.014 (1.001-1.035); Urine Urobilinogen < 2.0 EU/DL (0.2-1.0)
[2021-01-27 10:26] LABS: Hypochromasia 1+; Lymphocytes 6 % (20-55); Microcytosis 1+; Platelet Estimate Adequate; Segmented Neutrophils 90 % (50-85); Total Cells Counted 100
[2021-01-27] MEDS ORDERED: PIPERACILLIN/TAZOBACTAM 3,375 MG in SODIUM CHLORIDE 0.9% 100 ML IV STA (10:56)
[2021-01-27] MEDS ORDERED: VANCOMYCIN INJ 1,000 MG in SODIUM CHLORIDE 0.9% 250 ML IV STA (10:56)
[2021-01-27] MEDS ORDERED: CETIRIZINE 10 MG TABLET PO PRN (12:38)
[2021-01-27] MEDS ORDERED: ONDANSETRON 4 MG/2 ML VIAL IV PRN (12:41)
[2021-01-27] MEDS ORDERED: DEXTROSE 50% 25 GM/50 ML VIAL IV PRN ×2 (12:41)
[2021-01-27] MEDS ORDERED: GLUCAGON 1 MG VIAL IM PRN ×2 (12:41)
[2021-01-27] MEDS: ALBUTEROL/IPRATROPIUM 3 ML NEB RESP TX SCH ×2 (13:25→19:40)
[2021-01-27] MEDS: FERROUS SULFATE 325 MG TABLET PO SCH (14:56)
[2021-01-27] MEDS: amLODIPine 10 MG TABLET PO SCH (14:56)
[2021-01-27] MEDS: carvediloL 6.25 MG TABLET PO SCH ×2 (14:56→21:59)
[2021-01-27] MEDS: TAMSULOSIN 0.4 MG CAPSULE PO SCH (14:56)
[2021-01-27] MEDS: ASPIRIN CHEW 81 MG TABLET PO SCH (14:56)
[2021-01-27] MEDS: PANTOPRAZOLE 40 MG TABLET PO SCH (14:56)
[2021-01-27] MEDS: cefTRIAXone 1,000 MG in SODIUM CHLORIDE 0.9% 100 ML IV SCH (14:57)
[2021-01-27] MEDS: POLYETHYLENE GLYCOL POWDER 17 GM PACK PO SCH (14:57)
[2021-01-27] MEDS: POTASSIUM CHLORIDE INJ 20 MEQ in LACTATED RINGERS 1,000 ML IV SCH ×2 (14:57→23:40)
[2021-01-27] MEDS: INSULIN LISPRO 100 UNIT/ML SUBCUT SCH ×2 (16:58→20:10)
[2021-01-27] MEDS: ACETAMINOPHEN 325 MG TABLET PO PRN (17:19)
[2021-01-27] MEDS: HALOPERIDOL 5 MG TABLET PO SCH (21:47)
[2021-01-28] MEDS: ALBUTEROL/IPRATROPIUM 3 ML NEB RESP TX SCH ×4 (00:04→19:43)
[2021-01-28] MEDS: ACETAMINOPHEN 325 MG TABLET PO PRN ×3 (02:18→18:25)
[2021-01-28 05:24] LABS: Basophils % 0.1 % (0.0-0.8); Eosinophils % 0.1 % (0.00-10.9); Hematocrit 24.9 VOL% (42.0-52.0); Immature Granulocytes % 1.6 %; Immature Granulocytes Absolute 0.45 #; Lymphocytes # 1.3 10*3/uL (1.4-4.0); Lymphocytes % 4.8 % (21.2-54.2); Mean Corpuscular HGB Conc 32.1 GM/DL (32-36); Mean Corpuscular Volume 85.3 FL (87-102); Mean Platelet Volume 9.3 FL (9.6-12.0); Monocytes % 4.2 % (1.7-12.7); Neutrophils % 89.2 % (38.7-73.9); Platelet Count 287 T/CUMM (130-400); Red Blood Count 2.92 MC/CUMM (3.8-5.5); Red Cell Distribution Width 14.2 % (9.3-17.3); White Blood Count 27.6 T/CUMM (4-12)
[2021-01-28 05:46] LABS: Calcium 8.3 MG/DL (8.5-10.1); Osmolality,Calculated 287.7 MOS/KG (273-304); Potassium 3.8 MMOL/L (3.5-5.1)
[2021-01-28 05:51] LABS: Band Neutrophils 2 % (0-10); Lymphocytes 4 % (20-55); Platelet Estimate Normal; Segmented Neutrophils 90 % (50-85); Total Cells Counted 100
[2021-01-28 05:52] LABS: Hypochromasia Slight
[2021-01-28] MEDS: INSULIN LISPRO 100 UNIT/ML SUBCUT SCH ×4 (09:41→21:59)
[2021-01-28] MEDS: cefTRIAXone 1,000 MG in SODIUM CHLORIDE 0.9% 100 ML IV SCH (09:41)
[2021-01-28] MEDS: FERROUS SULFATE 325 MG TABLET PO SCH (09:42)
[2021-01-28] MEDS: ASPIRIN CHEW 81 MG TABLET PO SCH (09:42)
[2021-01-28] MEDS: TAMSULOSIN 0.4 MG CAPSULE PO SCH (09:42)
[2021-01-28] MEDS: POLYETHYLENE GLYCOL POWDER 17 GM PACK PO SCH (09:42)
[2021-01-28] MEDS: HALOPERIDOL 5 MG TABLET PO SCH ×3 (09:42→21:26)
[2021-01-28] MEDS: PANTOPRAZOLE 40 MG TABLET PO SCH (09:42)
[2021-01-28] MEDS: amLODIPine 10 MG TABLET PO SCH (09:42)
[2021-01-28] MEDS: carvediloL 6.25 MG TABLET PO SCH ×2 (09:42→21:24)
[2021-01-28] MEDS ORDERED: MORPHINE 4 MG/1 ML VIAL IV PRN (09:43)
[2021-01-28] MEDS ORDERED: LACTULOSE 20 GM/30 ML UDCUP PO PRN (09:46)
[2021-01-28] MEDS: POTASSIUM CHLORIDE INJ 20 MEQ in LACTATED RINGERS 1,000 ML IV SCH (10:52)
[2021-01-29] MEDS: ALBUTEROL/IPRATROPIUM 3 ML NEB RESP TX SCH ×4 (00:17→20:35)
[2021-01-29] MEDS: POTASSIUM CHLORIDE INJ 20 MEQ in LACTATED RINGERS 1,000 ML IV SCH (00:53)
[2021-01-29] MEDS: ACETAMINOPHEN 325 MG TABLET PO PRN ×2 (01:01→12:46)
[2021-01-29 05:35] LABS: Basophils % 0.1 % (0.0-0.8); Eosinophils # 0.1 10*3/uL (0.0-0.87); Eosinophils % 0.3 % (0.00-10.9); Hemoglobin 8.7 GM/DL (14.0-18.0); Immature Granulocytes % 1.7 %; Immature Granulocytes Absolute 0.34 #; Lymphocytes # 1.3 10*3/uL (1.4-4.0); Lymphocytes % 6.4 % (21.2-54.2); Mean Corpuscular HGB Conc 32.2 GM/DL (32-36); Mean Corpuscular Volume 84.9 FL (87-102); Mean Platelet Volume 9.6 FL (9.6-12.0); Monocytes % 5.6 % (1.7-12.7); Neutrophils % 85.9 % (38.7-73.9); Platelet Count 270 T/CUMM (130-400); Red Blood Count 3.18 MC/CUMM (3.8-5.5); Red Cell Distribution Width 14.1 % (9.3-17.3); White Blood Count 20.1 T/CUMM (4-12)
[2021-01-29 05:56] LABS: Hypochromasia 1+
[2021-01-29 05:57] LABS: Microcytosis 1+
[2021-01-29 05:58] LABS: Platelet Estimate Normal
[2021-01-29 06:25] LABS: Calcium 8.4 MG/DL (8.5-10.1); Osmolality,Calculated 283.8 MOS/KG (273-304); Potassium 3.9 MMOL/L (3.5-5.1)
[2021-01-29] MEDS ORDERED: MAGNESIUM SULF RIDER 2 GM/50 ML PREMIX IV ONE (09:00)
[2021-01-29] MEDS: PANTOPRAZOLE 40 MG TABLET PO SCH (09:20)
[2021-01-29] MEDS: HALOPERIDOL 5 MG TABLET PO SCH ×2 (09:20→21:56)
[2021-01-29] MEDS: amLODIPine 10 MG TABLET PO SCH (09:20)
[2021-01-29] MEDS: cefTRIAXone 1,000 MG in SODIUM CHLORIDE 0.9% 100 ML IV SCH (09:20)
[2021-01-29] MEDS: POLYETHYLENE GLYCOL POWDER 17 GM PACK PO SCH (09:20)
[2021-01-29] MEDS: INSULIN LISPRO 100 UNIT/ML SUBCUT SCH ×5 (09:20→22:34)
[2021-01-29] MEDS: ASPIRIN CHEW 81 MG TABLET PO SCH (09:20)
[2021-01-29] MEDS: carvediloL 6.25 MG TABLET PO SCH ×2 (09:20→21:56)
[2021-01-29] MEDS: FERROUS SULFATE 325 MG TABLET PO SCH (09:20)
[2021-01-29] MEDS: TAMSULOSIN 0.4 MG CAPSULE PO SCH (09:20)
[2021-01-29] MEDS ORDERED: VANCOMYCIN INJ 1,250 MG in SODIUM CHLORIDE 0.9% 250 ML IV SCH (10:30)
[2021-01-29] MEDS ORDERED: FUROSEMIDE 40 MG TABLET PO SCH (15:00)
[2021-01-29] MEDS: FUROSEMIDE 40 MG/4 ML VIAL IV SCH (15:47)
[2021-01-29] MEDS: VANCOMYCIN INJ 1,250 MG in SODIUM CHLORIDE 0.9% 250 ML IV SCH (15:50)
[2021-01-29] MEDS: LACTULOSE 20 GM/30 ML UDCUP PO SCH ×2 (16:04→20:16)
[2021-01-30] MEDS: ALBUTEROL/IPRATROPIUM 3 ML NEB RESP TX SCH ×4 (01:30→20:32)
[2021-01-30] MEDS: LACTULOSE 20 GM/30 ML UDCUP PO SCH ×4 (04:25→21:26)
[2021-01-30 05:20] LABS: Basophils % 0.2 % (0.0-0.8); Eosinophils # 0.1 10*3/uL (0.0-0.87); Eosinophils % 0.8 % (0.00-10.9); Hematocrit 26.2 VOL% (42.0-52.0); Hemoglobin 8.3 GM/DL (14.0-18.0); Immature Granulocytes % 1.7 %; Immature Granulocytes Absolute 0.25 #; Lymphocytes # 1.2 10*3/uL (1.4-4.0); Mean Corpuscular HGB Conc 31.7 GM/DL (32-36); Mean Corpuscular Volume 85.1 FL (87-102); Mean Platelet Volume 9.4 FL (9.6-12.0); Monocytes % 7.5 % (1.7-12.7); Neutrophils % 81.8 % (38.7-73.9); Platelet Count 287 T/CUMM (130-400); Red Blood Count 3.08 MC/CUMM (3.8-5.5); Red Cell Distribution Width 14.1 % (9.3-17.3); White Blood Count 14.8 T/CUMM (4-12)
[2021-01-30 05:47] LABS: Osmolality,Calculated 281.7 MOS/KG (273-304); Potassium 3.9 MMOL/L (3.5-5.1)
[2021-01-30] MEDS: VANCOMYCIN INJ 1,250 MG in SODIUM CHLORIDE 0.9% 250 ML IV SCH ×2 (05:58→23:18)
[2021-01-30] MEDS: INSULIN LISPRO 100 UNIT/ML SUBCUT SCH ×4 (09:30→21:26)
[2021-01-30] MEDS: FUROSEMIDE 40 MG/4 ML VIAL IV SCH (09:30)
[2021-01-30] MEDS: cefTRIAXone 1,000 MG in SODIUM CHLORIDE 0.9% 100 ML IV SCH (09:30)
[2021-01-30] MEDS: carvediloL 6.25 MG TABLET PO SCH ×2 (09:31→21:26)
[2021-01-30] MEDS: PANTOPRAZOLE 40 MG TABLET PO SCH (09:37)
[2021-01-30] MEDS: FERROUS SULFATE 325 MG TABLET PO SCH (09:37)
[2021-01-30] MEDS: TAMSULOSIN 0.4 MG CAPSULE PO SCH (09:37)
[2021-01-30] MEDS: ASPIRIN CHEW 81 MG TABLET PO SCH (09:37)
[2021-01-30] MEDS: HALOPERIDOL 5 MG TABLET PO SCH ×2 (09:37→21:26)
[2021-01-30] MEDS: amLODIPine 10 MG TABLET PO SCH (09:38)
[2021-01-30] MEDS ORDERED: PSEUDOEPHEDRINE 30 MG TABLET PO PRN (10:18)
[2021-01-30] MEDS: ENOXAPARIN 40 MG/0.4 ML SYRINGE SUBCUT SCH (16:03)
[2021-01-30] MEDS: ACETAMINOPHEN 325 MG TABLET PO PRN (18:13)
[2021-01-31] MEDS: ALBUTEROL/IPRATROPIUM 3 ML NEB RESP TX SCH ×4 (00:56→19:43)
[2021-01-31] MEDS: LACTULOSE 20 GM/30 ML UDCUP PO SCH ×4 (02:57→21:22)
[2021-01-31 07:14] LABS: Basophils % 0.2 % (0.0-0.8); Eosinophils # 0.2 10*3/uL (0.0-0.87); Eosinophils % 1.4 % (0.00-10.9); Hematocrit 25.8 VOL% (42.0-52.0); Hemoglobin 8.2 GM/DL (14.0-18.0); Immature Granulocytes % 0.5 %; Immature Granulocytes Absolute 0.05 #; Lymphocytes % 9.5 % (21.2-54.2); Mean Corpuscular HGB Conc 31.8 GM/DL (32-36); Mean Corpuscular Volume 85.1 FL (87-102); Mean Platelet Volume 9.6 FL (9.6-12.0); Monocytes % 9.3 % (1.7-12.7); Neutrophils % 79.1 % (38.7-73.9); Platelet Count 276 T/CUMM (130-400); Red Blood Count 3.03 MC/CUMM (3.8-5.5); Red Cell Distribution Width 13.9 % (9.3-17.3); White Blood Count 10.9 T/CUMM (4-12)
[2021-01-31 07:37] LABS: Calcium 8.1 MG/DL (8.5-10.1); Osmolality,Calculated 285.5 MOS/KG (273-304); Potassium 4.1 MMOL/L (3.5-5.1)
[2021-01-31] MEDS: amLODIPine 10 MG TABLET PO SCH ×2 (08:43→09:14)
[2021-01-31] MEDS: PANTOPRAZOLE 40 MG TABLET PO SCH ×2 (08:43→09:14)
[2021-01-31] MEDS: carvediloL 6.25 MG TABLET PO SCH ×3 (08:43→21:22)
[2021-01-31] MEDS: TAMSULOSIN 0.4 MG CAPSULE PO SCH ×2 (08:43→09:14)
[2021-01-31] MEDS: FERROUS SULFATE 325 MG TABLET PO SCH ×2 (08:44→09:13)
[2021-01-31] MEDS: ASPIRIN CHEW 81 MG TABLET PO SCH ×2 (08:44→09:13)
[2021-01-31] MEDS: cefTRIAXone 1,000 MG in SODIUM CHLORIDE 0.9% 100 ML IV SCH ×2 (08:44→09:14)
[2021-01-31] MEDS: HALOPERIDOL 5 MG TABLET PO SCH ×3 (08:44→21:22)
[2021-01-31] MEDS: FUROSEMIDE 40 MG/4 ML VIAL IV SCH (08:45)
[2021-01-31] MEDS: INSULIN LISPRO 100 UNIT/ML SUBCUT SCH ×4 (08:45→21:21)
[2021-01-31] MEDS: ENOXAPARIN 40 MG/0.4 ML SYRINGE SUBCUT SCH (13:08)
[2021-01-31 13:19] LABS: Myeloperoxidase Antibody < 0.2 U
[2021-01-31] MEDS: LEVOFLOXACIN INJ 750 MG/150 ML PREMIX IV SCH (14:09)
[2021-02-01] MEDS: ALBUTEROL/IPRATROPIUM 3 ML NEB RESP TX SCH ×4 (00:57→19:26)
[2021-02-01] MEDS: LACTULOSE 20 GM/30 ML UDCUP PO SCH ×4 (02:54→21:15)
[2021-02-01 05:42] LABS: Basophils % 0.3 % (0.0-0.8); Eosinophils # 0.2 10*3/uL (0.0-0.87); Eosinophils % 1.7 % (0.00-10.9); Hematocrit 24.8 VOL% (42.0-52.0); Immature Granulocytes % 0.7 %; Immature Granulocytes Absolute 0.07 #; Lymphocytes % 10.7 % (21.2-54.2); Mean Corpuscular HGB Conc 32.3 GM/DL (32-36); Mean Corpuscular Volume 83.2 FL (87-102); Mean Platelet Volume 10.8 FL (9.6-12.0); Monocytes % 8.6 % (1.7-12.7); Platelet Count 205 T/CUMM (130-400); Red Blood Count 2.98 MC/CUMM (3.8-5.5); Red Cell Distribution Width 13.8 % (9.3-17.3); White Blood Count 9.6 T/CUMM (4-12)
[2021-02-01 05:50] LABS: INR 1.1; PT Patient Result 12.5 SECS (10.5-12.0)
[2021-02-01 06:12] LABS: Calcium 8.3 MG/DL (8.5-10.1); Osmolality,Calculated 280.5 MOS/KG (273-304); Potassium 4.2 MMOL/L (3.5-5.1)
[2021-02-01 06:32] LABS: Hypochromasia 1+; Microcytosis 1+
[2021-02-01] MEDS: FUROSEMIDE 40 MG/4 ML VIAL IV SCH (08:36)
[2021-02-01] MEDS: HALOPERIDOL 5 MG TABLET PO SCH ×2 (08:37→21:14)
[2021-02-01] MEDS: amLODIPine 10 MG TABLET PO SCH (08:37)
[2021-02-01] MEDS: FERROUS SULFATE 325 MG TABLET PO SCH (08:37)
[2021-02-01] MEDS: PANTOPRAZOLE 40 MG TABLET PO SCH (08:37)
[2021-02-01] MEDS: TAMSULOSIN 0.4 MG CAPSULE PO SCH (08:37)
[2021-02-01] MEDS: carvediloL 6.25 MG TABLET PO SCH ×2 (08:37→21:14)
[2021-02-01] MEDS: INSULIN LISPRO 100 UNIT/ML SUBCUT SCH ×4 (08:37→21:16)
[2021-02-01] MEDS: ASPIRIN CHEW 81 MG TABLET PO SCH (09:15)
[2021-02-01 10:22] LABS: Amylase,Body Fluid 13 U/L; Glucose,Pleural Fluid 178 MG/DL; LDH,Body Fluid 117 U/L; Total Protein,Body Fluid < 2.0 G/DL
[2021-02-01 10:27] LABS: Lymphocytes,Pleural Fluid 18 %; Monocytes,Pleural Fluid 14 %; Neutrophils,Pleural Fluid 68 %
[2021-02-01 10:35] LABS: RBC,Pleural Fluid 47 T/CUMM
[2021-02-01 14:02] LABS: Antinuclear Ab, S 0.3 U
[2021-02-01] MEDS: LEVOFLOXACIN INJ 750 MG/150 ML PREMIX IV SCH (14:32)
[2021-02-02] MEDS: ALBUTEROL/IPRATROPIUM 3 ML NEB RESP TX SCH ×4 (00:04→19:09)
[2021-02-02] MEDS: LACTULOSE 20 GM/30 ML UDCUP PO SCH ×4 (02:44→20:59)
[2021-02-02 06:16] LABS: Basophils % 0.3 % (0.0-0.8); Eosinophils # 0.2 10*3/uL (0.0-0.87); Eosinophils % 1.6 % (0.00-10.9); Hematocrit 26.2 VOL% (42.0-52.0); Hemoglobin 8.4 GM/DL (14.0-18.0); Immature Granulocytes % 1.5 %; Immature Granulocytes Absolute 0.14 #; Lymphocytes # 1.3 10*3/uL (1.4-4.0); Lymphocytes % 13.5 % (21.2-54.2); Mean Corpuscular HGB Conc 32.1 GM/DL (32-36); Mean Corpuscular Volume 84.5 FL (87-102); Mean Platelet Volume 9.7 FL (9.6-12.0); Neutrophils % 75.1 % (38.7-73.9); Platelet Count 299 T/CUMM (130-400); Red Cell Distribution Width 13.8 % (9.3-17.3); White Blood Count 9.3 T/CUMM (4-12)
[2021-02-02 06:47] LABS: Calcium 8.3 MG/DL (8.5-10.1); Osmolality,Calculated 280.7 MOS/KG (273-304); Potassium 3.8 MMOL/L (3.5-5.1)
[2021-02-02] MEDS ORDERED: MAGNESIUM SULF RIDER 2 GM/50 ML PREMIX IV ONE (08:03)
[2021-02-02] MEDS: carvediloL 6.25 MG TABLET PO SCH ×2 (08:46→20:59)
[2021-02-02] MEDS: PANTOPRAZOLE 40 MG TABLET PO SCH (08:46)
[2021-02-02] MEDS: ASPIRIN CHEW 81 MG TABLET PO SCH (08:46)
[2021-02-02] MEDS: FERROUS SULFATE 325 MG TABLET PO SCH (08:46)
[2021-02-02] MEDS: TAMSULOSIN 0.4 MG CAPSULE PO SCH (08:46)
[2021-02-02] MEDS: HALOPERIDOL 5 MG TABLET PO SCH ×2 (08:46→20:59)
[2021-02-02] MEDS: amLODIPine 10 MG TABLET PO SCH (08:46)
[2021-02-02] MEDS: INSULIN LISPRO 100 UNIT/ML SUBCUT SCH ×5 (08:47→21:02)
[2021-02-02] MEDS: FUROSEMIDE 40 MG/4 ML VIAL IV SCH (08:47)
[2021-02-02] MEDS: LEVOFLOXACIN INJ 750 MG/150 ML PREMIX IV SCH (13:06)
[2021-02-03] MEDS: ALBUTEROL/IPRATROPIUM 3 ML NEB RESP TX SCH ×4 (00:05→19:46)
[2021-02-03] MEDS: ACETAMINOPHEN 325 MG TABLET PO PRN ×2 (00:31→20:33)
[2021-02-03] MEDS: LACTULOSE 20 GM/30 ML UDCUP PO SCH ×4 (03:12→20:32)
[2021-02-03 06:11] LABS: Basophils % 0.4 % (0.0-0.8); Eosinophils # 0.2 10*3/uL (0.0-0.87); Eosinophils % 2.2 % (0.00-10.9); Hematocrit 24.7 VOL% (42.0-52.0); Hemoglobin 8.2 GM/DL (14.0-18.0); Immature Granulocytes % 1.6 %; Immature Granulocytes Absolute 0.13 #; Lymphocytes # 1.1 10*3/uL (1.4-4.0); Lymphocytes % 13.6 % (21.2-54.2); Mean Corpuscular HGB Conc 33.2 GM/DL (32-36); Mean Corpuscular Volume 82.3 FL (87-102); Mean Platelet Volume 9.8 FL (9.6-12.0); Monocytes % 8.9 % (1.7-12.7); Neutrophils % 73.3 % (38.7-73.9); Platelet Count 308 T/CUMM (130-400); Red Cell Distribution Width 13.8 % (9.3-17.3); White Blood Count 8.3 T/CUMM (4-12)
[2021-02-03 06:20] LABS: Calcium 8.2 MG/DL (8.5-10.1); Osmolality,Calculated 286.4 MOS/KG (273-304); Potassium 3.7 MMOL/L (3.5-5.1)
[2021-02-03 06:38] LABS: Platelet Estimate Normal
[2021-02-03 06:39] LABS: Anisocytosis 2+
[2021-02-03] MEDS: TAMSULOSIN 0.4 MG CAPSULE PO SCH (08:56)
[2021-02-03] MEDS: amLODIPine 10 MG TABLET PO SCH (08:56)
[2021-02-03] MEDS: FUROSEMIDE 40 MG/4 ML VIAL IV SCH (08:56)
[2021-02-03] MEDS: HALOPERIDOL 5 MG TABLET PO SCH ×2 (08:56→20:33)
[2021-02-03] MEDS: carvediloL 6.25 MG TABLET PO SCH ×2 (08:56→20:33)
[2021-02-03] MEDS: FERROUS SULFATE 325 MG TABLET PO SCH (08:56)
[2021-02-03] MEDS: ASPIRIN CHEW 81 MG TABLET PO SCH (08:56)
[2021-02-03] MEDS: INSULIN LISPRO 100 UNIT/ML SUBCUT SCH ×4 (08:56→20:34)
[2021-02-03] MEDS: PANTOPRAZOLE 40 MG TABLET PO SCH (08:56)
[2021-02-03] MEDS: ENOXAPARIN 40 MG/0.4 ML SYRINGE SUBCUT SCH (13:52)
[2021-02-03] MEDS: LEVOFLOXACIN INJ 750 MG/150 ML PREMIX IV SCH (13:52)
[2021-02-04] MEDS: ALBUTEROL/IPRATROPIUM 3 ML NEB RESP TX SCH ×4 (01:25→19:07)
[2021-02-04] MEDS: LACTULOSE 20 GM/30 ML UDCUP PO SCH ×5 (03:30→21:41)
[2021-02-04 05:28] LABS: Basophils % 0.4 % (0.0-0.8); Eosinophils # 0.2 10*3/uL (0.0-0.87); Eosinophils % 2.5 % (0.00-10.9); Hematocrit 25.5 VOL% (42.0-52.0); Immature Granulocytes % 1.9 %; Immature Granulocytes Absolute 0.15 #; Lymphocytes # 1.3 10*3/uL (1.4-4.0); Mean Corpuscular HGB Conc 31.4 GM/DL (32-36); Mean Platelet Volume 9.8 FL (9.6-12.0); Monocytes % 8.6 % (1.7-12.7); Neutrophils % 70.6 % (38.7-73.9); Platelet Count 328 T/CUMM (130-400); Red Cell Distribution Width 13.7 % (9.3-17.3); White Blood Count 7.9 T/CUMM (4-12)
[2021-02-04 05:54] LABS: Calcium 8.1 MG/DL (8.5-10.1); Osmolality,Calculated 284.3 MOS/KG (273-304); Potassium 3.7 MMOL/L (3.5-5.1)
[2021-02-04] MEDS: INSULIN LISPRO 100 UNIT/ML SUBCUT SCH ×4 (09:19→21:41)
[2021-02-04] MEDS: FUROSEMIDE 40 MG/4 ML VIAL IV SCH (09:19)
[2021-02-04] MEDS: PANTOPRAZOLE 40 MG TABLET PO SCH (09:20)
[2021-02-04] MEDS: FERROUS SULFATE 325 MG TABLET PO SCH (09:20)
[2021-02-04] MEDS: ASPIRIN CHEW 81 MG TABLET PO SCH (09:20)
[2021-02-04] MEDS: TAMSULOSIN 0.4 MG CAPSULE PO SCH (09:20)
[2021-02-04] MEDS: HALOPERIDOL 5 MG TABLET PO SCH ×2 (09:20→21:41)
[2021-02-04] MEDS: amLODIPine 10 MG TABLET PO SCH (09:21)
[2021-02-04] MEDS: carvediloL 6.25 MG TABLET PO SCH ×2 (09:21→21:41)
[2021-02-04] MEDS: ENOXAPARIN 40 MG/0.4 ML SYRINGE SUBCUT SCH (15:55)
[2021-02-04] MEDS: LEVOFLOXACIN INJ 750 MG/150 ML PREMIX IV SCH (15:56)
[2021-02-05] MEDS: LACTULOSE 20 GM/30 ML UDCUP PO SCH ×4 (03:43→15:33)
[2021-02-05] MEDS: ALBUTEROL/IPRATROPIUM 3 ML NEB RESP TX SCH ×2 (07:29)
[2021-02-05] MEDS: INSULIN LISPRO 100 UNIT/ML SUBCUT SCH ×3 (08:38→17:24)
[2021-02-05] MEDS: PANTOPRAZOLE 40 MG TABLET PO SCH (08:39)
[2021-02-05] MEDS: HALOPERIDOL 5 MG TABLET PO SCH (08:39)
[2021-02-05] MEDS: FUROSEMIDE 40 MG/4 ML VIAL IV SCH (08:39)
[2021-02-05] MEDS: TAMSULOSIN 0.4 MG CAPSULE PO SCH (08:39)
[2021-02-05] MEDS: amLODIPine 10 MG TABLET PO SCH (08:39)
[2021-02-05] MEDS: FERROUS SULFATE 325 MG TABLET PO SCH (08:39)
[2021-02-05] MEDS: carvediloL 6.25 MG TABLET PO SCH (08:39)
[2021-02-05] MEDS: ASPIRIN CHEW 81 MG TABLET PO SCH (08:39)
[2021-02-05] MEDS: LEVOFLOXACIN INJ 750 MG/150 ML PREMIX IV SCH (15:33)
[2021-02-05] MEDS: ENOXAPARIN 40 MG/0.4 ML SYRINGE SUBCUT SCH (15:33)
[2021-02-05 17:16] VITALS: BP 150/79
== END 2021-02-05 19:30 | disposition home health service (06) | DRG 466 ==
LOC: N.ED 08:56 → SUATTDRO 12:41 → N.EDINP 12:41 → N.5E 13:15
PROVIDERS: ADMIT Phlebology; ATTEND Internal Medicine
PROC: IRTHORA (2021-02-01 09:05)

== ENCOUNTER 2021-03-31 06:32 | Observation (INO) ==
[2021-03-31 08:04] LABS: Basophils % 0.3 % (0.0-0.8); Eosinophils # 0.2 10*3/uL (0.0-0.87); Eosinophils % 2.1 % (0.00-10.9); Hematocrit 28.9 VOL% (42.0-52.0); Hemoglobin 9.8 GM/DL (14.0-18.0); Immature Granulocytes % 0.3 %; Immature Granulocytes Absolute 0.02 #; Lymphocytes # 1.2 10*3/uL (1.4-4.0); Mean Corpuscular HGB Conc 33.9 GM/DL (32-36); Mean Corpuscular Volume 82.6 FL (87-102); Mean Platelet Volume 9.9 FL (9.6-12.0); Monocytes % 7.1 % (1.7-12.7); Neutrophils % 73.2 % (38.7-73.9); Platelet Count 257 T/CUMM (130-400); Red Cell Distribution Width 14.8 % (9.3-17.3); White Blood Count 7.2 T/CUMM (4-12)
[2021-03-31 08:22] LABS: Blood Urea Nitrogen 18 MG/DL (7-18); Calcium 8.7 MG/DL (8.5-10.1); Carbon Dioxide 27 MMOL/L (21-32); Estimated Glom Filtration Rate 109 ML/MIN; Glucose 103 MG/DL (74-106); Sodium 143 MMOL/L (136-145)
[2021-03-31 08:30] LABS: Barbiturates Screen,Urine Negative (Negative); Benzodiazepines Screen,Urine Negative (Negative); Cannabinoid Screen,Urine Negative (Negative); Opiate Screen,Urine Negative (Negative); Phencyclidine Screen,Urine Negative (Negative)
[2021-03-31] MEDS ORDERED: ONDANSETRON 4 MG/2 ML VIAL IV PRN (11:29)
[2021-03-31] MEDS ORDERED: DOCUSATE SODIUM 100 MG CAPSULE PO PRN (11:29)
[2021-03-31] MEDS ORDERED: DEXTROSE 50% 25 GM/50 ML VIAL IV PRN (11:29)
[2021-03-31] MEDS ORDERED: GLUCAGON 1 MG VIAL IM PRN (11:29)
[2021-03-31] MEDS ORDERED: ACETAMINOPHEN 325 MG TABLET PO PRN (11:29)
[2021-03-31] MEDS ORDERED: ZALEPLON 5 MG CAPSULE PO PRN (11:31)
[2021-03-31] MEDS ORDERED: LORazepam 2 MG/1 ML VIAL IV PRN (11:33)
[2021-03-31] MEDS: ENOXAPARIN 40 MG/0.4 ML SYRINGE SUBCUT SCH (12:04)
[2021-03-31] MEDS: INSULIN REGULAR 100 UNIT/ML SUBCUT SCH (18:10)
[2021-03-31] MEDS: TAMSULOSIN 0.4 MG CAPSULE PO SCH (18:14)
[2021-03-31] MEDS: carvediloL 6.25 MG TABLET PO SCH ×2 (18:14→23:58)
[2021-03-31] MEDS: amLODIPine 10 MG TABLET PO SCH (18:15)
[2021-03-31] MEDS: DIVALPROEX 500 MG TABLET PO SCH ×2 (18:15→23:58)
[2021-04-01] MEDS: INSULIN ASPART PROTAMINE/ASPART 70/30 100 UNIT/ML SUBCUT SCH ×3 (00:27→18:31)
[2021-04-01 05:31] LABS: Basophils % 0.4 % (0.0-0.8); Eosinophils # 0.1 10*3/uL (0.0-0.87); Eosinophils % 1.7 % (0.00-10.9); Hematocrit 28.1 VOL% (42.0-52.0); Hemoglobin 9.5 GM/DL (14.0-18.0); Immature Granulocytes % 0.3 %; Immature Granulocytes Absolute 0.02 #; Lymphocytes # 1.2 10*3/uL (1.4-4.0); Lymphocytes % 16.6 % (21.2-54.2); Mean Corpuscular HGB Conc 33.8 GM/DL (32-36); Mean Corpuscular Volume 83.6 FL (87-102); Monocytes % 8.4 % (1.7-12.7); Neutrophils % 72.6 % (38.7-73.9); Platelet Count 238 T/CUMM (130-400); Red Blood Count 3.36 MC/CUMM (3.8-5.5); Red Cell Distribution Width 14.5 % (9.3-17.3); White Blood Count 7.5 T/CUMM (4-12)
[2021-04-01 05:52] LABS: Calcium 8.8 MG/DL (8.5-10.1); Osmolality,Calculated 284.5 MOS/KG (273-304); Potassium 3.8 MMOL/L (3.5-5.1)
[2021-04-01] MEDS: DIVALPROEX 500 MG TABLET PO SCH ×3 (09:13→20:27)
[2021-04-01] MEDS: carvediloL 6.25 MG TABLET PO SCH (09:13)
[2021-04-01] MEDS: amLODIPine 10 MG TABLET PO SCH (09:13)
[2021-04-01] MEDS: TAMSULOSIN 0.4 MG CAPSULE PO SCH (09:13)
[2021-04-01] MEDS: INSULIN REGULAR 100 UNIT/ML SUBCUT SCH ×2 (09:14→18:29)
[2021-04-01] MEDS: ENOXAPARIN 40 MG/0.4 ML SYRINGE SUBCUT SCH (11:07)
[2021-04-01] MEDS: hydrALAZINE 25 MG TABLET PO SCH ×3 (13:44→20:27)
[2021-04-01] MEDS ORDERED: CETIRIZINE 10 MG TABLET PO PRN (15:32)
[2021-04-01] MEDS ORDERED: DEXTROSE 50% 25 GM/50 ML VIAL IV PRN (15:49)
[2021-04-01] MEDS: carvediloL 12.5 MG TABLET PO SCH (18:32)
[2021-04-01] MEDS: HALOPERIDOL 5 MG TABLET PO SCH (20:27)
[2021-04-02 04:56] LABS: Basophils % 0.3 % (0.0-0.8); Eosinophils # 0.1 10*3/uL (0.0-0.87); Eosinophils % 2.3 % (0.00-10.9); Hematocrit 27.4 VOL% (42.0-52.0); Hemoglobin 9.2 GM/DL (14.0-18.0); Immature Granulocytes % 0.5 %; Immature Granulocytes Absolute 0.03 #; Lymphocytes # 1.6 10*3/uL (1.4-4.0); Lymphocytes % 26.7 % (21.2-54.2); Mean Corpuscular HGB Conc 33.6 GM/DL (32-36); Mean Corpuscular Volume 82.5 FL (87-102); Monocytes % 9.4 % (1.7-12.7); Neutrophils % 60.8 % (38.7-73.9); Platelet Count 238 T/CUMM (130-400); Red Blood Count 3.32 MC/CUMM (3.8-5.5); Red Cell Distribution Width 14.6 % (9.3-17.3); White Blood Count 6.2 T/CUMM (4-12)
[2021-04-02 05:15] LABS: Calcium 8.4 MG/DL (8.5-10.1); Osmolality,Calculated 284.3 MOS/KG (273-304); Potassium 3.6 MMOL/L (3.5-5.1)
[2021-04-02] MEDS ORDERED: ASPIRIN CHEW 81 MG TABLET PO SCH (09:00)
[2021-04-02] MEDS ORDERED: FERROUS SULFATE 325 MG TABLET PO SCH (09:00)
[2021-04-02] MEDS ORDERED: DIVALPROEX 500 MG TABLET PO SCH (09:00)
[2021-04-02] MEDS: INSULIN REGULAR 100 UNIT/ML SUBCUT SCH (09:37)
[2021-04-02] MEDS: TAMSULOSIN 0.4 MG CAPSULE PO SCH (09:39)
[2021-04-02] MEDS: amLODIPine 10 MG TABLET PO SCH (09:40)
[2021-04-02] MEDS: hydrALAZINE 25 MG TABLET PO SCH (09:40)
[2021-04-02] MEDS: carvediloL 12.5 MG TABLET PO SCH (09:40)
[2021-04-02] MEDS: HALOPERIDOL 5 MG TABLET PO SCH (09:44)
[2021-04-02] MEDS: INSULIN ASPART PROTAMINE/ASPART 70/30 100 UNIT/ML SUBCUT SCH (09:47)
[2021-04-02 12:32] VITALS: BP 158/89
[2021-04-02] MEDS: ENOXAPARIN 40 MG/0.4 ML SYRINGE SUBCUT SCH (13:28)
== END 2021-04-02 13:45 | disposition home or self-care (01) ==
LOC: EDUNIT# → EDBD → N.ED 06:32 → SUATTDRO 10:45 → INTOOBSV 10:45 → N.EDINP 10:45 → N.TELES 22:40
PROVIDERS: ADMIT Hospitalist; ATTEND Internal Medicine Geriatric Medicine

== ENCOUNTER 2021-05-14 13:48 | Inpatient (IN) ==
[2021-05-14 16:16] LABS: Bacteria,Urine Many /HPF (Few); Bilirubin,Urine Negative (Negative); Blood, Urine Moderate mg/dL (Negative); Glucose,Urine (UA) Negative (Negative); Ketones,Urine Negative (Negative); Mucus,Urine Occasional /LPF (Occasional); Nitrite,Urine Negative (Negative); Protein,Urine >=500 MG/DL; RBC,Urine 3 /HPF (0-4); Squamous Epithelial Cell,Urine Occasional /HPF (0-10); Urine Appearance Slightly Hazy (Clear); Urine Color Yellow (Yellow); Urine Specific Gravity 1.012 (1.001-1.035); Urine Urobilinogen < 2.0 EU/DL (0.2-1.0)
[2021-05-14 16:23] LABS: Barbiturates Screen,Urine Negative (Negative); Benzodiazepines Screen,Urine Negative (Negative); Cannabinoid Screen,Urine Negative (Negative); Opiate Screen,Urine Positive (Negative); Phencyclidine Screen,Urine Negative (Negative)
[2021-05-14 16:37] LABS: Alanine Aminotransferase < 6 U/L (16-61); Albumin 2.3 G/DL (3.4-5.0); Alkaline Phosphatase 72 U/L (45-117); Aspartate Amino Transferase 14 U/L (0-37); Bilirubin,Total < 0.39 MG/DL (0.20-1.00); Blood Urea Nitrogen 32 MG/DL (7-18); Calcium 7.9 MG/DL (8.5-10.1); Carbon Dioxide 27 MMOL/L (21-32); Estimated Glom Filtration Rate 63 ML/MIN; Glucose 146 MG/DL (74-106); Osmolality,Calculated 295.8 MOS/KG (273-304); Sodium 144 MMOL/L (136-145)
[2021-05-14 18:15] LABS: Basophils % 0.3 % (0.0-0.8); Eosinophils # 0.1 10*3/uL (0.0-0.87); Eosinophils % 1.7 % (0.00-10.9); Hematocrit 25.6 VOL% (42.0-52.0); Hemoglobin 8.3 GM/DL (14.0-18.0); Immature Granulocytes % 0.9 %; Immature Granulocytes Absolute 0.06 #; Lymphocytes # 1.5 10*3/uL (1.4-4.0); Lymphocytes % 21.7 % (21.2-54.2); Mean Corpuscular HGB Conc 32.4 GM/DL (32-36); Mean Corpuscular Volume 84.5 FL (87-102); Mean Platelet Volume 10.9 FL (9.6-12.0); Monocytes % 11.1 % (1.7-12.7); Neutrophils % 64.3 % (38.7-73.9); Platelet Count 187 T/CUMM (130-400); Red Blood Count 3.03 MC/CUMM (3.8-5.5); Red Cell Distribution Width 14.3 % (9.3-17.3); White Blood Count 6.9 T/CUMM (4-12)
[2021-05-14] MEDS ORDERED: ONDANSETRON 4 MG/2 ML VIAL ONE (18:31)
[2021-05-14] MEDS ORDERED: MORPHINE 2 MG/1 ML SYRINGE ONE (18:31)
[2021-05-14] MEDS ORDERED: ONDANSETRON 4 MG/2 ML VIAL IV STA (18:39)
[2021-05-14] MEDS ORDERED: MORPHINE 2 MG/1 ML SYRINGE IV STA (18:39)
[2021-05-14] MEDS ORDERED: ONDANSETRON 4 MG/2 ML VIAL IV PRN (20:24)
[2021-05-14] MEDS ORDERED: DEXTROSE 50% 25 GM/50 ML VIAL IV PRN ×2 (20:24)
[2021-05-14] MEDS ORDERED: ACETAMINOPHEN 325 MG TABLET PO PRN (20:24)
[2021-05-14] MEDS ORDERED: GLUCAGON 1 MG VIAL IM PRN ×2 (20:24)
[2021-05-14] MEDS ORDERED: FUROSEMIDE 40 MG/4 ML VIAL IV ONE (20:31)
[2021-05-14 20:59] LABS: Folate 8.23 NG/ML (5.38-24.0)
[2021-05-14 21:00] LABS: % Iron Saturation 22.8 % (18-50); Ferritin 264.2 ng/mL (26-388)
[2021-05-14] MEDS ORDERED: PIPERACILLIN/TAZOBACTAM 2,250 MG in SODIUM CHLORIDE 0.9% 100 ML IV SCH (21:00)
[2021-05-14] MEDS: INSULIN REGULAR 100 UNIT/ML SUBCUT SCH (22:38)
[2021-05-14] MEDS: PIPERACILLIN/TAZOBACTAM 3,375 MG in SODIUM CHLORIDE 0.9% 100 ML IV SCH (23:25)
[2021-05-14] MEDS: HALOPERIDOL 5 MG TABLET PO SCH (23:25)
[2021-05-15] MEDS: PIPERACILLIN/TAZOBACTAM 3,375 MG in SODIUM CHLORIDE 0.9% 100 ML IV SCH ×3 (05:12→21:58)
[2021-05-15 05:51] LABS: Basophils % 0.3 % (0.0-0.8); Eosinophils # 0.2 10*3/uL (0.0-0.87); Eosinophils % 2.9 % (0.00-10.9); Hematocrit 24.9 VOL% (42.0-52.0); Hemoglobin 8.2 GM/DL (14.0-18.0); Immature Granulocytes % 0.5 %; Immature Granulocytes Absolute 0.03 #; Lymphocytes # 1.2 10*3/uL (1.4-4.0); Lymphocytes % 18.9 % (21.2-54.2); Mean Corpuscular HGB Conc 32.9 GM/DL (32-36); Mean Corpuscular Volume 84.1 FL (87-102); Mean Platelet Volume 10.9 FL (9.6-12.0); Monocytes % 11.1 % (1.7-12.7); Neutrophils % 66.3 % (38.7-73.9); Platelet Count 183 T/CUMM (130-400); Red Blood Count 2.96 MC/CUMM (3.8-5.5); Red Cell Distribution Width 14.2 % (9.3-17.3); White Blood Count 6.3 T/CUMM (4-12)
[2021-05-15 06:11] LABS: Albumin 2.1 G/DL (3.4-5.0); Bilirubin,Total 0.8 MG/DL (0.20-1.00); Osmolality,Calculated 294.7 MOS/KG (273-304); Potassium 3.9 MMOL/L (3.5-5.1); Risk Ratio 3.35; VLDL Cholesterol 17.8 MG/DL
[2021-05-15] MEDS: INSULIN REGULAR 100 UNIT/ML SUBCUT SCH ×4 (08:26→22:02)
[2021-05-15] MEDS: FERROUS SULFATE 325 MG TABLET PO SCH (09:32)
[2021-05-15] MEDS: FUROSEMIDE 40 MG/4 ML VIAL IV SCH ×2 (09:32→15:30)
[2021-05-15] MEDS: ASPIRIN CHEW 81 MG TABLET PO SCH (09:32)
[2021-05-15] MEDS: amLODIPine 10 MG TABLET PO SCH (09:32)
[2021-05-15] MEDS: PANTOPRAZOLE 40 MG TABLET PO SCH (09:32)
[2021-05-15] MEDS: TAMSULOSIN 0.4 MG CAPSULE PO SCH (09:32)
[2021-05-15 09:54] LABS: Free T4 (Free Thyroxine) 1.33 NG/DL (0.76-1.46)
[2021-05-15] MEDS: HALOPERIDOL 5 MG TABLET PO SCH ×2 (09:57→21:58)
[2021-05-15] MEDS: LEVOTHYROXINE 75 MCG TABLET PO SCH (12:04)
[2021-05-15 14:36] LABS: Immunoglobulin A 375 MG/DL (70-400); Immunoglobulin G 1240 MG/DL (700-1600); Immunoglobulin M 53 MG/DL (40-230)
[2021-05-15 14:44] LABS: Hepatitis B Core IgM Quant 0.08 Index; Hepatitis B Surface Ag Quant < 0.10 Index; Hepatitis B Surface Ag Result Non-Reactive (NonReactive); Hepatitis C Virus Ab Quant 0.05 Index; Hepatitis C Virus Ab Result Non-Reactive (NonReactive)
[2021-05-15] MEDS: MENTHOL/ZINC OXIDE OINT 71 GM JAR TOP SCH ×2 (15:30→21:58)
[2021-05-15] MEDS: MORPHINE 2 MG/1 ML SYRINGE IV PRN (15:35)
[2021-05-16] MEDS: MORPHINE 2 MG/1 ML SYRINGE IV PRN ×2 (00:14→06:47)
[2021-05-16 03:30] LABS: Total Protein 24 Hr Ur Result 3465 MG/24HR (0-149.1); Total Volume,Urine 3300 ML (400-2000)
[2021-05-16 05:18] LABS: Basophils % 0.1 % (0.0-0.8); Eosinophils # 0.1 10*3/uL (0.0-0.87); Eosinophils % 1.2 % (0.00-10.9); Hematocrit 25.2 VOL% (42.0-52.0); Hemoglobin 8.2 GM/DL (14.0-18.0); Immature Granulocytes % 0.5 %; Immature Granulocytes Absolute 0.04 #; Lymphocytes # 1.2 10*3/uL (1.4-4.0); Lymphocytes % 16.3 % (21.2-54.2); Mean Corpuscular HGB Conc 32.5 GM/DL (32-36); Mean Platelet Volume 11.6 FL (9.6-12.0); Neutrophils % 71.9 % (38.7-73.9); Platelet Count 192 T/CUMM (130-400); Red Cell Distribution Width 13.8 % (9.3-17.3); White Blood Count 7.5 T/CUMM (4-12)
[2021-05-16 05:31] LABS: INR 1.1; PT Patient Result 11.7 SECS (10.5-12.0)
[2021-05-16 05:42] LABS: Calcium 8.1 MG/DL (8.5-10.1); Osmolality,Calculated 293.8 MOS/KG (273-304); Potassium 3.7 MMOL/L (3.5-5.1)
[2021-05-16] MEDS: PIPERACILLIN/TAZOBACTAM 3,375 MG in SODIUM CHLORIDE 0.9% 100 ML IV SCH (05:59)
[2021-05-16] MEDS: LEVOTHYROXINE 75 MCG TABLET PO SCH (05:59)
[2021-05-16] MEDS ORDERED: LEVOTHYROXINE 25 MCG TABLET PO SCH (06:30)
[2021-05-16] MEDS: FUROSEMIDE 40 MG/4 ML VIAL IV SCH ×2 (08:51→16:11)
[2021-05-16] MEDS: HALOPERIDOL 5 MG TABLET PO SCH ×3 (08:52→22:58)
[2021-05-16] MEDS: amLODIPine 10 MG TABLET PO SCH (08:52)
[2021-05-16] MEDS: TAMSULOSIN 0.4 MG CAPSULE PO SCH (08:52)
[2021-05-16] MEDS: ASPIRIN CHEW 81 MG TABLET PO SCH (08:52)
[2021-05-16] MEDS: MENTHOL/ZINC OXIDE OINT 71 GM JAR TOP SCH ×2 (08:52→21:22)
[2021-05-16] MEDS: FERROUS SULFATE 325 MG TABLET PO SCH (08:52)
[2021-05-16] MEDS: PANTOPRAZOLE 40 MG TABLET PO SCH (08:52)
[2021-05-16] MEDS: INSULIN REGULAR 100 UNIT/ML SUBCUT SCH ×5 (09:34→22:59)
[2021-05-16 10:22] LABS: Albumin (SPE) 2.9 G/DL (3.2-5.3); Albumin (SPE) Rel % 48.4 %; Alpha 1 (SPE) 0.2 G/DL (0.1-0.4); Alpha 1 (SPE) Rel % 3.9 %; Alpha 2 (SPE) 0.7 G/DL (0.4-1.0); Alpha 2 (SPE) Rel % 11.9 %; Beta (SPE) 0.8 G/DL (0.5-1.1); Beta (SPE) Rel % 14.1 %; Gamma (SPE) 1.3 G/DL (0.7-1.7); Gamma (SPE) Rel % 21.7 %
[2021-05-16 11:10] LABS: Albumin (UPE) 18.3 MG/24H; Albumin (UPE) Rel % 76.2 %; Alpha 1 (UPE) 1.2 MG/24H; Alpha 1 (UPE) Rel % 4.9 %; Alpha 2 (UPE) 0.8 MG/24H; Alpha 2 (UPE) Rel % 3.5 %; Beta (UPE) 1.2 MG/24H; Beta (UPE) Rel % 4.8 %; Gamma (UPE) 2.5 MG/24H; Gamma (UPE) Rel % 10.6 %
[2021-05-16 11:20] LABS: Immunoglobulin A (Chem) 375 MG/DL (70-400); Immunoglobulin G (Chem) 1240 MG/DL (700-1600); Immunoglobulin M (Chem) 53 MG/DL (40-230)
[2021-05-16] MEDS: hydrALAZINE 25 MG TABLET PO SCH ×3 (16:11→22:58)
[2021-05-16] MEDS: DOXYCYCLINE HYCLATE 100 MG CAPSULE PO SCH (16:11)
[2021-05-16] MEDS: CETIRIZINE 10 MG TABLET PO PRN (16:11)
[2021-05-17 05:37] LABS: Basophils % 0.1 % (0.0-0.8); Eosinophils # 0.1 10*3/uL (0.0-0.87); Eosinophils % 1.3 % (0.00-10.9); Hematocrit 24.2 VOL% (42.0-52.0); Hemoglobin 8.1 GM/DL (14.0-18.0); Immature Granulocytes % 0.7 %; Immature Granulocytes Absolute 0.05 #; Lymphocytes # 1.4 10*3/uL (1.4-4.0); Mean Corpuscular HGB Conc 33.5 GM/DL (32-36); Mean Corpuscular Volume 82.3 FL (87-102); Monocytes % 11.1 % (1.7-12.7); Neutrophils % 67.8 % (38.7-73.9); Platelet Count 199 T/CUMM (130-400); Red Blood Count 2.94 MC/CUMM (3.8-5.5); Red Cell Distribution Width 13.8 % (9.3-17.3); White Blood Count 7.1 T/CUMM (4-12)
[2021-05-17] MEDS: LEVOTHYROXINE 75 MCG TABLET PO SCH (05:41)
[2021-05-17 06:08] LABS: Calcium 7.9 MG/DL (8.5-10.1); Osmolality,Calculated 294.8 MOS/KG (273-304); Potassium 3.3 MMOL/L (3.5-5.1)
[2021-05-17] MEDS: PANTOPRAZOLE 40 MG TABLET PO SCH (09:52)
[2021-05-17] MEDS: lisinopriL 5 MG TABLET PO SCH (09:52)
[2021-05-17] MEDS: ASPIRIN CHEW 81 MG TABLET PO SCH (09:52)
[2021-05-17] MEDS: hydrALAZINE 25 MG TABLET PO SCH ×3 (09:52→20:41)
[2021-05-17] MEDS: HALOPERIDOL 5 MG TABLET PO SCH ×2 (09:52→20:40)
[2021-05-17] MEDS: DOXYCYCLINE HYCLATE 100 MG CAPSULE PO SCH ×2 (09:53→18:00)
[2021-05-17] MEDS: FUROSEMIDE 40 MG/4 ML VIAL IV SCH ×2 (09:53→15:21)
[2021-05-17] MEDS: TAMSULOSIN 0.4 MG CAPSULE PO SCH (09:53)
[2021-05-17] MEDS: FERROUS SULFATE 325 MG TABLET PO SCH (09:53)
[2021-05-17] MEDS: amLODIPine 10 MG TABLET PO SCH (09:53)
[2021-05-17] MEDS: INSULIN REGULAR 100 UNIT/ML SUBCUT SCH ×4 (09:54→22:15)
[2021-05-17] MEDS: MENTHOL/ZINC OXIDE OINT 71 GM JAR TOP SCH ×2 (09:57→20:41)
[2021-05-17] MEDS: hydrALAZINE 20 MG/1 ML VIAL IV PRN (12:05)
[2021-05-17] MEDS ORDERED: POTASSIUM BICARB EFFERVESCENT 20 MEQ TAB.EFF PO STA (15:00)
[2021-05-18] MEDS: MORPHINE 2 MG/1 ML SYRINGE IV PRN ×2 (01:40→16:40)
[2021-05-18 04:57] LABS: Basophils % 0.3 % (0.0-0.8); Eosinophils # 0.1 10*3/uL (0.0-0.87); Eosinophils % 1.7 % (0.00-10.9); Hematocrit 24.6 VOL% (42.0-52.0); Hemoglobin 8.1 GM/DL (14.0-18.0); Immature Granulocytes % 1.1 %; Immature Granulocytes Absolute 0.08 #; Lymphocytes # 1.4 10*3/uL (1.4-4.0); Lymphocytes % 18.8 % (21.2-54.2); Mean Corpuscular HGB Conc 32.9 GM/DL (32-36); Mean Corpuscular Volume 83.1 FL (87-102); Mean Platelet Volume 11.1 FL (9.6-12.0); Neutrophils % 66.1 % (38.7-73.9); Platelet Count 199 T/CUMM (130-400); Red Blood Count 2.96 MC/CUMM (3.8-5.5); Red Cell Distribution Width 13.6 % (9.3-17.3); White Blood Count 7.2 T/CUMM (4-12)
[2021-05-18 05:28] LABS: Alanine Aminotransferase < 9 U/L (16-61); Albumin 1.9 G/DL (3.4-5.0); Alkaline Phosphatase 69 U/L (45-117); Aspartate Amino Transferase 14 U/L (0-37); Bilirubin,Total < 0.39 MG/DL (0.20-1.00); Blood Urea Nitrogen 31 MG/DL (7-18); Calcium 7.8 MG/DL (8.5-10.1); Carbon Dioxide 31 MMOL/L (21-32); Estimated Glom Filtration Rate 67 ML/MIN; Glucose 145 MG/DL (74-106); Osmolality,Calculated 295.8 MOS/KG (273-304); Potassium 3.5 MMOL/L (3.5-5.1); Sodium 144 MMOL/L (136-145); Total Protein 5.5 G/DL (6.4-8.2)
[2021-05-18] MEDS: LEVOTHYROXINE 75 MCG TABLET PO SCH (05:42)
[2021-05-18] MEDS: INSULIN REGULAR 100 UNIT/ML SUBCUT SCH ×4 (08:22→20:51)
[2021-05-18] MEDS: FUROSEMIDE 40 MG/4 ML VIAL IV SCH ×2 (08:32→16:39)
[2021-05-18] MEDS: DOXYCYCLINE HYCLATE 100 MG CAPSULE PO SCH ×2 (08:32→16:39)
[2021-05-18] MEDS: TAMSULOSIN 0.4 MG CAPSULE PO SCH (09:41)
[2021-05-18] MEDS: metOLazone 5 MG TABLET PO SCH (09:42)
[2021-05-18] MEDS: lisinopriL 5 MG TABLET PO SCH (09:42)
[2021-05-18] MEDS: HALOPERIDOL 5 MG TABLET PO SCH ×2 (09:43→20:36)
[2021-05-18] MEDS: MENTHOL/ZINC OXIDE OINT 71 GM JAR TOP SCH ×2 (09:43→20:48)
[2021-05-18] MEDS: PANTOPRAZOLE 40 MG TABLET PO SCH (09:43)
[2021-05-18] MEDS: amLODIPine 10 MG TABLET PO SCH (09:43)
[2021-05-18] MEDS: ASPIRIN CHEW 81 MG TABLET PO SCH (09:43)
[2021-05-18] MEDS: hydrALAZINE 25 MG TABLET PO SCH ×3 (09:43→20:36)
[2021-05-18] MEDS: FERROUS SULFATE 325 MG TABLET PO SCH (09:43)
[2021-05-18] MEDS: DIVALPROEX 500 MG TABLET PO SCH ×2 (11:12→20:36)
[2021-05-19] MEDS: LEVOTHYROXINE 75 MCG TABLET PO SCH (05:51)
[2021-05-19 08:25] LABS: Basophils % 0.3 % (0.0-0.8); Eosinophils # 0.2 10*3/uL (0.0-0.87); Eosinophils % 3.3 % (0.00-10.9); Hematocrit 24.3 VOL% (42.0-52.0); Immature Granulocytes % 0.4 %; Immature Granulocytes Absolute 0.03 #; Lymphocytes # 1.6 10*3/uL (1.4-4.0); Lymphocytes % 22.8 % (21.2-54.2); Mean Corpuscular HGB Conc 32.9 GM/DL (32-36); Mean Corpuscular Volume 82.9 FL (87-102); Mean Platelet Volume 10.5 FL (9.6-12.0); Monocytes % 10.2 % (1.7-12.7); Platelet Count 206 T/CUMM (130-400); Red Blood Count 2.93 MC/CUMM (3.8-5.5); Red Cell Distribution Width 13.9 % (9.3-17.3)
[2021-05-19 08:47] LABS: Alanine Aminotransferase < 9 U/L (16-61); Albumin 1.9 G/DL (3.4-5.0); Alkaline Phosphatase 72 U/L (45-117); Aspartate Amino Transferase 15 U/L (0-37); Bilirubin,Total < 0.39 MG/DL (0.20-1.00); Blood Urea Nitrogen 31 MG/DL (7-18); Carbon Dioxide 32 MMOL/L (21-32); Estimated Glom Filtration Rate 73 ML/MIN; Glucose 133 MG/DL (74-106); Osmolality,Calculated 291.1 MOS/KG (273-304); Potassium 3.3 MMOL/L (3.5-5.1); Sodium 142 MMOL/L (136-145); Total Protein 5.9 G/DL (6.4-8.2)
[2021-05-19] MEDS: hydrALAZINE 25 MG TABLET PO SCH ×3 (08:58→22:08)
[2021-05-19] MEDS: FERROUS SULFATE 325 MG TABLET PO SCH (08:58)
[2021-05-19] MEDS: HALOPERIDOL 5 MG TABLET PO SCH ×2 (08:58→22:09)
[2021-05-19] MEDS: amLODIPine 10 MG TABLET PO SCH (08:58)
[2021-05-19] MEDS: ASPIRIN CHEW 81 MG TABLET PO SCH (08:59)
[2021-05-19] MEDS: FUROSEMIDE 40 MG/4 ML VIAL IV SCH ×2 (08:59→15:19)
[2021-05-19] MEDS: DIVALPROEX 500 MG TABLET PO SCH ×2 (08:59→22:08)
[2021-05-19] MEDS: DOXYCYCLINE HYCLATE 100 MG CAPSULE PO SCH ×2 (08:59→17:14)
[2021-05-19] MEDS: CETIRIZINE 10 MG TABLET PO PRN (08:59)
[2021-05-19] MEDS: metOLazone 5 MG TABLET PO SCH (08:59)
[2021-05-19] MEDS: lisinopriL 5 MG TABLET PO SCH (08:59)
[2021-05-19] MEDS: PANTOPRAZOLE 40 MG TABLET PO SCH (08:59)
[2021-05-19] MEDS: TAMSULOSIN 0.4 MG CAPSULE PO SCH (08:59)
[2021-05-19] MEDS: MENTHOL/ZINC OXIDE OINT 71 GM JAR TOP SCH ×2 (09:00→22:10)
[2021-05-19] MEDS: INSULIN REGULAR 100 UNIT/ML SUBCUT SCH ×5 (11:19→22:27)
[2021-05-19] MEDS: diphenhydrAMINE CAP 25 MG CAPSULE PO PRN (18:52)
[2021-05-20] MEDS: diphenhydrAMINE CAP 25 MG CAPSULE PO PRN (01:03)
[2021-05-20] MEDS: LEVOTHYROXINE 75 MCG TABLET PO SCH (05:31)
[2021-05-20] MEDS: INSULIN REGULAR 100 UNIT/ML SUBCUT SCH ×4 (08:03→20:56)
[2021-05-20 08:21] LABS: Osmolality,Calculated 286.4 MOS/KG (273-304); Potassium 3.3 MMOL/L (3.5-5.1)
[2021-05-20] MEDS: ASPIRIN CHEW 81 MG TABLET PO SCH (09:59)
[2021-05-20] MEDS: FUROSEMIDE 40 MG/4 ML VIAL IV SCH ×2 (09:59→17:39)
[2021-05-20] MEDS: PANTOPRAZOLE 40 MG TABLET PO SCH (09:59)
[2021-05-20] MEDS: metOLazone 5 MG TABLET PO SCH (09:59)
[2021-05-20] MEDS: lisinopriL 5 MG TABLET PO SCH (09:59)
[2021-05-20] MEDS: TAMSULOSIN 0.4 MG CAPSULE PO SCH (09:59)
[2021-05-20] MEDS: FERROUS SULFATE 325 MG TABLET PO SCH (09:59)
[2021-05-20] MEDS: DOXYCYCLINE HYCLATE 100 MG CAPSULE PO SCH ×2 (09:59→17:39)
[2021-05-20] MEDS: amLODIPine 10 MG TABLET PO SCH (10:00)
[2021-05-20] MEDS: hydrALAZINE 25 MG TABLET PO SCH ×4 (10:00→20:56)
[2021-05-20] MEDS: MENTHOL/ZINC OXIDE OINT 71 GM JAR TOP SCH ×2 (10:00→20:56)
[2021-05-20] MEDS: HALOPERIDOL 5 MG TABLET PO SCH ×2 (10:00→20:56)
[2021-05-20] MEDS: DIVALPROEX 500 MG TABLET PO SCH ×2 (10:00→20:56)
[2021-05-20 15:50] LABS: Calcium 8.1 MG/DL (8.5-10.1); Osmolality,Calculated 289.4 MOS/KG (273-304); Potassium 3.3 MMOL/L (3.5-5.1)
[2021-05-21] MEDS: LEVOTHYROXINE 75 MCG TABLET PO SCH (06:57)
[2021-05-21 07:14] LABS: Albumin 1.9 G/DL (3.4-5.0); Bilirubin,Total 0.5 MG/DL (0.20-1.00); Osmolality,Calculated 291.1 MOS/KG (273-304); Potassium 3.3 MMOL/L (3.5-5.1); Total Protein 5.8 G/DL (6.4-8.2)
[2021-05-21] MEDS: INSULIN REGULAR 100 UNIT/ML SUBCUT SCH ×4 (08:02→20:30)
[2021-05-21] MEDS: DOXYCYCLINE HYCLATE 100 MG CAPSULE PO SCH ×2 (09:04→16:54)
[2021-05-21] MEDS: FERROUS SULFATE 325 MG TABLET PO SCH (09:04)
[2021-05-21] MEDS: FUROSEMIDE 40 MG/4 ML VIAL IV SCH ×2 (09:04→16:55)
[2021-05-21] MEDS: metOLazone 5 MG TABLET PO SCH (09:05)
[2021-05-21] MEDS: HALOPERIDOL 5 MG TABLET PO SCH ×2 (09:05→20:30)
[2021-05-21] MEDS: DIVALPROEX 500 MG TABLET PO SCH ×2 (09:05→20:30)
[2021-05-21] MEDS: ASPIRIN CHEW 81 MG TABLET PO SCH (09:05)
[2021-05-21] MEDS: MENTHOL/ZINC OXIDE OINT 71 GM JAR TOP SCH ×2 (09:05→20:30)
[2021-05-21] MEDS: PANTOPRAZOLE 40 MG TABLET PO SCH (09:05)
[2021-05-21] MEDS: amLODIPine 10 MG TABLET PO SCH (09:05)
[2021-05-21] MEDS: hydrALAZINE 25 MG TABLET PO SCH ×4 (09:05→20:30)
[2021-05-21] MEDS: lisinopriL 5 MG TABLET PO SCH (09:05)
[2021-05-21] MEDS: TAMSULOSIN 0.4 MG CAPSULE PO SCH (09:05)
[2021-05-21] MEDS: diphenhydrAMINE CAP 25 MG CAPSULE PO PRN (16:54)
[2021-05-22] MEDS: LEVOTHYROXINE 75 MCG TABLET PO SCH (07:13)
[2021-05-22 08:02] LABS: Basophils % 0.3 % (0.0-0.8); Eosinophils # 0.2 10*3/uL (0.0-0.87); Eosinophils % 2.5 % (0.00-10.9); Hemoglobin 8.7 GM/DL (14.0-18.0); Immature Granulocytes % 0.6 %; Immature Granulocytes Absolute 0.04 #; Lymphocytes # 1.6 10*3/uL (1.4-4.0); Lymphocytes % 25.6 % (21.2-54.2); Mean Corpuscular HGB Conc 33.5 GM/DL (32-36); Mean Corpuscular Volume 82.3 FL (87-102); Mean Platelet Volume 9.9 FL (9.6-12.0); Monocytes % 10.7 % (1.7-12.7); Neutrophils % 60.3 % (38.7-73.9); Platelet Count 236 T/CUMM (130-400); Red Blood Count 3.16 MC/CUMM (3.8-5.5); Red Cell Distribution Width 13.6 % (9.3-17.3); White Blood Count 6.3 T/CUMM (4-12)
[2021-05-22] MEDS: HALOPERIDOL 5 MG TABLET PO SCH ×2 (08:11→21:13)
[2021-05-22] MEDS: ASPIRIN CHEW 81 MG TABLET PO SCH (08:11)
[2021-05-22] MEDS: PANTOPRAZOLE 40 MG TABLET PO SCH (08:11)
[2021-05-22] MEDS: INSULIN REGULAR 100 UNIT/ML SUBCUT SCH ×4 (08:11→21:13)
[2021-05-22] MEDS: lisinopriL 5 MG TABLET PO SCH (08:12)
[2021-05-22] MEDS: metOLazone 5 MG TABLET PO SCH (08:12)
[2021-05-22] MEDS: amLODIPine 10 MG TABLET PO SCH (08:12)
[2021-05-22] MEDS: FUROSEMIDE 40 MG/4 ML VIAL IV SCH ×2 (08:12→15:03)
[2021-05-22] MEDS: DIVALPROEX 500 MG TABLET PO SCH ×2 (08:12→21:13)
[2021-05-22] MEDS: hydrALAZINE 25 MG TABLET PO SCH ×4 (08:12→21:13)
[2021-05-22] MEDS: TAMSULOSIN 0.4 MG CAPSULE PO SCH (08:12)
[2021-05-22] MEDS: FERROUS SULFATE 325 MG TABLET PO SCH (08:12)
[2021-05-22] MEDS: DOXYCYCLINE HYCLATE 100 MG CAPSULE PO SCH ×2 (08:13→16:35)
[2021-05-22 08:20] LABS: Calcium 8.3 MG/DL (8.5-10.1); Osmolality,Calculated 292.1 MOS/KG (273-304); Potassium 3.3 MMOL/L (3.5-5.1)
[2021-05-22] MEDS: MENTHOL/ZINC OXIDE OINT 71 GM JAR TOP SCH ×2 (09:09→21:13)
[2021-05-22] MEDS ORDERED: MAGNESIUM SULF RIDER 2 GM/50 ML PREMIX IV ONE (15:00)
[2021-05-22] MEDS: POTASSIUM CHLORIDE RIDER 10 MEQ/100 ML PREMIX IV SCH ×4 (15:03→21:13)
[2021-05-23] MEDS: hydrALAZINE 20 MG/1 ML VIAL IV PRN (05:17)
[2021-05-23] MEDS: LEVOTHYROXINE 75 MCG TABLET PO SCH (07:06)
[2021-05-23 08:06] LABS: Basophils % 0.1 % (0.0-0.8); Eosinophils # 0.1 10*3/uL (0.0-0.87); Eosinophils % 1.6 % (0.00-10.9); Hematocrit 25.5 VOL% (42.0-52.0); Hemoglobin 8.6 GM/DL (14.0-18.0); Immature Granulocytes % 0.4 %; Immature Granulocytes Absolute 0.03 #; Lymphocytes # 1.3 10*3/uL (1.4-4.0); Lymphocytes % 16.9 % (21.2-54.2); Mean Corpuscular HGB Conc 33.7 GM/DL (32-36); Mean Corpuscular Volume 81.2 FL (87-102); Mean Platelet Volume 10.1 FL (9.6-12.0); Monocytes % 9.2 % (1.7-12.7); Neutrophils % 71.8 % (38.7-73.9); Platelet Count 250 T/CUMM (130-400); Red Blood Count 3.14 MC/CUMM (3.8-5.5); Red Cell Distribution Width 13.7 % (9.3-17.3); White Blood Count 7.4 T/CUMM (4-12)
[2021-05-23] MEDS: INSULIN REGULAR 100 UNIT/ML SUBCUT SCH ×4 (08:10→20:48)
[2021-05-23 08:42] LABS: Calcium 8.5 MG/DL (8.5-10.1); Osmolality,Calculated 286.5 MOS/KG (273-304); Potassium 3.4 MMOL/L (3.5-5.1)
[2021-05-23] MEDS: hydrALAZINE 25 MG TABLET PO SCH ×4 (09:12→20:47)
[2021-05-23] MEDS: FUROSEMIDE 40 MG/4 ML VIAL IV SCH ×2 (09:12→16:47)
[2021-05-23] MEDS: FERROUS SULFATE 325 MG TABLET PO SCH (09:13)
[2021-05-23] MEDS: ASPIRIN CHEW 81 MG TABLET PO SCH (09:13)
[2021-05-23] MEDS: DIVALPROEX 500 MG TABLET PO SCH ×2 (09:13→20:47)
[2021-05-23] MEDS: DOXYCYCLINE HYCLATE 100 MG CAPSULE PO SCH ×2 (09:13→16:47)
[2021-05-23] MEDS: metOLazone 5 MG TABLET PO SCH (09:13)
[2021-05-23] MEDS: PANTOPRAZOLE 40 MG TABLET PO SCH (09:13)
[2021-05-23] MEDS: HALOPERIDOL 5 MG TABLET PO SCH ×2 (09:13→20:47)
[2021-05-23] MEDS: TAMSULOSIN 0.4 MG CAPSULE PO SCH (09:13)
[2021-05-23] MEDS: lisinopriL 5 MG TABLET PO SCH (09:13)
[2021-05-23] MEDS: amLODIPine 10 MG TABLET PO SCH (09:13)
[2021-05-23] MEDS: MENTHOL/ZINC OXIDE OINT 71 GM JAR TOP SCH ×2 (09:28→20:47)
[2021-05-24 05:16] LABS: Basophils % 0.3 % (0.0-0.8); Eosinophils # 0.1 10*3/uL (0.0-0.87); Eosinophils % 2.3 % (0.00-10.9); Hematocrit 24.9 VOL% (42.0-52.0); Hemoglobin 8.4 GM/DL (14.0-18.0); Immature Granulocytes % 0.5 %; Immature Granulocytes Absolute 0.03 #; Lymphocytes # 1.7 10*3/uL (1.4-4.0); Lymphocytes % 27.9 % (21.2-54.2); Mean Corpuscular HGB Conc 33.7 GM/DL (32-36); Mean Corpuscular Volume 81.1 FL (87-102); Mean Platelet Volume 10.5 FL (9.6-12.0); Monocytes % 12.4 % (1.7-12.7); Neutrophils % 56.6 % (38.7-73.9); Platelet Count 252 T/CUMM (130-400); Red Blood Count 3.07 MC/CUMM (3.8-5.5); Red Cell Distribution Width 13.4 % (9.3-17.3); White Blood Count 6.2 T/CUMM (4-12)
[2021-05-24 05:32] LABS: Calcium 8.6 MG/DL (8.5-10.1); Potassium 3.5 MMOL/L (3.5-5.1)
[2021-05-24] MEDS: LEVOTHYROXINE 75 MCG TABLET PO SCH (06:55)
[2021-05-24] MEDS: INSULIN REGULAR 100 UNIT/ML SUBCUT SCH ×4 (07:42→22:09)
[2021-05-24] MEDS: FUROSEMIDE 40 MG/4 ML VIAL IV SCH ×2 (08:16→15:49)
[2021-05-24] MEDS: metOLazone 5 MG TABLET PO SCH (08:16)
[2021-05-24] MEDS: PANTOPRAZOLE 40 MG TABLET PO SCH (08:16)
[2021-05-24] MEDS: amLODIPine 10 MG TABLET PO SCH (08:16)
[2021-05-24] MEDS: TAMSULOSIN 0.4 MG CAPSULE PO SCH (08:16)
[2021-05-24] MEDS: FERROUS SULFATE 325 MG TABLET PO SCH (08:16)
[2021-05-24] MEDS: lisinopriL 5 MG TABLET PO SCH (08:16)
[2021-05-24] MEDS: ASPIRIN CHEW 81 MG TABLET PO SCH (08:16)
[2021-05-24] MEDS: DIVALPROEX 500 MG TABLET PO SCH ×2 (08:16→22:08)
[2021-05-24] MEDS: hydrALAZINE 25 MG TABLET PO SCH ×4 (08:16→22:08)
[2021-05-24] MEDS: HALOPERIDOL 5 MG TABLET PO SCH ×2 (08:17→22:08)
[2021-05-24] MEDS: MENTHOL/ZINC OXIDE OINT 71 GM JAR TOP SCH ×2 (08:17→22:09)
[2021-05-24] MEDS: CEFEPIME 1,000 MG in SODIUM CHLORIDE 0.9% 100 ML IV SCH ×2 (16:10→22:07)
[2021-05-25] MEDS: CEFEPIME 1,000 MG in SODIUM CHLORIDE 0.9% 100 ML IV SCH ×4 (04:57→22:06)
[2021-05-25 05:21] LABS: Basophils % 0.3 % (0.0-0.8); Eosinophils # 0.2 10*3/uL (0.0-0.87); Eosinophils % 2.4 % (0.00-10.9); Hematocrit 24.8 VOL% (42.0-52.0); Hemoglobin 8.4 GM/DL (14.0-18.0); Immature Granulocytes % 0.6 %; Immature Granulocytes Absolute 0.04 #; Lymphocytes # 1.5 10*3/uL (1.4-4.0); Lymphocytes % 23.5 % (21.2-54.2); Mean Corpuscular HGB Conc 33.9 GM/DL (32-36); Mean Corpuscular Volume 82.9 FL (87-102); Mean Platelet Volume 10.5 FL (9.6-12.0); Monocytes % 11.7 % (1.7-12.7); Neutrophils % 61.5 % (38.7-73.9); Platelet Count 245 T/CUMM (130-400); Red Blood Count 2.99 MC/CUMM (3.8-5.5); Red Cell Distribution Width 13.7 % (9.3-17.3); White Blood Count 6.3 T/CUMM (4-12)
[2021-05-25 05:42] LABS: Calcium 7.9 MG/DL (8.5-10.1); Osmolality,Calculated 292.4 MOS/KG (273-304); Potassium 3.5 MMOL/L (3.5-5.1)
[2021-05-25] MEDS: LEVOTHYROXINE 75 MCG TABLET PO SCH (06:19)
[2021-05-25] MEDS: INSULIN REGULAR 100 UNIT/ML SUBCUT SCH ×4 (08:46→22:11)
[2021-05-25] MEDS: TAMSULOSIN 0.4 MG CAPSULE PO SCH (08:47)
[2021-05-25] MEDS: ASPIRIN CHEW 81 MG TABLET PO SCH (08:47)
[2021-05-25] MEDS: amLODIPine 10 MG TABLET PO SCH (08:47)
[2021-05-25] MEDS: lisinopriL 5 MG TABLET PO SCH (08:47)
[2021-05-25] MEDS: HALOPERIDOL 5 MG TABLET PO SCH ×2 (08:48→22:05)
[2021-05-25] MEDS: PANTOPRAZOLE 40 MG TABLET PO SCH (08:48)
[2021-05-25] MEDS: metOLazone 5 MG TABLET PO SCH (08:48)
[2021-05-25] MEDS: DIVALPROEX 500 MG TABLET PO SCH ×2 (08:48→22:05)
[2021-05-25] MEDS: FERROUS SULFATE 325 MG TABLET PO SCH (08:48)
[2021-05-25] MEDS: hydrALAZINE 25 MG TABLET PO SCH ×2 (08:48→13:25)
[2021-05-25] MEDS: FUROSEMIDE 40 MG/4 ML VIAL IV SCH ×2 (08:55→16:15)
[2021-05-25] MEDS: MENTHOL/ZINC OXIDE OINT 71 GM JAR TOP SCH ×2 (08:57→22:06)
[2021-05-26 05:40] LABS: Basophils % 0.4 % (0.0-0.8); Eosinophils # 0.2 10*3/uL (0.0-0.87); Eosinophils % 2.5 % (0.00-10.9); Hematocrit 25.8 VOL% (42.0-52.0); Hemoglobin 8.8 GM/DL (14.0-18.0); Immature Granulocytes % 0.4 %; Immature Granulocytes Absolute 0.03 #; Lymphocytes # 1.5 10*3/uL (1.4-4.0); Lymphocytes % 22.3 % (21.2-54.2); Mean Corpuscular HGB Conc 34.1 GM/DL (32-36); Mean Platelet Volume 10.2 FL (9.6-12.0); Monocytes % 10.3 % (1.7-12.7); Neutrophils % 64.1 % (38.7-73.9); Platelet Count 241 T/CUMM (130-400); Red Blood Count 3.11 MC/CUMM (3.8-5.5); Red Cell Distribution Width 13.7 % (9.3-17.3); White Blood Count 6.9 T/CUMM (4-12)
[2021-05-26] MEDS: CEFEPIME 1,000 MG in SODIUM CHLORIDE 0.9% 100 ML IV SCH ×4 (06:02→21:45)
[2021-05-26 06:03] LABS: Calcium 8.4 MG/DL (8.5-10.1); Osmolality,Calculated 294.5 MOS/KG (273-304); Potassium 3.4 MMOL/L (3.5-5.1)
[2021-05-26] MEDS: LEVOTHYROXINE 75 MCG TABLET PO SCH (06:03)
[2021-05-26] MEDS: lisinopriL 5 MG TABLET PO SCH (08:44)
[2021-05-26] MEDS: TAMSULOSIN 0.4 MG CAPSULE PO SCH (08:45)
[2021-05-26] MEDS: PANTOPRAZOLE 40 MG TABLET PO SCH (08:45)
[2021-05-26] MEDS: amLODIPine 10 MG TABLET PO SCH (08:45)
[2021-05-26] MEDS: FERROUS SULFATE 325 MG TABLET PO SCH (08:45)
[2021-05-26] MEDS: ASPIRIN CHEW 81 MG TABLET PO SCH (08:45)
[2021-05-26] MEDS: HALOPERIDOL 5 MG TABLET PO SCH ×2 (08:45→21:46)
[2021-05-26] MEDS: metOLazone 5 MG TABLET PO SCH (08:46)
[2021-05-26] MEDS: DIVALPROEX 500 MG TABLET PO SCH ×2 (08:46→21:46)
[2021-05-26] MEDS: INSULIN REGULAR 100 UNIT/ML SUBCUT SCH ×4 (08:56→21:46)
[2021-05-26] MEDS: MENTHOL/ZINC OXIDE OINT 71 GM JAR TOP SCH ×2 (08:59→21:46)
[2021-05-26] MEDS: FUROSEMIDE 40 MG/4 ML VIAL IV SCH ×2 (08:59→17:16)
[2021-05-26] MEDS ORDERED: traZODone 50 MG TABLET PO PRN (12:58)
[2021-05-26] MEDS: MAGNESIUM CHLORIDE 64 MG TABLET PO SCH (14:24)
[2021-05-26] MEDS: POTASSIUM CHLORIDE 20 MEQ TABLET PO SCH (14:24)
[2021-05-27] MEDS: CEFEPIME 1,000 MG in SODIUM CHLORIDE 0.9% 100 ML IV SCH ×4 (04:45→21:25)
[2021-05-27] MEDS: LEVOTHYROXINE 75 MCG TABLET PO SCH (05:46)
[2021-05-27 05:59] LABS: Basophils % 0.2 % (0.0-0.8); Eosinophils # 0.2 10*3/uL (0.0-0.87); Eosinophils % 2.3 % (0.00-10.9); Hematocrit 24.8 VOL% (42.0-52.0); Immature Granulocytes % 1.6 %; Immature Granulocytes Absolute 0.13 #; Lymphocytes # 1.7 10*3/uL (1.4-4.0); Lymphocytes % 20.3 % (21.2-54.2); Mean Corpuscular HGB Conc 32.3 GM/DL (32-36); Mean Corpuscular Volume 84.1 FL (87-102); Mean Platelet Volume 10.4 FL (9.6-12.0); Monocytes % 9.9 % (1.7-12.7); Neutrophils % 65.7 % (38.7-73.9); Platelet Count 243 T/CUMM (130-400); Red Blood Count 2.95 MC/CUMM (3.8-5.5); Red Cell Distribution Width 13.8 % (9.3-17.3); White Blood Count 8.2 T/CUMM (4-12)
[2021-05-27 06:47] LABS: Calcium 8.5 MG/DL (8.5-10.1); Osmolality,Calculated 299.1 MOS/KG (273-304); Potassium 3.7 MMOL/L (3.5-5.1)
[2021-05-27] MEDS: INSULIN REGULAR 100 UNIT/ML SUBCUT SCH ×4 (07:53→21:25)
[2021-05-27] MEDS: FUROSEMIDE 40 MG/4 ML VIAL IV SCH (08:14)
[2021-05-27] MEDS: POTASSIUM CHLORIDE 20 MEQ TABLET PO SCH (09:15)
[2021-05-27] MEDS: ASPIRIN CHEW 81 MG TABLET PO SCH (09:15)
[2021-05-27] MEDS: amLODIPine 10 MG TABLET PO SCH (09:15)
[2021-05-27] MEDS: MAGNESIUM CHLORIDE 64 MG TABLET PO SCH (09:15)
[2021-05-27] MEDS: FERROUS SULFATE 325 MG TABLET PO SCH (09:16)
[2021-05-27] MEDS: DIVALPROEX 500 MG TABLET PO SCH ×2 (09:16→21:25)
[2021-05-27] MEDS: metOLazone 5 MG TABLET PO SCH (09:16)
[2021-05-27] MEDS: HALOPERIDOL 5 MG TABLET PO SCH ×2 (09:16→21:25)
[2021-05-27] MEDS: TAMSULOSIN 0.4 MG CAPSULE PO SCH (09:16)
[2021-05-27] MEDS: MENTHOL/ZINC OXIDE OINT 71 GM JAR TOP SCH ×2 (09:16→21:25)
[2021-05-27] MEDS: PANTOPRAZOLE 40 MG TABLET PO SCH (09:16)
[2021-05-27] MEDS: lisinopriL 5 MG TABLET PO SCH (09:16)
[2021-05-27] MEDS: FUROSEMIDE 40 MG TABLET PO SCH (16:11)
[2021-05-28] MEDS: CEFEPIME 1,000 MG in SODIUM CHLORIDE 0.9% 100 ML IV SCH ×4 (03:09→21:10)
[2021-05-28] MEDS: LEVOTHYROXINE 75 MCG TABLET PO SCH (05:36)
[2021-05-28] MEDS: lisinopriL 5 MG TABLET PO SCH (09:28)
[2021-05-28] MEDS: FERROUS SULFATE 325 MG TABLET PO SCH (09:28)
[2021-05-28] MEDS: PANTOPRAZOLE 40 MG TABLET PO SCH (09:28)
[2021-05-28] MEDS: POTASSIUM CHLORIDE 20 MEQ TABLET PO SCH (09:28)
[2021-05-28] MEDS: FUROSEMIDE 40 MG TABLET PO SCH ×2 (09:28→16:45)
[2021-05-28] MEDS: INSULIN REGULAR 100 UNIT/ML SUBCUT SCH ×4 (09:28→21:10)
[2021-05-28] MEDS: HALOPERIDOL 5 MG TABLET PO SCH ×2 (09:28→21:09)
[2021-05-28] MEDS: amLODIPine 10 MG TABLET PO SCH (09:28)
[2021-05-28] MEDS: MENTHOL/ZINC OXIDE OINT 71 GM JAR TOP SCH ×2 (09:28→21:10)
[2021-05-28] MEDS: DIVALPROEX 500 MG TABLET PO SCH ×2 (09:28→21:09)
[2021-05-28] MEDS: TAMSULOSIN 0.4 MG CAPSULE PO SCH (09:28)
[2021-05-28] MEDS: MAGNESIUM CHLORIDE 64 MG TABLET PO SCH (09:28)
[2021-05-28] MEDS: ASPIRIN CHEW 81 MG TABLET PO SCH (09:34)
[2021-05-29] MEDS: CEFEPIME 1,000 MG in SODIUM CHLORIDE 0.9% 100 ML IV SCH ×3 (04:45→16:13)
[2021-05-29] MEDS: LEVOTHYROXINE 75 MCG TABLET PO SCH (05:48)
[2021-05-29 07:10] LABS: Calcium 9.2 MG/DL (8.5-10.1); Osmolality,Calculated 291.7 MOS/KG (273-304); Potassium 3.8 MMOL/L (3.5-5.1)
[2021-05-29] MEDS: HALOPERIDOL 5 MG TABLET PO SCH (10:01)
[2021-05-29] MEDS: DIVALPROEX 500 MG TABLET PO SCH (10:01)
[2021-05-29] MEDS: lisinopriL 5 MG TABLET PO SCH (10:01)
[2021-05-29] MEDS: MAGNESIUM CHLORIDE 64 MG TABLET PO SCH (10:02)
[2021-05-29] MEDS: FERROUS SULFATE 325 MG TABLET PO SCH (10:02)
[2021-05-29] MEDS: POTASSIUM CHLORIDE 20 MEQ TABLET PO SCH (10:02)
[2021-05-29] MEDS: TAMSULOSIN 0.4 MG CAPSULE PO SCH (10:02)
[2021-05-29] MEDS: ASPIRIN CHEW 81 MG TABLET PO SCH (10:02)
[2021-05-29] MEDS: FUROSEMIDE 40 MG TABLET PO SCH ×2 (10:03→16:11)
[2021-05-29] MEDS: amLODIPine 10 MG TABLET PO SCH (10:03)
[2021-05-29] MEDS: PANTOPRAZOLE 40 MG TABLET PO SCH (10:03)
[2021-05-29] MEDS: INSULIN REGULAR 100 UNIT/ML SUBCUT SCH ×2 (10:09→14:25)
[2021-05-29] MEDS: MENTHOL/ZINC OXIDE OINT 71 GM JAR TOP SCH (10:22)
[2021-05-29 16:39] VITALS: BP 150/83
== END 2021-05-29 17:05 | disposition home or self-care (01) | DRG 468 ==
LOC: N.ED 13:48 → N.EDINP 20:23 → SUATTDRO 20:23 → N.3E 22:21
PROVIDERS: ADMIT Internal Medicine; ATTEND Internal Medicine Geriatric Medicine

== ENCOUNTER 2021-05-30 10:07 | Observation (INO) ==
[2021-05-30] MEDS ORDERED: NALOXONE 0.4 MG/ML VIAL ONE (10:43)
[2021-05-30] MEDS ORDERED: SODIUM CHLORIDE 0.9% 1,000 ML IV STA ×2 (10:46→11:26)
[2021-05-30] MEDS ORDERED: NALOXONE 0.4 MG/ML VIAL IV STA (10:47)
[2021-05-30 11:05] LABS: Alanine Aminotransferase 12 U/L (16-61); Albumin 2.6 G/DL (3.4-5.0); Alkaline Phosphatase 75 U/L (45-117); Aspartate Amino Transferase 10 U/L (0-37); Bilirubin,Total < 0.39 MG/DL (0.20-1.00); Blood Urea Nitrogen 51 MG/DL (7-18); Carbon Dioxide 32 MMOL/L (21-32); Estimated Glom Filtration Rate 44 ML/MIN; Glucose 158 MG/DL (74-106); Osmolality,Calculated 291.7 MOS/KG (273-304); Potassium 4.1 MMOL/L (3.5-5.1); Sodium 138 MMOL/L (136-145); Total Protein 7.1 G/DL (6.4-8.2)
[2021-05-30 11:10] LABS: Basophils % 0.3 % (0.0-0.8); Eosinophils # 0.1 10*3/uL (0.0-0.87); Eosinophils % 1.6 % (0.00-10.9); Hematocrit 27.8 VOL% (42.0-52.0); Hemoglobin 9.3 GM/DL (14.0-18.0); Immature Granulocytes % 0.5 %; Immature Granulocytes Absolute 0.03 #; Lymphocytes # 1.6 10*3/uL (1.4-4.0); Lymphocytes % 24.8 % (21.2-54.2); Mean Corpuscular HGB Conc 33.5 GM/DL (32-36); Mean Corpuscular Volume 83.2 FL (87-102); Mean Platelet Volume 11.2 FL (9.6-12.0); Monocytes % 9.4 % (1.7-12.7); Neutrophils % 63.4 % (38.7-73.9); Platelet Count 220 T/CUMM (130-400); Red Blood Count 3.34 MC/CUMM (3.8-5.5); Red Cell Distribution Width 13.5 % (9.3-17.3); White Blood Count 6.4 T/CUMM (4-12)
[2021-05-30 11:29] LABS: Hypochromasia 1+; Microcytosis 1+; Platelet Estimate Normal
[2021-05-30 11:41] LABS: INR 1.1; PT Patient Result 12.2 SECS (10.5-12.0); Partial Thromboplastin Time 25.1 SECS (23.9-33.8)
[2021-05-30 11:45] LABS: Barbiturates Screen,Urine Negative (Negative); Benzodiazepines Screen,Urine Negative (Negative); Cannabinoid Screen,Urine Negative (Negative); Opiate Screen,Urine Negative (Negative); Phencyclidine Screen,Urine Negative (Negative)
[2021-05-30 11:52] LABS: Bilirubin,Urine Negative (Negative); Blood, Urine Moderate mg/dL (Negative); Glucose,Urine (UA) Negative (Negative); Ketones,Urine Negative (Negative); Mucus,Urine Occasional /LPF (Occasional); Nitrite,Urine Negative (Negative); Protein,Urine 100 MG/DL; RBC,Urine 265 /HPF (0-4); Urine Appearance CLOUDY (Clear); Urine Color Yellow (Yellow); Urine Specific Gravity 1.013 (1.001-1.035); Urine Urobilinogen < 2.0 EU/DL (0.2-1.0)
[2021-05-30] MEDS ORDERED: MEROPENEM 1,000 MG in SODIUM CHLORIDE 0.9% 100 ML IV STA (12:39)
[2021-05-30] MEDS ORDERED: ACETAMINOPHEN 500 MG TABLET ONE (13:51)
[2021-05-30] MEDS ORDERED: LORazepam 2 MG/1 ML VIAL IV PRN (15:18)
[2021-05-30] MEDS: ENOXAPARIN 40 MG/0.4 ML SYRINGE SUBCUT SCH (16:52)
[2021-05-30] MEDS: MEROPENEM 500 MG in SODIUM CHLORIDE 0.9% 100 ML IV SCH (23:17)
[2021-05-31 05:07] LABS: Basophils % 0.2 % (0.0-0.8); Eosinophils # 0.1 10*3/uL (0.0-0.87); Eosinophils % 0.9 % (0.00-10.9); Hematocrit 25.5 VOL% (42.0-52.0); Hemoglobin 8.5 GM/DL (14.0-18.0); Immature Granulocytes % 0.5 %; Immature Granulocytes Absolute 0.03 #; Lymphocytes # 1.1 10*3/uL (1.4-4.0); Lymphocytes % 20.4 % (21.2-54.2); Mean Corpuscular HGB Conc 33.3 GM/DL (32-36); Mean Corpuscular Volume 83.6 FL (87-102); Monocytes % 9.5 % (1.7-12.7); Neutrophils % 68.5 % (38.7-73.9); Platelet Count 231 T/CUMM (130-400); Red Blood Count 3.05 MC/CUMM (3.8-5.5); Red Cell Distribution Width 13.5 % (9.3-17.3); White Blood Count 5.5 T/CUMM (4-12)
[2021-05-31 05:34] LABS: Osmolality,Calculated 285.8 MOS/KG (273-304); Potassium 3.6 MMOL/L (3.5-5.1)
[2021-05-31] MEDS: MEROPENEM 500 MG in SODIUM CHLORIDE 0.9% 100 ML IV SCH ×2 (05:54→12:15)
[2021-05-31] MEDS: INSULIN LISPRO 100 UNIT/ML SUBCUT SCH ×3 (07:38→17:45)
[2021-05-31] MEDS ORDERED: MENTHOL/ZINC OXIDE OINT 71 GM JAR TOP SCH (12:00)
[2021-05-31] MEDS: ENOXAPARIN 40 MG/0.4 ML SYRINGE SUBCUT SCH (14:38)
[2021-05-31] MEDS ORDERED: LACOSAMIDE INJ 200 MG in SODIUM CHLORIDE 0.9% 50 ML IV ONE (15:00)
[2021-05-31 16:01] VITALS: BP 161/81
[2021-06-01] MEDS ORDERED: LACOSAMIDE 50 MG TABLET PO SCH (09:00)
== END 2021-05-31 19:48 | disposition home health service (06) ==
LOC: EDUNIT# → EDBD → N.EDINP 10:07 → N.ED 10:07 → N.5E 15:45
PROVIDERS: ADMIT Internal Medicine Geriatric Medicine; ATTEND Internal Medicine Geriatric Medicine

== ENCOUNTER 2021-06-03 01:26 | Inpatient (IN) ==
[2021-06-03 02:42] LABS: Basophils % 0.5 % (0.0-0.8); Eosinophils # 0.1 10*3/uL (0.0-0.87); Eosinophils % 1.8 % (0.00-10.9); Hemoglobin 8.5 GM/DL (14.0-18.0); Immature Granulocytes % 0.3 %; Immature Granulocytes Absolute 0.02 #; Lymphocytes % 33.7 % (21.2-54.2); Mean Corpuscular HGB Conc 32.7 GM/DL (32-36); Mean Corpuscular Volume 84.1 FL (87-102); Mean Platelet Volume 10.7 FL (9.6-12.0); Monocytes % 10.2 % (1.7-12.7); Neutrophils % 53.5 % (38.7-73.9); Platelet Count 244 T/CUMM (130-400); Red Blood Count 3.09 MC/CUMM (3.8-5.5); Red Cell Distribution Width 13.7 % (9.3-17.3); White Blood Count 6.1 T/CUMM (4-12)
[2021-06-03 02:55] LABS: Barbiturates Screen,Urine Negative (Negative); Benzodiazepines Screen,Urine Negative (Negative); Cannabinoid Screen,Urine Negative (Negative); Opiate Screen,Urine Negative (Negative); Phencyclidine Screen,Urine Negative (Negative)
[2021-06-03 02:56] LABS: INR 1.1; PT Patient Result 12.1 SECS (10.5-12.0)
[2021-06-03 03:03] LABS: Bilirubin,Urine Negative (Negative); Blood, Urine Moderate mg/dL (Negative); Glucose,Urine (UA) 50 mg/dL (Negative); Granular Casts,Urine 14 /LPF (0-1); Ketones,Urine Negative (Negative); Mucus,Urine Occasional /LPF (Occasional); Nitrite,Urine Negative (Negative); Protein,Urine >=500 MG/DL; RBC,Urine 156 /HPF (0-4); Urine Appearance CLOUDY (Clear); Urine Color Yellow (Yellow); Urine Specific Gravity 1.013 (1.001-1.035); Urine Urobilinogen < 2.0 EU/DL (0.2-1.0)
[2021-06-03 03:07] LABS: Alanine Aminotransferase 10 U/L (16-61); Albumin 2.7 G/DL (3.4-5.0); Alkaline Phosphatase 77 U/L (45-117); Aspartate Amino Transferase 9 U/L (0-37); Blood Urea Nitrogen 38 MG/DL (7-18); Calcium 8.7 MG/DL (8.5-10.1); Carbon Dioxide 31 MMOL/L (21-32); Estimated Glom Filtration Rate 71 ML/MIN; Glucose 131 MG/DL (74-106); Osmolality,Calculated 291.3 MOS/KG (273-304); Potassium 3.6 MMOL/L (3.5-5.1); Sodium 141 MMOL/L (136-145); Total Protein 7.3 G/DL (6.4-8.2)
[2021-06-03] MEDS ORDERED: MAGNESIUM SULF RIDER 2 GM/50 ML PREMIX IV STA (03:21)
[2021-06-03] MEDS ORDERED: cefTRIAXone 1,000 MG in SODIUM CHLORIDE 0.9% 100 ML IV STA (03:21)
[2021-06-03] MEDS ORDERED: DEXTROSE 50% 25 GM/50 ML VIAL IV PRN (04:10)
[2021-06-03] MEDS ORDERED: GLUCAGON 1 MG VIAL IM PRN (04:10)
[2021-06-03] MEDS ORDERED: CETIRIZINE 10 MG TABLET PO PRN (05:51)
[2021-06-03] MEDS: PIPERACILLIN/TAZOBACTAM 3,375 MG in SODIUM CHLORIDE 0.9% 100 ML IV SCH ×2 (06:06→15:18)
[2021-06-03] MEDS: LEVOTHYROXINE 75 MCG TABLET PO SCH (06:07)
[2021-06-03] MEDS ORDERED: DIVALPROEX 500 MG TABLET PO SCH (09:00)
[2021-06-03] MEDS ORDERED: LACOSAMIDE 50 MG TABLET PO SCH (09:00)
[2021-06-03] MEDS: carvediloL 12.5 MG TABLET PO SCH ×2 (10:29→20:48)
[2021-06-03] MEDS: FUROSEMIDE 40 MG TABLET PO SCH ×2 (10:29→16:56)
[2021-06-03] MEDS: hydrALAZINE 25 MG TABLET PO SCH (10:29)
[2021-06-03] MEDS: ASPIRIN CHEW 81 MG TABLET PO SCH (10:29)
[2021-06-03] MEDS: INSULIN REGULAR 100 UNIT/ML SUBCUT SCH ×4 (10:29→20:48)
[2021-06-03] MEDS: FERROUS SULFATE 325 MG TABLET PO SCH (10:30)
[2021-06-03] MEDS: HALOPERIDOL 5 MG TABLET PO SCH ×2 (10:31→20:48)
[2021-06-03] MEDS: TAMSULOSIN 0.4 MG CAPSULE PO SCH (10:31)
[2021-06-03] MEDS: amLODIPine 10 MG TABLET PO SCH (10:31)
[2021-06-03] MEDS: lisinopriL 5 MG TABLET PO SCH (10:32)
[2021-06-03] MEDS: ENOXAPARIN 40 MG/0.4 ML SYRINGE SUBCUT SCH (10:47)
[2021-06-03] MEDS: POTASSIUM CHLORIDE 20 MEQ TABLET PO SCH (10:48)
[2021-06-03] MEDS ORDERED: LACOSAMIDE INJ 100 MG in SODIUM CHLORIDE 0.9% 50 ML IV SCH (12:00)
[2021-06-03] MEDS: VALPROIC ACID INJ 500 MG in SODIUM CHLORIDE 0.9% 100 ML IV SCH (13:34)
[2021-06-03] MEDS: LACOSAMIDE INJ 150 MG in SODIUM CHLORIDE 0.9% 50 ML IV SCH ×2 (14:49→21:35)
[2021-06-04] MEDS: VALPROIC ACID INJ 500 MG in SODIUM CHLORIDE 0.9% 100 ML IV SCH ×2 (00:02→13:17)
[2021-06-04] MEDS: PIPERACILLIN/TAZOBACTAM 3,375 MG in SODIUM CHLORIDE 0.9% 100 ML IV SCH ×3 (01:11→18:22)
[2021-06-04 04:23] LABS: Basophils % 0.2 % (0.0-0.8); Eosinophils # 0.1 10*3/uL (0.0-0.87); Eosinophils % 1.7 % (0.00-10.9); Hematocrit 25.4 VOL% (42.0-52.0); Hemoglobin 8.3 GM/DL (14.0-18.0); Immature Granulocytes % 0.3 %; Immature Granulocytes Absolute 0.02 #; Lymphocytes # 1.9 10*3/uL (1.4-4.0); Mean Corpuscular HGB Conc 32.7 GM/DL (32-36); Mean Corpuscular Volume 84.1 FL (87-102); Mean Platelet Volume 10.5 FL (9.6-12.0); Monocytes % 10.3 % (1.7-12.7); Neutrophils % 55.5 % (38.7-73.9); Platelet Count 222 T/CUMM (130-400); Red Blood Count 3.02 MC/CUMM (3.8-5.5); Red Cell Distribution Width 13.6 % (9.3-17.3); White Blood Count 5.9 T/CUMM (4-12)
[2021-06-04 04:50] LABS: Calcium 8.6 MG/DL (8.5-10.1); Osmolality,Calculated 290.5 MOS/KG (273-304); Potassium 3.7 MMOL/L (3.5-5.1)
[2021-06-04] MEDS: LEVOTHYROXINE 75 MCG TABLET PO SCH (06:07)
[2021-06-04] MEDS: INSULIN REGULAR 100 UNIT/ML SUBCUT SCH ×4 (08:24→20:52)
[2021-06-04] MEDS: lisinopriL 5 MG TABLET PO SCH (08:26)
[2021-06-04] MEDS: FUROSEMIDE 40 MG TABLET PO SCH ×2 (08:26→16:51)
[2021-06-04] MEDS: ASPIRIN CHEW 81 MG TABLET PO SCH (08:26)
[2021-06-04] MEDS: TAMSULOSIN 0.4 MG CAPSULE PO SCH (08:26)
[2021-06-04] MEDS: amLODIPine 10 MG TABLET PO SCH (08:26)
[2021-06-04] MEDS: carvediloL 12.5 MG TABLET PO SCH ×2 (08:26→20:52)
[2021-06-04] MEDS: hydrALAZINE 25 MG TABLET PO SCH (08:26)
[2021-06-04] MEDS: FERROUS SULFATE 325 MG TABLET PO SCH (08:26)
[2021-06-04] MEDS: HALOPERIDOL 5 MG TABLET PO SCH ×2 (08:26→20:52)
[2021-06-04] MEDS: POTASSIUM CHLORIDE 20 MEQ TABLET PO SCH (08:27)
[2021-06-04] MEDS: ENOXAPARIN 40 MG/0.4 ML SYRINGE SUBCUT SCH (08:32)
[2021-06-04] MEDS: LACOSAMIDE INJ 150 MG in SODIUM CHLORIDE 0.9% 50 ML IV SCH ×2 (08:46→22:26)
[2021-06-05] MEDS: VALPROIC ACID INJ 500 MG in SODIUM CHLORIDE 0.9% 100 ML IV SCH ×2 (00:45→14:59)
[2021-06-05] MEDS: PIPERACILLIN/TAZOBACTAM 3,375 MG in SODIUM CHLORIDE 0.9% 100 ML IV SCH ×2 (02:32→11:22)
[2021-06-05 05:01] LABS: Basophils % 0.4 % (0.0-0.8); Eosinophils # 0.1 10*3/uL (0.0-0.87); Eosinophils % 2.2 % (0.00-10.9); Immature Granulocytes % 0.2 %; Immature Granulocytes Absolute 0.01 #; Lymphocytes # 1.6 10*3/uL (1.4-4.0); Lymphocytes % 29.1 % (21.2-54.2); Mean Corpuscular HGB Conc 33.3 GM/DL (32-36); Mean Corpuscular Volume 83.1 FL (87-102); Mean Platelet Volume 10.2 FL (9.6-12.0); Monocytes % 11.8 % (1.7-12.7); Neutrophils % 56.3 % (38.7-73.9); Platelet Count 229 T/CUMM (130-400); Red Blood Count 3.25 MC/CUMM (3.8-5.5); Red Cell Distribution Width 13.5 % (9.3-17.3); White Blood Count 5.6 T/CUMM (4-12)
[2021-06-05 05:29] LABS: Osmolality,Calculated 293.3 MOS/KG (273-304)
[2021-06-05] MEDS: LEVOTHYROXINE 75 MCG TABLET PO SCH (06:36)
[2021-06-05] MEDS: INSULIN REGULAR 100 UNIT/ML SUBCUT SCH ×4 (08:53→21:48)
[2021-06-05] MEDS: carvediloL 12.5 MG TABLET PO SCH ×2 (08:54→21:48)
[2021-06-05] MEDS: lisinopriL 5 MG TABLET PO SCH (08:54)
[2021-06-05] MEDS: FUROSEMIDE 40 MG TABLET PO SCH ×2 (08:54→16:16)
[2021-06-05] MEDS: amLODIPine 10 MG TABLET PO SCH (08:54)
[2021-06-05] MEDS: FERROUS SULFATE 325 MG TABLET PO SCH (08:54)
[2021-06-05] MEDS: hydrALAZINE 25 MG TABLET PO SCH (08:54)
[2021-06-05] MEDS: ENOXAPARIN 40 MG/0.4 ML SYRINGE SUBCUT SCH (08:55)
[2021-06-05] MEDS: TAMSULOSIN 0.4 MG CAPSULE PO SCH (08:55)
[2021-06-05] MEDS: POTASSIUM CHLORIDE 20 MEQ TABLET PO SCH (08:55)
[2021-06-05] MEDS: HALOPERIDOL 5 MG TABLET PO SCH ×2 (08:55→21:48)
[2021-06-05] MEDS: ASPIRIN CHEW 81 MG TABLET PO SCH (08:55)
[2021-06-05] MEDS: LACOSAMIDE INJ 150 MG in SODIUM CHLORIDE 0.9% 50 ML IV SCH ×2 (08:56→21:51)
[2021-06-05] MEDS ORDERED: MAGNESIUM SULF RIDER 2 GM/50 ML PREMIX IV PRN (12:36)
[2021-06-05] MEDS ORDERED: MAGNESIUM SULF RIDER 4 GM/100 ML PREMIX IV PRN (12:36)
[2021-06-05] MEDS: cefTRIAXone 1,000 MG in SODIUM CHLORIDE 0.9% 100 ML IV SCH (17:20)
[2021-06-06] MEDS: VALPROIC ACID INJ 500 MG in SODIUM CHLORIDE 0.9% 100 ML IV SCH ×2 (03:26→16:05)
[2021-06-06] MEDS: LEVOTHYROXINE 75 MCG TABLET PO SCH (06:01)
[2021-06-06] MEDS: hydrALAZINE 25 MG TABLET PO SCH (08:42)
[2021-06-06] MEDS: POTASSIUM CHLORIDE 20 MEQ TABLET PO SCH (08:42)
[2021-06-06] MEDS: ASPIRIN CHEW 81 MG TABLET PO SCH (08:42)
[2021-06-06] MEDS: carvediloL 12.5 MG TABLET PO SCH ×2 (08:42→21:50)
[2021-06-06] MEDS: amLODIPine 10 MG TABLET PO SCH (08:42)
[2021-06-06] MEDS: TAMSULOSIN 0.4 MG CAPSULE PO SCH (08:42)
[2021-06-06] MEDS: FUROSEMIDE 40 MG TABLET PO SCH ×2 (08:43→16:04)
[2021-06-06] MEDS: ENOXAPARIN 40 MG/0.4 ML SYRINGE SUBCUT SCH (08:43)
[2021-06-06] MEDS: INSULIN REGULAR 100 UNIT/ML SUBCUT SCH ×4 (08:43→21:55)
[2021-06-06] MEDS: HALOPERIDOL 5 MG TABLET PO SCH ×2 (08:43→21:51)
[2021-06-06] MEDS: FERROUS SULFATE 325 MG TABLET PO SCH (08:43)
[2021-06-06] MEDS: lisinopriL 5 MG TABLET PO SCH (08:43)
[2021-06-06] MEDS: LACOSAMIDE INJ 150 MG in SODIUM CHLORIDE 0.9% 50 ML IV SCH ×2 (11:06→21:55)
[2021-06-06] MEDS ORDERED: TUBERCULIN SKIN TEST 0.1 ML SYRINGE INTRADERM ONE (15:00)
[2021-06-06] MEDS: cefTRIAXone 1,000 MG in SODIUM CHLORIDE 0.9% 100 ML IV SCH (17:38)
[2021-06-07] MEDS: VALPROIC ACID INJ 500 MG in SODIUM CHLORIDE 0.9% 100 ML IV SCH ×2 (03:16→17:06)
[2021-06-07] MEDS: LEVOTHYROXINE 75 MCG TABLET PO SCH (06:10)
[2021-06-07] MEDS: INSULIN REGULAR 100 UNIT/ML SUBCUT SCH ×4 (09:16→21:30)
[2021-06-07] MEDS: FUROSEMIDE 40 MG TABLET PO SCH ×2 (09:17→17:06)
[2021-06-07] MEDS: lisinopriL 5 MG TABLET PO SCH (09:17)
[2021-06-07] MEDS: HALOPERIDOL 5 MG TABLET PO SCH ×2 (09:17→20:57)
[2021-06-07] MEDS: ASPIRIN CHEW 81 MG TABLET PO SCH (09:17)
[2021-06-07] MEDS: amLODIPine 10 MG TABLET PO SCH (09:17)
[2021-06-07] MEDS: POTASSIUM CHLORIDE 20 MEQ TABLET PO SCH (09:17)
[2021-06-07] MEDS: carvediloL 12.5 MG TABLET PO SCH ×2 (09:17→20:57)
[2021-06-07] MEDS: TAMSULOSIN 0.4 MG CAPSULE PO SCH (09:17)
[2021-06-07] MEDS: FERROUS SULFATE 325 MG TABLET PO SCH (09:18)
[2021-06-07 09:22] LABS: Calcium 8.6 MG/DL (8.5-10.1); Osmolality,Calculated 292.5 MOS/KG (273-304); Potassium 4.1 MMOL/L (3.5-5.1)
[2021-06-07] MEDS: hydrALAZINE 25 MG TABLET PO SCH (09:28)
[2021-06-07] MEDS: LACOSAMIDE INJ 150 MG in SODIUM CHLORIDE 0.9% 50 ML IV SCH ×2 (09:28→20:58)
[2021-06-07] MEDS: ENOXAPARIN 40 MG/0.4 ML SYRINGE SUBCUT SCH (09:28)
[2021-06-07] MEDS: cefTRIAXone 1,000 MG in SODIUM CHLORIDE 0.9% 100 ML IV SCH (16:20)
[2021-06-08] MEDS: VALPROIC ACID INJ 500 MG in SODIUM CHLORIDE 0.9% 100 ML IV SCH ×2 (03:12→15:22)
[2021-06-08] MEDS: LEVOTHYROXINE 75 MCG TABLET PO SCH (05:59)
[2021-06-08] MEDS: FERROUS SULFATE 325 MG TABLET PO SCH (09:07)
[2021-06-08] MEDS: FUROSEMIDE 40 MG TABLET PO SCH ×2 (09:07→16:55)
[2021-06-08] MEDS: TAMSULOSIN 0.4 MG CAPSULE PO SCH (09:07)
[2021-06-08] MEDS: ASPIRIN CHEW 81 MG TABLET PO SCH (09:07)
[2021-06-08] MEDS: POTASSIUM CHLORIDE 20 MEQ TABLET PO SCH (09:08)
[2021-06-08] MEDS: amLODIPine 10 MG TABLET PO SCH (09:08)
[2021-06-08] MEDS: lisinopriL 5 MG TABLET PO SCH (09:08)
[2021-06-08] MEDS: carvediloL 12.5 MG TABLET PO SCH ×2 (09:08→20:51)
[2021-06-08] MEDS: hydrALAZINE 25 MG TABLET PO SCH (09:08)
[2021-06-08] MEDS: HALOPERIDOL 5 MG TABLET PO SCH ×2 (09:08→20:51)
[2021-06-08] MEDS: ENOXAPARIN 40 MG/0.4 ML SYRINGE SUBCUT SCH (09:08)
[2021-06-08] MEDS: LACOSAMIDE INJ 150 MG in SODIUM CHLORIDE 0.9% 50 ML IV SCH ×2 (09:17→20:50)
[2021-06-08] MEDS: INSULIN REGULAR 100 UNIT/ML SUBCUT SCH ×4 (10:32→20:58)
[2021-06-08] MEDS: NYSTATIN POWDER 15 GM BOTTLE TOP SCH ×2 (12:55→21:01)
[2021-06-08] MEDS: cefTRIAXone 1,000 MG in SODIUM CHLORIDE 0.9% 100 ML IV SCH (16:55)
[2021-06-08] MEDS: ACETAMINOPHEN 325 MG TABLET PO PRN (17:38)
[2021-06-09] MEDS: VALPROIC ACID INJ 500 MG in SODIUM CHLORIDE 0.9% 100 ML IV SCH ×2 (02:29→16:15)
[2021-06-09] MEDS: LEVOTHYROXINE 75 MCG TABLET PO SCH (06:01)
[2021-06-09 08:05] LABS: Basophils % 0.3 % (0.0-0.8); Eosinophils # 0.2 10*3/uL (0.0-0.87); Hematocrit 25.4 VOL% (42.0-52.0); Hemoglobin 8.3 GM/DL (14.0-18.0); Immature Granulocytes % 0.5 %; Immature Granulocytes Absolute 0.03 #; Lymphocytes # 1.6 10*3/uL (1.4-4.0); Lymphocytes % 28.1 % (21.2-54.2); Mean Corpuscular HGB Conc 32.7 GM/DL (32-36); Mean Corpuscular Volume 83.3 FL (87-102); Mean Platelet Volume 10.4 FL (9.6-12.0); Monocytes % 10.4 % (1.7-12.7); Neutrophils % 57.7 % (38.7-73.9); Platelet Count 214 T/CUMM (130-400); Red Blood Count 3.05 MC/CUMM (3.8-5.5); Red Cell Distribution Width 13.4 % (9.3-17.3); White Blood Count 5.8 T/CUMM (4-12)
[2021-06-09 08:29] LABS: Calcium 8.6 MG/DL (8.5-10.1); Osmolality,Calculated 292.4 MOS/KG (273-304)
[2021-06-09] MEDS: HALOPERIDOL 5 MG TABLET PO SCH ×2 (08:56→20:30)
[2021-06-09] MEDS: ASPIRIN CHEW 81 MG TABLET PO SCH (08:56)
[2021-06-09] MEDS: INSULIN REGULAR 100 UNIT/ML SUBCUT SCH ×4 (08:56→20:32)
[2021-06-09] MEDS: hydrALAZINE 25 MG TABLET PO SCH (08:56)
[2021-06-09] MEDS: TAMSULOSIN 0.4 MG CAPSULE PO SCH (08:57)
[2021-06-09] MEDS: carvediloL 12.5 MG TABLET PO SCH ×2 (08:57→20:30)
[2021-06-09] MEDS: ENOXAPARIN 40 MG/0.4 ML SYRINGE SUBCUT SCH (08:57)
[2021-06-09] MEDS: FERROUS SULFATE 325 MG TABLET PO SCH (08:57)
[2021-06-09] MEDS: amLODIPine 10 MG TABLET PO SCH (08:57)
[2021-06-09] MEDS: lisinopriL 5 MG TABLET PO SCH (08:57)
[2021-06-09] MEDS: FUROSEMIDE 40 MG TABLET PO SCH ×2 (08:57→16:16)
[2021-06-09] MEDS: POTASSIUM CHLORIDE 20 MEQ TABLET PO SCH (08:58)
[2021-06-09] MEDS: NYSTATIN POWDER 15 GM BOTTLE TOP SCH ×2 (08:58→20:32)
[2021-06-09] MEDS: LACOSAMIDE INJ 150 MG in SODIUM CHLORIDE 0.9% 50 ML IV SCH ×2 (10:51→22:21)
[2021-06-09] MEDS: cefTRIAXone 1,000 MG in SODIUM CHLORIDE 0.9% 100 ML IV SCH (17:09)
[2021-06-10] MEDS: VALPROIC ACID INJ 500 MG in SODIUM CHLORIDE 0.9% 100 ML IV SCH ×2 (02:00→16:00)
[2021-06-10] MEDS: LEVOTHYROXINE 75 MCG TABLET PO SCH (05:52)
[2021-06-10] MEDS: ASPIRIN CHEW 81 MG TABLET PO SCH (09:06)
[2021-06-10] MEDS: carvediloL 12.5 MG TABLET PO SCH ×3 (09:06→22:17)
[2021-06-10] MEDS: lisinopriL 5 MG TABLET PO SCH (09:06)
[2021-06-10] MEDS: FERROUS SULFATE 325 MG TABLET PO SCH (09:06)
[2021-06-10] MEDS: FUROSEMIDE 40 MG TABLET PO SCH ×2 (09:06→15:58)
[2021-06-10] MEDS: TAMSULOSIN 0.4 MG CAPSULE PO SCH (09:06)
[2021-06-10] MEDS: amLODIPine 10 MG TABLET PO SCH (09:06)
[2021-06-10] MEDS: hydrALAZINE 25 MG TABLET PO SCH (09:06)
[2021-06-10] MEDS: HALOPERIDOL 5 MG TABLET PO SCH ×3 (09:06→22:17)
[2021-06-10] MEDS: POTASSIUM CHLORIDE 20 MEQ TABLET PO SCH (09:06)
[2021-06-10] MEDS: ENOXAPARIN 40 MG/0.4 ML SYRINGE SUBCUT SCH (09:07)
[2021-06-10] MEDS: LACOSAMIDE INJ 150 MG in SODIUM CHLORIDE 0.9% 50 ML IV SCH ×2 (09:25→21:18)
[2021-06-10] MEDS: NYSTATIN POWDER 15 GM BOTTLE TOP SCH ×2 (09:29→21:27)
[2021-06-10] MEDS: INSULIN REGULAR 100 UNIT/ML SUBCUT SCH ×4 (09:30→21:27)
[2021-06-11] MEDS: ACETAMINOPHEN 325 MG TABLET PO PRN (00:58)
[2021-06-11] MEDS: VALPROIC ACID INJ 500 MG in SODIUM CHLORIDE 0.9% 100 ML IV SCH ×2 (03:20→15:07)
[2021-06-11] MEDS: LEVOTHYROXINE 75 MCG TABLET PO SCH (06:09)
[2021-06-11] MEDS: hydrALAZINE 25 MG TABLET PO SCH (08:59)
[2021-06-11] MEDS: ASPIRIN CHEW 81 MG TABLET PO SCH (09:00)
[2021-06-11] MEDS: lisinopriL 5 MG TABLET PO SCH (09:01)
[2021-06-11] MEDS: carvediloL 12.5 MG TABLET PO SCH ×2 (09:02→21:51)
[2021-06-11] MEDS: TAMSULOSIN 0.4 MG CAPSULE PO SCH (09:03)
[2021-06-11] MEDS: HALOPERIDOL 5 MG TABLET PO SCH ×2 (09:04→21:50)
[2021-06-11] MEDS: amLODIPine 10 MG TABLET PO SCH (09:04)
[2021-06-11] MEDS: FERROUS SULFATE 325 MG TABLET PO SCH (09:05)
[2021-06-11] MEDS: POTASSIUM CHLORIDE 20 MEQ TABLET PO SCH (09:06)
[2021-06-11] MEDS: FUROSEMIDE 40 MG TABLET PO SCH ×2 (09:07→17:32)
[2021-06-11] MEDS: ENOXAPARIN 40 MG/0.4 ML SYRINGE SUBCUT SCH (09:08)
[2021-06-11] MEDS: NYSTATIN POWDER 15 GM BOTTLE TOP SCH ×2 (09:08→21:51)
[2021-06-11] MEDS: INSULIN REGULAR 100 UNIT/ML SUBCUT SCH ×4 (09:12→21:48)
[2021-06-12] MEDS: VALPROIC ACID INJ 500 MG in SODIUM CHLORIDE 0.9% 100 ML IV SCH ×2 (02:22→15:57)
[2021-06-12] MEDS: LEVOTHYROXINE 75 MCG TABLET PO SCH (07:11)
[2021-06-12] MEDS: INSULIN REGULAR 100 UNIT/ML SUBCUT SCH ×4 (08:56→21:15)
[2021-06-12] MEDS: ASPIRIN CHEW 81 MG TABLET PO SCH (08:58)
[2021-06-12] MEDS: FERROUS SULFATE 325 MG TABLET PO SCH (08:58)
[2021-06-12] MEDS: HALOPERIDOL 5 MG TABLET PO SCH ×2 (08:58→21:15)
[2021-06-12] MEDS: hydrALAZINE 25 MG TABLET PO SCH (08:58)
[2021-06-12] MEDS: amLODIPine 10 MG TABLET PO SCH (08:58)
[2021-06-12] MEDS: FUROSEMIDE 40 MG TABLET PO SCH ×2 (08:58→15:58)
[2021-06-12] MEDS: TAMSULOSIN 0.4 MG CAPSULE PO SCH (08:58)
[2021-06-12] MEDS: carvediloL 12.5 MG TABLET PO SCH ×2 (08:58→21:15)
[2021-06-12] MEDS: POTASSIUM CHLORIDE 20 MEQ TABLET PO SCH (08:58)
[2021-06-12] MEDS: NYSTATIN POWDER 15 GM BOTTLE TOP SCH ×2 (08:59→21:15)
[2021-06-12] MEDS: lisinopriL 5 MG TABLET PO SCH (09:01)
[2021-06-12] MEDS: ENOXAPARIN 40 MG/0.4 ML SYRINGE SUBCUT SCH (09:01)
[2021-06-12] MEDS: ACETAMINOPHEN 325 MG TABLET PO PRN (16:05)
[2021-06-13] MEDS: VALPROIC ACID INJ 500 MG in SODIUM CHLORIDE 0.9% 100 ML IV SCH (02:13)
[2021-06-13] MEDS: LEVOTHYROXINE 75 MCG TABLET PO SCH (06:13)
[2021-06-13] MEDS: INSULIN REGULAR 100 UNIT/ML SUBCUT SCH ×2 (09:47→12:12)
[2021-06-13] MEDS: FUROSEMIDE 40 MG TABLET PO SCH (09:47)
[2021-06-13] MEDS: ENOXAPARIN 40 MG/0.4 ML SYRINGE SUBCUT SCH (09:48)
[2021-06-13] MEDS: ASPIRIN CHEW 81 MG TABLET PO SCH (09:49)
[2021-06-13] MEDS: POTASSIUM CHLORIDE 20 MEQ TABLET PO SCH (09:49)
[2021-06-13] MEDS: carvediloL 12.5 MG TABLET PO SCH (09:49)
[2021-06-13] MEDS: HALOPERIDOL 5 MG TABLET PO SCH (09:49)
[2021-06-13] MEDS: lisinopriL 5 MG TABLET PO SCH (09:49)
[2021-06-13] MEDS: TAMSULOSIN 0.4 MG CAPSULE PO SCH (09:49)
[2021-06-13] MEDS: amLODIPine 10 MG TABLET PO SCH (09:49)
[2021-06-13] MEDS: hydrALAZINE 25 MG TABLET PO SCH (09:49)
[2021-06-13] MEDS: FERROUS SULFATE 325 MG TABLET PO SCH (09:49)
[2021-06-13] MEDS: NYSTATIN POWDER 15 GM BOTTLE TOP SCH (09:50)
[2021-06-13 12:01] VITALS: BP 130/71
== END 2021-06-13 14:00 | DRG 861 ==
LOC: EDUNIT# → N.ED 01:26 → N.EDINP 04:10 → SUATTDRO 04:10 → N.4E 05:24
PROVIDERS: ADMIT Internal Medicine; ATTEND Internal Medicine